=== PATIENT | female | born 1975 | race Hispanic/Latino ===

== ENCOUNTER 2017-11-12 22:22 | Emergency (ER) | payer MEDICAID ==
[~2017-11-12 22:22] MED LIST: AEC81 PO; ATOR10 PO; CANA300T PO; FENO48TA4 PO; HUMALOG 70/30 SQ; INSU100V12 SQ; LINA5TAB PO; LOSA100T29 PO; METF10004 PO; PRAV20TA4 PO; SERT50TA12 PO
[2017-11-12 23:42] LABS: BASOPHILS % (AUTO) 0.5 % (0.0-5.0); EOSINOPHILS % (AUTO) 3.3 % (0.0-8.0); HEMATOCRIT 39.7 % (36-48); LYMPHOCYTES % (AUTO) 34.2 % (21.0-51.0); MEAN CORPUSCULAR HEMOGLOBIN 29.8 pg (27.0-33.0); MEAN CORPUSCULAR HGB CONC 34.5 g/dL (32.0-36.0); MEAN CORPUSCULAR VOLUME 86.3 fL (79-99); MONOCYTES % (AUTO) 7.9 % (3.0-13.0); NEUTROPHILS % (AUTO) 54.1 % (40.0-77.0); PLATELET COUNT (AUTO) 168 K/uL (130-400); RED CELL DISTRIBUTION WIDTH 12.6 % (11.0-15.5); WHITE BLOOD COUNT (AUTO) 5.4 K/uL (4.8-10.8)
[2017-11-12] MEDS ORDERED: KETOROLAC TROMETHAMINE 30MG/ML ONE (23:54)
[2017-11-12] MEDS ORDERED: ONDANSETRON HCL 4 MG/2 ML VIAL ONE (23:54)
[2017-11-13 00:01] LABS: ALBUMIN 3.3 g/dL (3.5-5.0); BILIRUBIN,TOTAL 0.3 mg/dL (0.2-1.0); CREATININE 1.2 mg/dL (0.5-1.5); POTASSIUM 4.4 mmol/L (3.5-5.1); TOTAL PROTEIN, SERUM 7.6 g/dL (6.0-8.3)
[2017-11-13] MEDS ORDERED: SODIUM CHLORIDE 0.9% 1000ML 1,000 ML IV ONE (00:46)
[2017-11-13] MEDS ORDERED: INSULIN HUMULIN R 100 UNIT/ML 3ML ONE ×2 (00:48→02:50)
[2017-11-13 01:38] LABS: APPEARANCE,URINE Clear (CLEAR); BILIRUBIN,URINE Negative (NEGATIVE); COLOR,URINE Yellow (YELLOW); GLUCOSE, URINE (UA) >=1000 mg/dL (NEGATIVE); KETONES,URINE Negative (NEGATIVE); LEUKOCYTE ESTERASE ,URINE Negative (NEGATIVE); NITRATE,URINE Negative (NEGATIVE); OCCULT BLOOD,URINE Negative (NEGATIVE); PROTEIN,URINE Negative (NEGATIVE); UROBILINOGEN,URINE 0.2 mg/dL (0.2-1.0)
[2017-11-13 01:52] LABS: BACTERIA,URINE None Seen /HPF (None Seen); RBC,URINE None Seen /HPF (0-1); SQUAMOUS EPITHELIAL CELL,UR Few /LPF (0-2); WBC,URINE None Seen /HPF (0-1); YEAST,URINE BUDDING None Seen /HPF (None Seen)
== END 2017-11-13 03:59 | disposition home or self-care (01) ==
LOC: EDH 22:22
DX: E11.65 Type 2 diabetes mellitus with hyperglycemia (principal); E11.9 Type 2 diabetes mellitus without complications; I10 Essential (primary) hypertension; Z87.442 Personal history of urinary calculi; Z88.0 Allergy status to penicillin; Z88.1 Allergy status to other antibiotic agents
CPT/HCPCS: 36415; 74176; 80053; 81001; 82009; 82948 ×3; 85025; 96374; 96375; 96376; 99285; J1815 ×2; J1885; J2405; J7030

== ENCOUNTER 2017-12-05 18:20 | Emergency (ER) | payer MEDICAID ==
[2017-12-05] MEDS ORDERED: ASPIRIN 325 MG TABLET ONE (18:35)
[2017-12-05 19:01] LABS: BASOPHILS % (AUTO) 0.6 % (0.0-5.0); EOSINOPHILS % (AUTO) 1.5 % (0.0-8.0); LYMPHOCYTES % (AUTO) 34.8 % (21.0-51.0); MEAN CORPUSCULAR HEMOGLOBIN 29.8 pg (27.0-33.0); MEAN CORPUSCULAR HGB CONC 35.4 g/dL (32.0-36.0); MEAN CORPUSCULAR VOLUME 84.3 fL (79-99); MONOCYTES % (AUTO) 7.9 % (3.0-13.0); NEUTROPHILS % (AUTO) 55.2 % (40.0-77.0); NUCLEATED RED BLOOD CELLS 0.1 % (0.0-0.19); PLATELET COUNT (AUTO) 190 K/uL (130-400); RED BLOOD CELL COUNT(AUTO) 4.27 MIL/uL (4.00-5.50)
[2017-12-05 19:10] LABS: CARBON DIOXIDE 26 mmol/L (21-32); CHLORIDE 99 mmol/L (101-111); CREATININE 1.6 mg/dL (0.5-1.5); GLOMERULAR FILTR. RATE CALC 38 mL/min (>60); GLUCOSE,RANDOM 236 mg/dL (70-105); POTASSIUM 3.6 mmol/L (3.5-5.1); SODIUM SERUM 136 mmol/L (136-145); UREA NITROGEN, BLOOD 30 mg/dL (7-18)
[2017-12-05 19:11] LABS: APPEARANCE,URINE Clear (CLEAR); BILIRUBIN,URINE Negative (NEGATIVE); COLOR,URINE Yellow (YELLOW); GLUCOSE, URINE (UA) 250 mg/dL (NEGATIVE); KETONES,URINE Trace mg/dL (NEGATIVE); LEUKOCYTE ESTERASE ,URINE Moderate (NEGATIVE); NITRATE,URINE Negative (NEGATIVE); OCCULT BLOOD,URINE Negative (NEGATIVE); PROTEIN,URINE Trace (NEGATIVE)
[2017-12-05 19:12] LABS: INR 0.87 (0.85-1.15); PARTIAL THROMBOPLASTIN TIME 23.6 SEC (26.3-35.5); PROTHROMBIN TIME 9.2 SEC (9.6-11.6)
[2017-12-05 19:18] LABS: AMPHET/METH SCREEN,URINE NEGATIVE (NEGATIVE); BARBITURATE SCREEN, URINE NEGATIVE (NEGATIVE); BENZODIAZEPINES SCREEN,URINE NEGATIVE (NEGATIVE); CANNABINOID SCREEN,URINE NEGATIVE (NEGATIVE); COCAINE SCREEN,URINE NEGATIVE (NEGATIVE); OPIATE SCREEN,URINE NEGATIVE (NEGATIVE); PHENCYCLIDINE SCREEN,URINE NEGATIVE (NEGATIVE)
[2017-12-05 19:24] LABS: ALANINE AMINOTRANSFERASE 30 U/L (12-78); ASPARTATE AMINOTRANSFERASE 22 U/L (10-37); BILIRUBIN,TOTAL 0.3 mg/dL (0.2-1.0); CREATINE KINASE MB < 0.5 ng/mL (0.5-3.6); CREATINE KINASE, TOTAL 94 U/L (21-232); MYOGLOBIN 29 ng/mL (10-92); TOTAL PROTEIN, SERUM 7.2 g/dL (6.0-8.3)
[2017-12-05 19:52] LABS: BACTERIA,URINE Few /HPF (None Seen); RBC,URINE 0-1 /HPF (0-1); SQUAMOUS EPITHELIAL CELL,UR Moderate /LPF (0-2)
[2017-12-05 19:53] LABS: MUCUS,URINE Rare LPF (None Seen)
== END 2017-12-05 23:29 | disposition home or self-care (01) ==
LOC: EDH 18:20
DX: R07.89 Other chest pain (principal); R55 Syncope and collapse; I10 Essential (primary) hypertension; E11.9 Type 2 diabetes mellitus without complications; Z87.442 Personal history of urinary calculi; Z90.710 Acquired absence of both cervix and uterus; Z88.0 Allergy status to penicillin; Z88.8 Allergy status to other drugs, medicaments and biological substances
CPT/HCPCS: 36415; 70450; 71045; 80053; 80305; 81001; 82550; 82553; 83874; 84484; 85025; 85378; 85610; 85730; 93005

== ENCOUNTER 2018-09-29 23:59 | Observation (INO) | payer MEDICAID ==
[~2018-09-29] VITALS: Ht 154.9 cm; Wt 95.3 kg
[~2018-09-29 23:59] MED LIST changes: +ACET325C5 PO; -CANA300T PO; +HUM10VIA SQ; -HUMALOG 70/30 SQ; -INSU100V12 SQ; +LISI1TAB13 PO; -LOSA100T29 PO; -METF10004 PO; -PRAV20TA4 PO; +PREG75 PO
[2018-09-30] MEDS ORDERED: DEXTROSE 50%-WATER 25 GM/50 ML VIAL ONE (00:37)
[2018-09-30] MEDS ORDERED: DEXTROSE 10%-WATER 1,000 ML IV ONE (00:38)
[2018-09-30 01:10] LABS: BASOPHILS % (AUTO) 0.3 % (0.0-5.0); EOSINOPHILS % (AUTO) 1.7 % (0.0-8.0); LYMPHOCYTES % (AUTO) 35.3 % (21.0-51.0); MEAN CORPUSCULAR HEMOGLOBIN 28.5 pg (27.0-33.0); MEAN CORPUSCULAR HGB CONC 33.4 g/dL (32.0-36.0); MEAN CORPUSCULAR VOLUME 85.2 fL (79-99); MONOCYTES % (AUTO) 8.9 % (3.0-13.0); NEUTROPHILS % (AUTO) 53.8 % (40.0-77.0); NUCLEATED RED BLOOD CELLS 0.1 % (0.0-0.19); PLATELET COUNT (AUTO) 198 K/uL (130-400); RED BLOOD CELL COUNT(AUTO) 4.34 MIL/uL (4.00-5.50); RED CELL DISTRIBUTION WIDTH 13.1 % (11.0-15.5); WHITE BLOOD COUNT (AUTO) 8.2 K/uL (4.8-10.8)
[2018-09-30 01:26] LABS: ALBUMIN 2.9 g/dL (3.5-5.0); BILIRUBIN,TOTAL 0.3 mg/dL (0.2-1.0); CREATININE 1.1 mg/dL (0.5-1.5); POTASSIUM 4.1 mmol/L (3.5-5.1); TOTAL PROTEIN, SERUM 7.1 g/dL (6.0-8.3)
[2018-09-30 01:29] LABS: INR 0.87 (0.85-1.15); PROTHROMBIN TIME 9.2 SEC (9.6-11.6)
[2018-09-30] MEDS ORDERED: DEXTROSE 10 % IN WATER 500 ML IV SCH (05:00)
[2018-09-30] MEDS ORDERED: DEXTROSE 10%-WATER 1,000 ML IV SCH (05:00)
[2018-09-30 08:00] VITALS: BP 127/63
[2018-09-30] MEDS ORDERED: ACETAMINOPHEN 325 MG TAB PO PRN (10:00)
[2018-09-30 11:37] VITALS: BP 148/78
[2018-09-30] MEDS: HYDROCHLOROTHIAZIDE 25 MG TABLET PO SCH (15:14)
[2018-09-30] MEDS: ASPIRIN 81 MG EC TAB PO SCH (15:14)
[2018-09-30] MEDS: LISINOPRIL 20 MG TABLET PO SCH (15:14)
[2018-09-30] MEDS: FENOFIBRATE NANOCRYSTALLIZED 48 MG TAB PO SCH (15:15)
[2018-09-30] MEDS: PREGABALIN 75 MG CAPSULE PO SCH (15:16)
[2018-09-30 15:49] VITALS: BP 144/93
[2018-09-30 20:00] VITALS: BP 158/83
[2018-09-30] MEDS: SERTRALINE HCL 50 MG TABLET PO SCH (21:18)
[2018-09-30] MEDS: ATORVASTATIN CALCIUM 10 MG TABLET PO SCH (21:18)
[2018-09-30 23:30] VITALS: BP 153/171
[2018-10-01 03:55] VITALS: BP 140/76
[2018-10-01 04:46] LABS: HEMATOCRIT 33.6 % (36-48); MEAN CORPUSCULAR HEMOGLOBIN 29.2 pg (27.0-33.0); MEAN CORPUSCULAR HGB CONC 34.3 g/dL (32.0-36.0); NUCLEATED RED BLOOD CELLS 0.1 % (0.0-0.19); PLATELET COUNT (AUTO) 170 K/uL (130-400); RED BLOOD CELL COUNT(AUTO) 3.95 MIL/uL (4.00-5.50); RED CELL DISTRIBUTION WIDTH 12.7 % (11.0-15.5); WHITE BLOOD COUNT (AUTO) 7.3 K/uL (4.8-10.8)
[2018-10-01 04:50] LABS: CREATININE 0.9 mg/dL (0.5-1.5); POTASSIUM 4.5 mmol/L (3.5-5.1)
[2018-10-01 05:33] LABS: BASOPHILS % (MANUAL) 1 % (0-2); EOSINOPHILS % (MANUAL) 2 % (1-6); LYMPHOCYTES % (MANUAL) 44 % (22-44); MONOCYTES % (MANUAL) 7 % (2-9); REACTIVE LYMPHOCYTES 4 % (0-0); SEGMENTED NEUTROPHILS % 42 % (40-70)
[2018-10-01 05:34] LABS: MAN.DIFF COMMENT-IMPRESSION MANUAL DIFFERENTIAL; PLATELET MORPHOLOGY COMMENT ADEQUATE
[2018-10-01 07:30] VITALS: BP 145/69
[2018-10-01] MEDS: FENOFIBRATE NANOCRYSTALLIZED 48 MG TAB PO SCH (08:43)
[2018-10-01] MEDS: ASPIRIN 81 MG EC TAB PO SCH (08:43)
[2018-10-01] MEDS: HYDROCHLOROTHIAZIDE 25 MG TABLET PO SCH (08:44)
[2018-10-01] MEDS: LISINOPRIL 20 MG TABLET PO SCH (08:44)
[2018-10-01] MEDS: PREGABALIN 75 MG CAPSULE PO SCH (08:44)
[2018-10-01 11:00] VITALS: BP 131/75
[2018-10-01 13:07] LABS: APPEARANCE,URINE Clear (CLEAR); BILIRUBIN,URINE Negative (NEGATIVE); COLOR,URINE Yellow (YELLOW); GLUCOSE, URINE (UA) 500 mg/dL (NEGATIVE); KETONES,URINE Negative (NEGATIVE); LEUKOCYTE ESTERASE ,URINE Negative (NEGATIVE); NITRATE,URINE Negative (NEGATIVE); OCCULT BLOOD,URINE Negative (NEGATIVE); PROTEIN,URINE Trace (NEGATIVE); UROBILINOGEN,URINE 0.2 mg/dL (0.2-1.0)
[2018-10-01 13:08] LABS: BACTERIA,URINE Rare /HPF (None Seen); RBC,URINE 0-1 /HPF (0-1); SQUAMOUS EPITHELIAL CELL,UR Rare /HPF (0-2); WBC,URINE 0-1 /HPF (0-1)
[2018-10-01 13:14] LABS: AMPHET/METH SCREEN,URINE NEGATIVE (NEGATIVE); BARBITURATE SCREEN, URINE NEGATIVE (NEGATIVE); BENZODIAZEPINES SCREEN,URINE NEGATIVE (NEGATIVE); CANNABINOID SCREEN,URINE NEGATIVE (NEGATIVE); COCAINE SCREEN,URINE NEGATIVE (NEGATIVE); OPIATE SCREEN,URINE NEGATIVE (NEGATIVE); PHENCYCLIDINE SCREEN,URINE NEGATIVE (NEGATIVE)
[2018-10-01 16:00] VITALS: BP 140/80
[2018-10-01] MEDS ORDERED: INSULIN HUMULIN 70/30 100 UNIT/ML 3ML SQ ONE (18:15)
[2018-10-01 20:00] VITALS: BP 137/81
[2018-10-01] MEDS: ATORVASTATIN CALCIUM 10 MG TABLET PO SCH (20:24)
[2018-10-01] MEDS: SERTRALINE HCL 50 MG TABLET PO SCH (20:24)
[2018-10-02] VITALS: BP 128/98
[2018-10-02 04:00] VITALS: BP 125/72
[2018-10-02] MEDS ORDERED: INSULIN HUMULIN 70/30 100 UNIT/ML 3ML SQ ONE (07:30)
[2018-10-02 08:00] VITALS: BP 112/75
[2018-10-02] MEDS: ASPIRIN 81 MG EC TAB PO SCH (10:13)
[2018-10-02] MEDS: HYDROCHLOROTHIAZIDE 25 MG TABLET PO SCH (10:13)
[2018-10-02] MEDS: FENOFIBRATE NANOCRYSTALLIZED 48 MG TAB PO SCH (10:14)
[2018-10-02] MEDS: PREGABALIN 75 MG CAPSULE PO SCH (10:14)
[2018-10-02] MEDS: LISINOPRIL 20 MG TABLET PO SCH (10:14)
[2018-10-02 11:58] VITALS: BP 127/76
[2018-10-02] MEDS ORDERED: INSU100I35 SQ ×2 (14:10→14:11)
== END 2018-10-02 15:45 | disposition home or self-care (01) ==
LOC: EDH 23:59 → EDHIP 09-30 01:55 → 3DH 09-30 04:21
PROVIDERS: ADMIT Internal Medicine Nephrology; ATTEND Internal Medicine Nephrology
DX: E11.649 Type 2 diabetes mellitus with hypoglycemia without coma (principal); E11.51 Type 2 diabetes mellitus with diabetic peripheral angiopathy without gangrene; E11.65 Type 2 diabetes mellitus with hyperglycemia; I10 Essential (primary) hypertension; E78.00 Pure hypercholesterolemia, unspecified; Z88.0 Allergy status to penicillin; Z90.49 Acquired absence of other specified parts of digestive tract; Z90.710 Acquired absence of both cervix and uterus; Z82.49 Family history of ischemic heart disease and other diseases of the circulatory system; Z83.3 Family history of diabetes mellitus; Z91.19 Patient's noncompliance with other medical treatment and regimen
CPT/HCPCS: 36415 ×2; 80048; 80053; 80305; 81001; 82550; 82948 ×28; 84484; 85025 ×2; 85610; 85730; 93005; 96372; 99291; A4510; G0378 ×62; J1815 ×2; J3490; J7070

== ENCOUNTER 2018-10-02 20:37 | Emergency (ER) | payer MEDICAID ==
[~2018-10-02 20:37] MED LIST changes: +INSU100I35 SQ; -LINA5TAB PO
[2018-10-02 21:06] LABS: APPEARANCE,URINE Clear (CLEAR); BILIRUBIN,URINE Negative (NEGATIVE); COLOR,URINE Yellow (YELLOW); GLUCOSE, URINE (UA) Negative (NEGATIVE); KETONES,URINE Negative (NEGATIVE); LEUKOCYTE ESTERASE ,URINE Negative (NEGATIVE); NITRATE,URINE Negative (NEGATIVE); OCCULT BLOOD,URINE Negative (NEGATIVE); PH,URINE 5.5 (5.0-8.0); PROTEIN,URINE POS 1+ (NEGATIVE)
[2018-10-02 21:14] LABS: BACTERIA,URINE Rare /HPF (None Seen); RBC,URINE None Seen /HPF (0-1); SQUAMOUS EPITHELIAL CELL,UR 0-2 /HPF (0-2); WBC,URINE 0-1 /HPF (0-1)
[2018-10-02] MEDS ORDERED: DEXTROSE 50%-WATER 50 ML DISP.SYRIN IV ONE (21:28)
[2018-10-02 21:42] LABS: BASOPHILS % (AUTO) 0.9 % (0.0-5.0); HEMATOCRIT 37.3 % (36-48); LYMPHOCYTES % (AUTO) 23.8 % (21.0-51.0); MEAN CORPUSCULAR HEMOGLOBIN 29.1 pg (27.0-33.0); MEAN CORPUSCULAR HGB CONC 34.5 g/dL (32.0-36.0); MEAN CORPUSCULAR VOLUME 84.6 fL (79-99); MONOCYTES % (AUTO) 3.8 % (3.0-13.0); NEUTROPHILS % (AUTO) 70.5 % (40.0-77.0); PLATELET COUNT (AUTO) 223 K/uL (130-400); RED BLOOD CELL COUNT(AUTO) 4.41 MIL/uL (4.00-5.50); RED CELL DISTRIBUTION WIDTH 13.2 % (11.0-15.5); WHITE BLOOD COUNT (AUTO) 9.3 K/uL (4.8-10.8)
[2018-10-02 21:57] LABS: ALBUMIN 3.3 g/dL (3.5-5.0); BILIRUBIN,TOTAL 0.3 mg/dL (0.2-1.0); POTASSIUM 3.7 mmol/L (3.5-5.1); TOTAL PROTEIN, SERUM 7.8 g/dL (6.0-8.3)
== END 2018-10-03 00:46 | disposition home or self-care (01) ==
LOC: EDH 20:37
DX: E10.649 Type 1 diabetes mellitus with hypoglycemia without coma (principal); I10 Essential (primary) hypertension; Z87.442 Personal history of urinary calculi; Z90.710 Acquired absence of both cervix and uterus; Z90.49 Acquired absence of other specified parts of digestive tract; Z88.0 Allergy status to penicillin; Z88.1 Allergy status to other antibiotic agents
CPT/HCPCS: 36415; 80053; 81001; 82948 ×4; 85025; 96374; 99283; J7070

== ENCOUNTER 2018-10-03 05:22 | Emergency (ER) | payer MEDICAID ==
[~2018-10-03 05:22] MED LIST changes: -HUM10VIA SQ
[2018-10-03 05:40] LABS: BASOPHILS % (AUTO) 0.5 % (0.0-5.0); EOSINOPHILS % (AUTO) 1.9 % (0.0-8.0); HEMATOCRIT 37.6 % (36-48); LYMPHOCYTES % (AUTO) 26.7 % (21.0-51.0); MEAN CORPUSCULAR HEMOGLOBIN 28.4 pg (27.0-33.0); MEAN CORPUSCULAR HGB CONC 33.9 g/dL (32.0-36.0); MEAN CORPUSCULAR VOLUME 83.9 fL (79-99); MONOCYTES % (AUTO) 7.7 % (3.0-13.0); NEUTROPHILS % (AUTO) 63.2 % (40.0-77.0); PLATELET COUNT (AUTO) 194 K/uL (130-400); RED BLOOD CELL COUNT(AUTO) 4.49 MIL/uL (4.00-5.50); RED CELL DISTRIBUTION WIDTH 13.2 % (11.0-15.5); WHITE BLOOD COUNT (AUTO) 8.8 K/uL (4.8-10.8)
[2018-10-03] MEDS ORDERED: ONDANSETRON ODT 4 MG TAB ONE (06:02)
[2018-10-03 06:16] LABS: CARBON DIOXIDE 29 mmol/L (21-32); CHLORIDE 101 mmol/L (101-111); GLOMERULAR FILTR. RATE CALC 65 mL/min (>60); GLUCOSE,RANDOM 97 mg/dL (70-105); SODIUM SERUM 139 mmol/L (136-145); UREA NITROGEN, BLOOD 22 mg/dL (7-18)
[2018-10-03 06:21] LABS: ALANINE AMINOTRANSFERASE 26 U/L (12-78); ASPARTATE AMINOTRANSFERASE 21 U/L (10-37); BILIRUBIN,DIRECT < 0.1 mg/dL (0.0-0.3); BILIRUBIN,TOTAL 0.2 mg/dL (0.2-1.0); LIPASE 412 U/L (114-286); TOTAL PROTEIN, SERUM 7.3 g/dL (6.0-8.3)
== END 2018-10-03 07:00 | disposition home or self-care (01) ==
LOC: EDH 05:22
DX: E11.649 Type 2 diabetes mellitus with hypoglycemia without coma (principal); I10 Essential (primary) hypertension; Z88.1 Allergy status to other antibiotic agents; Z88.0 Allergy status to penicillin; Z90.710 Acquired absence of both cervix and uterus; Z98.890 Other specified postprocedural states
CPT/HCPCS: 36415; 80048; 80076; 82948; 83690; 84484; 84681; 85025; 93005

== ENCOUNTER 2019-02-11 19:20 | Emergency (ER) | payer MEDICAID ==
[2019-02-11] MEDS ORDERED: LIDOCAINE 2%-EPI 1:200,000 20 ML VIAL IJ ONE (19:40)
== END 2019-02-11 20:44 | disposition home or self-care (01) ==
LOC: EDH 19:20
DX: N76.4 Abscess of vulva (principal); N76.2 Acute vulvitis; A49.02 Methicillin resistant Staphylococcus aureus infection, unspecified site; I10 Essential (primary) hypertension; E11.9 Type 2 diabetes mellitus without complications; Z87.442 Personal history of urinary calculi; Z88.0 Allergy status to penicillin; Z88.1 Allergy status to other antibiotic agents; Z90.49 Acquired absence of other specified parts of digestive tract; Z90.710 Acquired absence of both cervix and uterus; Z79.4 Long term (current) use of insulin
CPT/HCPCS: 56405; 99284; J3490; 10060

== ENCOUNTER 2019-03-28 02:28 | Observation (INO) | payer MEDICAID ==
[~2019-03-28] VITALS: Ht 154.9 cm; Wt 92.0 kg
[2019-03-28 03:12] LABS: BASOPHILS % (AUTO) 0.4 % (0.0-5.0); EOSINOPHILS % (AUTO) 2.5 % (0.0-8.0); LYMPHOCYTES % (AUTO) 31.1 % (21.0-51.0); MEAN CORPUSCULAR HEMOGLOBIN 30.4 pg (27.0-33.0); MEAN CORPUSCULAR HGB CONC 34.9 g/dL (32.0-36.0); MEAN CORPUSCULAR VOLUME 87.1 fL (79-99); MONOCYTES % (AUTO) 7.8 % (3.0-13.0); NEUTROPHILS % (AUTO) 58.2 % (40.0-77.0); PLATELET COUNT (AUTO) 209 K/uL (130-400); RED BLOOD CELL COUNT(AUTO) 3.79 MIL/uL (4.00-5.50); RED CELL DISTRIBUTION WIDTH 13.4 % (11.0-15.5); WHITE BLOOD COUNT (AUTO) 7.5 K/uL (4.8-10.8)
[2019-03-28 03:27] LABS: ALBUMIN 2.4 g/dL (3.5-5.0); BILIRUBIN,TOTAL 0.1 mg/dL (0.2-1.0); CREATININE 1.3 mg/dL (0.5-1.5); POTASSIUM 3.5 mmol/L (3.5-5.1); TOTAL PROTEIN, SERUM 5.6 g/dL (6.0-8.3)
[2019-03-28 04:04] LABS: CREATININE 1.2 mg/dL (0.5-1.5); POTASSIUM 4.1 mmol/L (3.5-5.1)
[2019-03-28 04:09] LABS: ALBUMIN 2.7 g/dL (3.5-5.0); BILIRUBIN,TOTAL 0.1 mg/dL (0.2-1.0); TOTAL PROTEIN, SERUM 6.5 g/dL (6.0-8.3)
[2019-03-28 04:30] LABS: APPEARANCE,URINE Clear (CLEAR); BILIRUBIN,URINE Negative (NEGATIVE); COLOR,URINE Yellow (YELLOW); GLUCOSE, URINE (UA) Negative (NEGATIVE); KETONES,URINE Negative (NEGATIVE); LEUKOCYTE ESTERASE ,URINE Negative (NEGATIVE); NITRATE,URINE Negative (NEGATIVE); OCCULT BLOOD,URINE Negative (NEGATIVE); PROTEIN,URINE POS 1+ mg/dL (NEGATIVE); UROBILINOGEN,URINE 0.2 mg/dL (0.2-1.0)
[2019-03-28] MEDS ORDERED: DEXTROSE 50%-WATER 50 ML DISP.SYRIN IV ONE (04:36)
[2019-03-28 04:37] LABS: AMPHET/METH SCREEN,URINE NEGATIVE (NEGATIVE); BARBITURATE SCREEN, URINE NEGATIVE (NEGATIVE); BENZODIAZEPINES SCREEN,URINE NEGATIVE (NEGATIVE); CANNABINOID SCREEN,URINE NEGATIVE (NEGATIVE); COCAINE SCREEN,URINE POSITIVE (NEGATIVE); OPIATE SCREEN,URINE NEGATIVE (NEGATIVE); PHENCYCLIDINE SCREEN,URINE NEGATIVE (NEGATIVE)
[2019-03-28 04:43] LABS: BACTERIA,URINE Few /HPF (None Seen); MUCUS,URINE Rare LPF (None Seen); RBC,URINE None Seen /HPF (0-1); WBC,URINE 0-1 /HPF (0-1)
[2019-03-28] MEDS ORDERED: DEXTROSE 10%-WATER 1,000 ML IV ONE (06:45)
[2019-03-28] MEDS ORDERED: ACETAMINOPHEN 325 MG TAB PO PRN (07:15)
[2019-03-28] MEDS ORDERED: DEXTROSE 10%-WATER 1,000 ML IV SCH (07:15)
[2019-03-28] MEDS ORDERED: ONDANSETRON HCL 4 MG/2 ML VIAL IVP PRN (07:15)
[2019-03-28] MEDS ORDERED: PANTOPRAZOLE SODIUM 40 MG TABLET.DR PO SCH (07:30)
[2019-03-28 08:00] VITALS: BP 143/91
--- NOTE | 2019-03-28 08:20 | NUR ---
REFUSING TELEMETRY MONITORING PATIENT IS ALERT AND ORIENTED X3, REFUSES TO TELEMETRY MONITORING. Addendum: 03/28/19 at 1118 by GABRIEL ASHLEY RN RN PATIENT SIGNED REFUSAL TO SUBMIT TO TELEMETRY MONITORING FORM. PLACED IN PATIENT CHART.
[2019-03-28] MEDS ORDERED: DEXTROSE 50%-WATER 50 ML DISP.SYRIN IV PRN (08:45)
[2019-03-28] MEDS ORDERED: GLUCAGON 1MG KIT 1 MG ML IM PRN (08:45)
--- NOTE | 2019-03-28 10:45 | NUR ---
PAGERekha SAUL PAGED PRIMARY MD DR. SAUL BECAUSE EKG ABNORMAL RESULTS DONE IN ER 03/28/19 AT 0245 IS "ACUTE ME, UNCONFIRMED DIAGNOSIS." REVIEWED ER TRIAGE NOTE AND NOT CLEAR IF MD IS AWARE.
--- NOTE | 2019-03-28 10:58 | NUR ---
DR. SAUL INFORMED OF ER EKG RESULTS, MD DOES STATE HE WAS NOT AWARE AND PLACED ORDERS.
[2019-03-28 11:00] VITALS: BP_SYST 126; BP_SYST 133; BP_DIAS 67; BP_DIAS 79
[2019-03-28 12:32] LABS: CREATINE KINASE, TOTAL 104 U/L (21-232); MYOGLOBIN 25 ng/mL (10-92); TROPONIN I < 0.04 ng/mL (0.00-0.06)
[2019-03-28] MEDS ORDERED: SODIUM CHLORIDE 0.9% 1000ML 1,000 ML IV SCH (13:15)
[2019-03-28 13:30] LABS: CREATININE 1.2 mg/dL (0.5-1.5); POTASSIUM 4.4 mmol/L (3.5-5.1)
[2019-03-28 13:33] LABS: HEMOGLOBIN A1C 10.9 % (4.0-6.0)
[2019-03-28 13:44] LABS: THYROID STIMULATING HORMONE 1.43 uIU/mL (0.36-3.74); URIC ACID 7.6 mg/dL (2.6-7.2)
[2019-03-28 16:00] VITALS: BP 142/74
--- NOTE | 2019-03-28 17:10 | NUR ---
AMA PATIENT STATES SHE HAS TO LEAVE HOSPITAL FOR FAMILY EMERGENCY. PATIENT WILLINGLY LEAVING HOSPITAL AGAINST MEDICAL ADVICE. INFORMED PATIENT OF RISKS OF LEAVING AMA. PATIENT ALERT AND ORIENTED X3, SIGNED AMA FORMED. REMOVED 20G IV FROM LEFT AC, CATHETER INTACT.
--- NOTE | 2019-03-28 17:25 | NUR ---
DR. SAUL AWARE SPOKE TO MD VIA TELEPHONE, MD AWARE OF PATIENT LEAVING HOSPITAL AMA.
== END 2019-03-28 17:14 | disposition left against medical advice (07) ==
LOC: EDH 02:28 → EDHIP 02:29 → 4AH 07:43
PROVIDERS: ADMIT Internal Medicine Nephrology; ATTEND Internal Medicine Nephrology
DX: E11.649 Type 2 diabetes mellitus with hypoglycemia without coma (principal); E11.65 Type 2 diabetes mellitus with hyperglycemia; E11.21 Type 2 diabetes mellitus with diabetic nephropathy; E87.1 Hypo-osmolality and hyponatremia; I10 Essential (primary) hypertension; Z87.442 Personal history of urinary calculi; Z90.710 Acquired absence of both cervix and uterus; Z91.19 Patient's noncompliance with other medical treatment and regimen; Z90.49 Acquired absence of other specified parts of digestive tract
CPT/HCPCS: 36415; 80053 ×2; 80305; 81001; 82550 ×2; 82948 ×6; 83036; 83874; 83935; 84300; 84443; 84484 ×2; 84550; 85025; 93005; 96360; 96361; 99284; G0378 ×15; J3490; J7070; 80048

== ENCOUNTER 2020-03-15 23:40 | Emergency (ER) | payer MEDICAID ==
[~2020-03-15 23:40] MED LIST changes: -ACET325C5 PO; +ACET325C6 PO; -FENO48TA4 PO; +FENO48TA9 PO; -LISI1TAB13 PO; +LISI1TAB29 PO
[2020-03-16] MEDS ORDERED: IPRATROPIUM/ALBUTEROL SULFATE 3 ML SOLUTION IH ONE (00:11)
== END 2020-03-16 00:59 | disposition home or self-care (01) ==
LOC: EDH 23:40
DX: J45.909 Unspecified asthma, uncomplicated (principal); E11.9 Type 2 diabetes mellitus without complications; I10 Essential (primary) hypertension; Z90.49 Acquired absence of other specified parts of digestive tract; Z90.710 Acquired absence of both cervix and uterus; Z98.890 Other specified postprocedural states; Z88.6 Allergy status to analgesic agent; Z88.0 Allergy status to penicillin
CPT/HCPCS: 94640

== ENCOUNTER 2020-11-13 21:51 | Emergency (ER) | payer MEDICAID ==
[2020-11-13] MEDS ORDERED: ACETAMINOPHEN EXTRA STRENGTH 500 MG TABLET ONE (22:10)
[2020-11-13 22:19] LABS: BASOPHILS % (AUTO) 0.4 % (0.0-5.0); EOSINOPHILS % (AUTO) 1.6 % (0.0-8.0); MEAN CORPUSCULAR HEMOGLOBIN 29.1 pg (27.0-33.0); MEAN CORPUSCULAR HGB CONC 34.7 g/dL (32.0-36.0); MEAN CORPUSCULAR VOLUME 83.7 fL (79-99); MONOCYTES % (AUTO) 6.8 % (3.0-13.0); NEUTROPHILS % (AUTO) 56.7 % (40.0-77.0); PLATELET COUNT (AUTO) 235 K/uL (130-400); RED CELL DISTRIBUTION WIDTH 12.5 % (11.0-15.5); WHITE BLOOD COUNT (AUTO) 7.5 K/uL (4.8-10.8)
[2020-11-13 22:34] LABS: ALBUMIN 3.1 g/dL (3.5-5.0); BILIRUBIN,TOTAL 0.3 mg/dL (0.2-1.0); CREATININE 2.1 mg/dL (0.5-1.5); POTASSIUM 4.6 mmol/L (3.5-5.1)
[2020-11-13] MEDS ORDERED: INSULIN HUMULIN R 100 UNIT/ML 3ML ONE (22:58)
[2020-11-13] MEDS ORDERED: SODIUM CHLORIDE 0.9% 1000ML 1,000 ML IV ONE (22:58)
[2020-11-13] MEDS ORDERED: CEFTRIAXONE SODIUM 1 GM ONE (23:27)
[2020-11-13] MEDS ORDERED: SODIUM CHLORIDE 0.9% 50 ML IV ONE (23:28)
[2020-11-13 23:48] LABS: APPEARANCE,URINE Clear (CLEAR); BILIRUBIN,URINE Negative (NEGATIVE); COLOR,URINE Yellow (YELLOW); GLUCOSE, URINE (UA) >=1000 mg/dL (NEGATIVE); KETONES,URINE Negative (NEGATIVE); LEUKOCYTE ESTERASE ,URINE Negative (NEGATIVE); NITRATE,URINE Negative (NEGATIVE); OCCULT BLOOD,URINE Negative (NEGATIVE); PH,URINE 5.5 (5.0-8.0); PROTEIN,URINE POS 2+ mg/dL (NEGATIVE); UROBILINOGEN,URINE 0.2 mg/dL (0.2-1.0)
[2020-11-13] MEDS ORDERED: MORPHINE SULFATE 2 MG/ML 1ML SYG ONE (23:51)
== END 2020-11-14 03:39 | disposition home or self-care (01) ==
LOC: EDH 21:51
DX: G44.319 Acute post-traumatic headache, not intractable (principal); E11.65 Type 2 diabetes mellitus with hyperglycemia; Z20.828 Contact with and (suspected) exposure to other viral communicable diseases; J45.909 Unspecified asthma, uncomplicated; I10 Essential (primary) hypertension; Z90.49 Acquired absence of other specified parts of digestive tract; Z90.710 Acquired absence of both cervix and uterus; Z98.890 Other specified postprocedural states; Z88.0 Allergy status to penicillin; Z88.1 Allergy status to other antibiotic agents; W01.0XXA Fall on same level from slipping, tripping and stumbling without subsequent striking against object, initial encounter; Y93.89 Activity, other specified; Y92.89 Other specified places as the place of occurrence of the external cause; Y99.8 Other external cause status
CPT/HCPCS: 36415 ×2; 70450; 74176; 80053; 81003; 82948 ×2; 83605 ×2; 84145; 84484 ×2; 85025; 87040 ×2; 87088; 87426; 93005; 96365; 96375; 99285; J0696; J1815; J7030; U0003

== ENCOUNTER 2021-01-08 13:13 | Emergency (ER) | payer MEDICAID ==
[~2021-01-08 13:13] MED LIST changes: +SERT-439 PO; -SERT50TA12 PO
[2021-01-08] MEDS ORDERED: KETOROLAC TROMETHAMINE 60 MG/2 ML VIAL ONE (13:43)
[2021-01-08] MEDS ORDERED: CYCLOBENZAPRINE HCL 10 MG TABLET ONE (13:43)
[2021-01-08] MEDS ORDERED: HYDROCODONE/ACETAMINOPHEN 10/325 MG TAB ONE (13:44)
== END 2021-01-08 14:43 | disposition home or self-care (01) ==
LOC: EDH 13:13
DX: S70.01XA Contusion of right hip, initial encounter (principal); S39.012A Strain of muscle, fascia and tendon of lower back, initial encounter; W18.39XA Other fall on same level, initial encounter; Y93.01 Activity, walking, marching and hiking; Y92.89 Other specified places as the place of occurrence of the external cause; Y99.8 Other external cause status
CPT/HCPCS: 72100; 73502; 96372; 99284; J1885

== ENCOUNTER 2021-01-17 05:22 | Inpatient (IN) | payer MEDICAID ==
[2021-01-17] VITALS (10 sets, daily range): BP systolic 98–170; BP diastolic 56–106
[~2021-01-17] VITALS: Ht 154.9 cm; Wt 105.7 kg
[~2021-01-17 05:22] MED LIST changes: +FENO48TA10 PO; -FENO48TA9 PO; -LISI1TAB29 PO; +LISI1TAB53 PO
[2021-01-17] MEDS ORDERED: ASPIRIN 325 MG TABLET ONE (05:54)
[2021-01-17] MEDS ORDERED: IPRATROPIUM/ALBUTEROL SULFATE 3 ML SOLUTION IH ONE (06:06)
[2021-01-17 06:10] LABS: BASOPHILS % (AUTO) 0.6 % (0.0-5.0); EOSINOPHILS % (AUTO) 4.8 % (0.0-8.0); HEMATOCRIT 37.5 % (36-48); LYMPHOCYTES % (AUTO) 23.4 % (21.0-51.0); MEAN CORPUSCULAR HEMOGLOBIN 28.2 pg (27.0-33.0); MEAN CORPUSCULAR HGB CONC 33.1 g/dL (32.0-36.0); MEAN CORPUSCULAR VOLUME 85.2 fL (79-99); NEUTROPHILS % (AUTO) 64.9 % (40.0-77.0); PLATELET COUNT (AUTO) 255 K/uL (130-400); RED CELL DISTRIBUTION WIDTH 12.7 % (11.0-15.5); WHITE BLOOD COUNT (AUTO) 10.8 K/uL (4.8-10.8)
[2021-01-17 06:30] LABS: ABG BASE EXCESS -1.1 mmol/L (-2.0-3.0); ABG OXYGEN SATURATION 91.4 % (95.0-99.0); ABG PCO2 42 mmHg (32-45)
[2021-01-17 06:30] LABS: ALBUMIN 2.6 g/dL (3.5-5.0); BILIRUBIN,TOTAL 0.2 mg/dL (0.2-1.0); CREATININE 1.8 mg/dL (0.5-1.5); POTASSIUM 4.6 mmol/L (3.5-5.1); TOTAL PROTEIN, SERUM 7.1 g/dL (6.0-8.3)
[2021-01-17] MEDS ORDERED: LORAZEPAM 2 MG/ML 1 ML VIAL ONE ×2 (06:34→22:17)
[2021-01-17 06:45] LABS: B-TYPE NATRIURETIC PEPTIDE 562 pg/mL (0-100)
[2021-01-17] MEDS ORDERED: 0.9%NACL 1000ML 1,000 ML IV ONE (06:50)
[2021-01-17] MEDS ORDERED: INSULIN HUMULIN R 100 UNIT/ML 3ML ONE ×4 (06:50→12:55)
[2021-01-17] MEDS ORDERED: NITROGLYCERIN 0.4 MG SL TAB SL ONE (07:03)
[2021-01-17] MEDS ORDERED: CLOPIDOGREL 300MG TAB ONE (07:03)
[2021-01-17] MEDS ORDERED: INSULIN GLARGINE 100 UNITS/ML 10 ML VIAL SQ SCH (08:45)
[2021-01-17] MEDS: INSULIN HUMULIN R 100 UNIT/ML 3ML SQ SCH ×3 (08:45→21:56)
[2021-01-17] MEDS ORDERED: DOXYCYCLINE 100MG+NS 250ML 250 ML IV SCH (08:45)
[2021-01-17] MEDS ORDERED: PHARMACY COMMUNICATION MISC SCH (08:45)
[2021-01-17] MEDS ORDERED: NITROGLYCERIN 0.4 MG SL TAB SL PRN (09:00)
[2021-01-17] MEDS ORDERED: MORPHINE 2 MG SYG IVP PRN (09:00)
[2021-01-17] MEDS ORDERED: DOXYCYCLINE 100MG+NS 250ML 250 ML IV ONE (09:19)
[2021-01-17 09:36] LABS: CRP QUANTITATIVE 5.5 mg/L (0.00-9.0)
[2021-01-17 09:48] LABS: HEMOGLOBIN A1C 13.8 % (4.0-6.0)
[2021-01-17] MEDS ORDERED: VANCOMYCIN PROTOCOL PER PHARMACY IV SCH (10:00)
[2021-01-17] MEDS: AZTREONAM 1 GM VIAL IVP SCH ×2 (10:00→18:59)
[2021-01-17] MEDS ORDERED: INSULIN HUMULIN R 100 UNIT/ML 3ML IV SCH (10:15)
[2021-01-17] MEDS ORDERED: VANCOMYCIN 1G/250ML KIT 250 ML IV SCH (10:30)
[2021-01-17] MEDS ORDERED: HEPARIN 5,000 UNIT VIAL ONE (10:41)
[2021-01-17 11:17] LABS: APPEARANCE,URINE Clear (CLEAR); BILIRUBIN,URINE Negative (NEGATIVE); COLOR,URINE Yellow (YELLOW); GLUCOSE, URINE (UA) >=1000 mg/dL (NEGATIVE); KETONES,URINE Negative (NEGATIVE); LEUKOCYTE ESTERASE ,URINE Negative (NEGATIVE); NITRATE,URINE Negative (NEGATIVE); OCCULT BLOOD,URINE Small (NEGATIVE); PROTEIN,URINE 300 mg/dL (NEGATIVE); UROBILINOGEN,URINE 0.2 mg/dL (0.2-1.0)
[2021-01-17 11:23] LABS: AMPHET/METH SCREEN,URINE NEGATIVE (NEGATIVE); BARBITURATE SCREEN, URINE NEGATIVE (NEGATIVE); BENZODIAZEPINES SCREEN,URINE NEGATIVE (NEGATIVE); CANNABINOID SCREEN,URINE NEGATIVE (NEGATIVE); COCAINE SCREEN,URINE POSITIVE (NEGATIVE); OPIATE SCREEN,URINE NEGATIVE (NEGATIVE); PHENCYCLIDINE SCREEN,URINE NEGATIVE (NEGATIVE)
[2021-01-17 11:47] LABS: BACTERIA,URINE Few /HPF (None Seen); RBC,URINE 0-1 /HPF (0-1); SQUAMOUS EPITHELIAL CELL,UR Rare /HPF (0-2)
[2021-01-17] MEDS ORDERED: COMPOUND IV REFRIGERATED 1 EACH IVSOLN MISC PRN (12:30)
[2021-01-17] MEDS ORDERED: VANCOMYCIN 1G 2 GM in 0.9% NACL 500ML IV.SOLN 500 ML IV ONE (12:30)
[2021-01-17] MEDS ORDERED: HEPARIN 10,000 UNIT/10ML (1,000 UNIT/ML) VIAL IV ONE (12:42)
[2021-01-17] MEDS ORDERED: HEPARIN 10,000 UNIT/10ML (1,000 UNIT/ML) VIAL ONE (12:55)
[2021-01-17] MEDS ORDERED: NITROGLYCERIN 2 MG VIAL IV ONE (12:55)
[2021-01-17] MEDS ORDERED: NICARDIPINE 25MG INJ IV ONE (12:55)
[2021-01-17] MEDS ORDERED: IOHEXOL 350 MG/ML 100ML INFUS..BTL IV ONE (12:55)
[2021-01-17] MEDS ORDERED: MIDAZOLAM HCL 1 MG/ML 2ML VIAL ONE (12:57)
[2021-01-17] MEDS ORDERED: LIDOCAINE HCL 400MG/20ML VIAL ONE (12:57)
[2021-01-17] MEDS ORDERED: FENTANYL CITRATE PF 50 MCG/1 ML 2ML VIAL ONE (12:57)
[2021-01-17] MEDS ORDERED: IOHEXOL-350 75 ML VIAL IV ONE (13:56)
[2021-01-17] MEDS ORDERED: MORPHINE 2 MG SYG ONE (14:09)
[2021-01-17] MEDS ORDERED: 0.9%NACL 1000ML 1,000 ML IV SCH (14:30)
[2021-01-17 16:26] LABS: INR 1.01 (0.85-1.15)
[2021-01-17] MEDS: DOXYCYCLINE 100MG+NS 250ML 250 ML IV SCH (21:41)
[2021-01-17] MEDS: INSULIN GLARGINE 100 UNITS/ML 10 ML VIAL SQ SCH (21:57)
[2021-01-17] MEDS: LORAZEPAM 2 MG/ML 1 ML VIAL IVP PRN (22:32)
[2021-01-18] VITALS (11 sets, daily range): BP systolic 95–141; BP diastolic 56–78
[2021-01-18] MEDS: AZTREONAM 1 GM VIAL IVP SCH ×3 (03:39→17:49)
[2021-01-18 06:32] LABS: ALBUMIN 2.2 g/dL (3.5-5.0); BILIRUBIN,TOTAL 0.2 mg/dL (0.2-1.0); CREATININE 1.7 mg/dL (0.5-1.5); CRP QUANTITATIVE 11.2 mg/L (0.00-9.0); POTASSIUM 3.9 mmol/L (3.5-5.1)
[2021-01-18] MEDS: INSULIN HUMULIN R 100 UNIT/ML 3ML SQ SCH ×7 (06:44→20:14)
[2021-01-18 06:57] LABS: BASOPHILS % (AUTO) 0.3 % (0.0-5.0); EOSINOPHILS % (AUTO) 1.4 % (0.0-8.0); HEMATOCRIT 32.1 % (36-48); LYMPHOCYTES % (AUTO) 23.4 % (21.0-51.0); MEAN CORPUSCULAR HEMOGLOBIN 29.5 pg (27.0-33.0); MEAN CORPUSCULAR HGB CONC 34.3 g/dL (32.0-36.0); MEAN CORPUSCULAR VOLUME 86.1 fL (79-99); MONOCYTES % (AUTO) 6.5 % (3.0-13.0); PLATELET COUNT (AUTO) 212 K/uL (130-400); RED BLOOD CELL COUNT(AUTO) 3.73 MIL/uL (4.00-5.50); RED CELL DISTRIBUTION WIDTH 13.1 % (11.0-15.5); WHITE BLOOD COUNT (AUTO) 11.5 K/uL (4.8-10.8)
[2021-01-18 07:02] LABS: INR 0.91 (0.85-1.15)
[2021-01-18 07:03] LABS: PARTIAL THROMBOPLASTIN TIME 22.7 SEC (26.3-35.5)
[2021-01-18] MEDS ORDERED: INSULIN HUMULIN R 100 UNIT/ML 3ML SQ SCH (07:30)
[2021-01-18] MEDS ORDERED: INSULIN GLARGINE 100 UNITS/ML 10 ML VIAL SQ SCH (08:00)
[2021-01-18] MEDS: HEPARIN 25,000 UNITS/250ML D5W 250 ML IV PRN ×2 (08:19→19:34)
[2021-01-18] MEDS ORDERED: PHARMACY COMMUNICATION MISC SCH (08:30)
[2021-01-18] MEDS ORDERED: HEPARIN 5,000 UNIT VIAL SQ SCH (08:30)
[2021-01-18] MEDS: INSULIN GLARGINE 100 UNITS/ML 10 ML VIAL SQ SCH (08:32)
[2021-01-18] MEDS ORDERED: CLOPIDOGREL 75MG TAB PO SCH (09:00)
[2021-01-18] MEDS: ATORVASTATIN 40 MG TABLET PO SCH (09:55)
[2021-01-18] MEDS: METOPROLOL SUCCINATE 50 MG TAB.SR.24H PO SCH (09:55)
[2021-01-18] MEDS: ASPIRIN 81MG CHEW TAB PO SCH (09:57)
[2021-01-18] MEDS: DOXYCYCLINE 100MG+NS 250ML 250 ML IV SCH ×2 (11:00→19:24)
[2021-01-18] MEDS: VANCOMYCIN 1G/250ML KIT 250 ML IV SCH (12:34)
[2021-01-18] MEDS ORDERED: OMEP20CA12 PO (15:52)
[2021-01-18] MEDS ORDERED: FURO20TA6 PO (15:53)
[2021-01-18] MEDS ORDERED: MECL-160 PO (15:55)
[2021-01-18] MEDS ORDERED: INSU100I35 SQ (15:56)
[2021-01-18] MEDS ORDERED: FLUT220HFA IH (15:57)
[2021-01-18] MEDS ORDERED: DOXY100V2 IV (15:59)
[2021-01-18] MEDS ORDERED: HEPARIN 5,000 UNIT VIAL IV STA (18:12)
[2021-01-18] MEDS ORDERED: LORAZEPAM 2 MG/ML 1 ML VIAL ONE (21:07)
[2021-01-19] MEDS: AZTREONAM 1 GM VIAL IVP SCH ×3 (00:03→18:55)
[2021-01-19 00:44] LABS: INR 0.96 (0.85-1.15); PROTHROMBIN TIME 10.5 SEC (9.6-11.6)
[2021-01-19 00:46] LABS: PARTIAL THROMBOPLASTIN TIME 43.7 SEC (26.3-35.5)
[2021-01-19 04:00] VITALS: BP 120/55
[2021-01-19 05:21] LABS: HEMATOCRIT 29.7 % (36-48); MEAN CORPUSCULAR HEMOGLOBIN 29.4 pg (27.0-33.0); MEAN CORPUSCULAR VOLUME 86.6 fL (79-99); NUCLEATED RED BLOOD CELLS 0.2 % (0.0-0.19); RED BLOOD CELL COUNT(AUTO) 3.43 MIL/uL (4.00-5.50); RED CELL DISTRIBUTION WIDTH 13.2 % (11.0-15.5); WHITE BLOOD COUNT (AUTO) 8.8 K/uL (4.8-10.8)
[2021-01-19 05:33] LABS: INR 0.93 (0.85-1.15); PROTHROMBIN TIME 10.2 SEC (9.6-11.6)
[2021-01-19 05:34] LABS: PARTIAL THROMBOPLASTIN TIME 42.9 SEC (26.3-35.5)
[2021-01-19 05:36] LABS: CREATININE 2.3 mg/dL (0.5-1.5); MAGNESIUM 1.6 mg/dL (1.80-2.40); POTASSIUM 4.1 mmol/L (3.5-5.1)
[2021-01-19] MEDS: INSULIN HUMULIN R 100 UNIT/ML 3ML SQ SCH ×8 (05:46→19:32)
[2021-01-19 07:42] LABS: INR 0.92 (0.85-1.15); PROTHROMBIN TIME 10.1 SEC (9.6-11.6)
[2021-01-19 07:43] LABS: PARTIAL THROMBOPLASTIN TIME 44.6 SEC (26.3-35.5)
[2021-01-19] MEDS: ATORVASTATIN 40 MG TABLET PO SCH (09:00)
[2021-01-19] MEDS: ASPIRIN 81MG CHEW TAB PO SCH (09:00)
[2021-01-19] MEDS: INSULIN GLARGINE 100 UNITS/ML 10 ML VIAL SQ SCH (09:25)
[2021-01-19] MEDS: METOPROLOL SUCCINATE 50 MG TAB.SR.24H PO SCH (09:31)
[2021-01-19] MEDS: DOXYCYCLINE 100MG+NS 250ML 250 ML IV SCH ×2 (09:31→19:32)
[2021-01-19 09:40] VITALS: BP 139/39
[2021-01-19] MEDS ORDERED: LORAZEPAM 2 MG/ML 1 ML VIAL ONE ×2 (10:51→20:31)
[2021-01-19] MEDS: LORAZEPAM 2 MG/ML 1 ML VIAL IVP PRN ×2 (10:54→20:37)
[2021-01-19] MEDS ORDERED: NOREPINEPHRINE BITARTRATE 8 MG in DEXTROSE 5%-WATER 250 ML IV PRN (12:15)
[2021-01-19] MEDS ORDERED: AMINOCAPROIC ACID 5,000MG VIAL 15,000 MG in 0.9% NACL 500ML IV.SOLN 420 ML IV PRN (12:15)
[2021-01-19] MEDS: VANCOMYCIN 1G/250ML KIT 250 ML IV SCH (12:50)
[2021-01-19 14:35] VITALS: BP 125/103
[2021-01-19] MEDS ORDERED: CLINDAMYCIN IVPB 900MG/50ML 50 ML IV SCH (15:00)
[2021-01-19] MEDS: MAGNESIUM 2GM PREMIX 50ML 50 ML IV PRN (19:46)
[2021-01-19 19:54] VITALS: BP 159/81
[2021-01-19 23:36] VITALS: BP 138/61
[2021-01-20] VITALS (27 sets, daily range): BP systolic 94–156; BP diastolic 43–81
[2021-01-20] MEDS: AZTREONAM 1 GM VIAL IVP SCH ×3 (00:22→19:02)
[2021-01-20] MEDS: INSULIN HUMULIN R 100 UNIT/ML 3ML SQ SCH ×5 (05:33→12:19)
[2021-01-20] MEDS: MAGNESIUM 2GM PREMIX 50ML 50 ML IV PRN ×2 (05:55→19:41)
[2021-01-20] MEDS: DOXYCYCLINE 100MG+NS 250ML 250 ML IV SCH ×2 (08:41→20:04)
[2021-01-20] MEDS: METOPROLOL SUCCINATE 50 MG TAB.SR.24H PO SCH (08:42)
[2021-01-20] MEDS: ATORVASTATIN 40 MG TABLET PO SCH (08:42)
[2021-01-20] MEDS: ASPIRIN 81MG CHEW TAB PO SCH (08:42)
[2021-01-20] MEDS: INSULIN GLARGINE 100 UNITS/ML 10 ML VIAL SQ SCH (08:45)
[2021-01-20] MEDS ORDERED: LORAZEPAM 2 MG/ML 1 ML VIAL ONE (09:34)
[2021-01-20] MEDS: LORAZEPAM 2 MG/ML 1 ML VIAL IVP PRN (09:35)
[2021-01-20 09:53] LABS: CREATININE 1.8 mg/dL (0.5-1.5); POTASSIUM 4.6 mmol/L (3.5-5.1)
[2021-01-20 09:57] LABS: ALBUMIN 2.4 g/dL (3.5-5.0); BILIRUBIN,TOTAL 0.2 mg/dL (0.2-1.0); TOTAL PROTEIN, SERUM 6.4 g/dL (6.0-8.3)
[2021-01-20] MEDS: VANCOMYCIN 1G/250ML KIT 250 ML IV SCH (12:17)
[2021-01-20] MEDS ORDERED: CLINDAMYCIN 900MG/6ML INJ ONE (12:26)
[2021-01-20] MEDS ORDERED: PAPAVERINE HCL 30 MG/ML 2ML VIAL ONE (12:27)
[2021-01-20] MEDS ORDERED: ESMOLOL HCL 10 MG/ML 10 ML VIAL ONE (12:32)
[2021-01-20] MEDS ORDERED: HEPARIN 10,000 UNIT/10ML (1,000 UNIT/ML) VIAL ONE (12:32)
[2021-01-20] MEDS ORDERED: LIDOCAINE PF 100MG/5ML (2%) SYRINGE 5ML ONE (12:32)
[2021-01-20] MEDS ORDERED: NITROGLYCERIN 50MG/D5W 250ML 1 BOT ONE (12:32)
[2021-01-20] MEDS ORDERED: FENTANYL CITRATE PF 50 MCG/1 ML 20ML VIAL IJ ONE (12:33)
[2021-01-20] MEDS ORDERED: ROCURONIUM 10MG/1ML SYR 10 MG/ML ML ONE (12:33)
[2021-01-20] MEDS ORDERED: NOREPINEPHRINE BITARTRATE 1 MG/1 ML ML IV ONE (12:33)
[2021-01-20] MEDS ORDERED: EPINEPHRINE PF 1MG AMP ONE (12:33)
[2021-01-20] MEDS ORDERED: SODIUM BICARB 50MEQ 50ML VIAL 150 ML ONE (12:33)
[2021-01-20] MEDS ORDERED: PROPOFOL 10 MG/ML 20ML VIAL IV ONE (12:33)
[2021-01-20] MEDS ORDERED: AMINOCAPROIC ACID 5,000MG VIAL ONE (12:33)
[2021-01-20] MEDS ORDERED: MIDAZOLAM HCL 1 MG/ML 2ML VIAL ONE (12:33)
[2021-01-20] MEDS ORDERED: KETAMINE HCL 100 MG/ML 5ML VIAL IJ ONE (12:36)
[2021-01-20] MEDS ORDERED: 0.9%NACL 1000ML 1,000 ML IV ONE (12:41)
[2021-01-20 15:16] LABS: ABG BASE EXCESS -5.2 mmol/L (-2.0-3.0); ABG HCO3 19.9 mmol/L (21.0-28.0); ABG OXYGEN SATURATION 99.1 % (95.0-99.0); ABG PCO2 37 mmHg (32-45)
[2021-01-20] MEDS ORDERED: ONDANSETRON 4MG INJ IV PRN (15:30)
[2021-01-20] MEDS ORDERED: TRAMADOL HCL 50 MG TABLET PO PRN (15:30)
[2021-01-20] MEDS ORDERED: MORPHINE 2 MG SYG IV PRN ×2 (15:30)
[2021-01-20] MEDS ORDERED: AMINOCAPROIC ACID 5,000MG VIAL 15,000 MG in 0.9% NACL 250ML 250 ML IV SCH (15:30)
[2021-01-20] MEDS ORDERED: ACETAMINOPHEN 650 MG SUPPOSITORY RC PRN (15:30)
[2021-01-20] MEDS ORDERED: NOREPINEPHRIN 4MG/NS 250ML 250 ML IV PRN (15:30)
[2021-01-20] MEDS ORDERED: 0.9%NACL 10ML VIAL IVP PRN (15:30)
[2021-01-20] MEDS ORDERED: NITROGLYCERIN 50MG/D5W 250ML 250 BOT IV SCH (15:30)
[2021-01-20] MEDS ORDERED: ALBUMIN (HUMAN) 5% 250 ML IV PRN (15:30)
[2021-01-20] MEDS ORDERED: ACETAMINOPHEN 325 MG TAB PO PRN (15:30)
[2021-01-20] MEDS ORDERED: POTASSIUM PHOS 15 mMOL+NS250ML 250 ML IV PRN (15:30)
[2021-01-20] MEDS ORDERED: GLUCAGON 1MG KIT 1 MG ML IM PRN (15:30)
[2021-01-20] MEDS ORDERED: 0.9% NACL 500ML IV.SOLN 500 ML IV SCH (15:30)
[2021-01-20] MEDS ORDERED: MAGNESIUM 2GM PREMIX 50ML 50 ML IV PRN (15:30)
[2021-01-20] MEDS ORDERED: PROPOFOL 1000 MG/100 ML 100 ML IV PRN (15:30)
[2021-01-20] MEDS ORDERED: EPINEPHRINE PF 1MG AMP 10 MG in DEXTROSE 5%-WATER 250 ML IV PRN (15:30)
[2021-01-20] MEDS ORDERED: DEXTROSE 50%-WATER 50 ML DISP.SYRIN IV PRN (15:30)
[2021-01-20] MEDS ORDERED: SODIUM BICARB 50MEQ 50ML VIAL IV PRN (15:30)
[2021-01-20] MEDS ORDERED: 0.9%NACL 1000ML 1,000 ML IV SCH (15:30)
[2021-01-20] MEDS ORDERED: CALCIUM GLUC 1GM 1 GM in 0.9%NACL 50ML 50 ML IV PRN (15:30)
[2021-01-20] MEDS ORDERED: PROTAMINE SULFATE 10 MG/ML 5 ML VIAL ONE (16:17)
[2021-01-20 16:32] LABS: ABG BASE EXCESS -0.6 mmol/L (-2.0-3.0); ABG HCO3 23.5 mmol/L (21.0-28.0); ABG OXYGEN SATURATION 98.5 % (95.0-99.0); ABG PCO2 36 mmHg (32-45)
[2021-01-20 17:17] LABS: ABG BASE EXCESS 0.3 mmol/L (-2.0-3.0); ABG HCO3 24.4 mmol/L (21.0-28.0); ABG OXYGEN SATURATION 93.3 % (95.0-99.0); ABG PCO2 37 mmHg (32-45)
[2021-01-20 17:38] LABS: HEMATOCRIT 26.6 % (36-48); MEAN CORPUSCULAR HEMOGLOBIN 28.8 pg (27.0-33.0); MEAN CORPUSCULAR HGB CONC 33.1 g/dL (32.0-36.0); MEAN CORPUSCULAR VOLUME 86.9 fL (79-99); NUCLEATED RED BLOOD CELLS 0.2 % (0.0-0.19); RED BLOOD CELL COUNT(AUTO) 3.06 MIL/uL (4.00-5.50); RED CELL DISTRIBUTION WIDTH 13.2 % (11.0-15.5); WHITE BLOOD COUNT (AUTO) 18.1 K/uL (4.8-10.8)
[2021-01-20 17:46] LABS: CREATININE 1.6 mg/dL (0.5-1.5); INR 1.04 (0.85-1.15); MAGNESIUM 1.9 mg/dL (1.80-2.40); PHOSPHORUS 3.8 mg/dL (2.5-4.9); PROTHROMBIN TIME 11.3 SEC (9.6-11.6)
[2021-01-20 17:48] LABS: PARTIAL THROMBOPLASTIN TIME 21.9 SEC (26.3-35.5)
[2021-01-20] MEDS: POTASSIUM CHLORIDE 20MEQ/100ML 100 ML IV PRN (18:44)
[2021-01-20] MEDS: EPINEPHRINE PF 1MG AMP 10 MG in 0.9% NACL 250ML 240 ML IV PRN (18:44)
[2021-01-20] MEDS: INSULIN REGULAR, HUMAN 3ML 100 UNIT in 0.9%NACL 100ML 99 ML IV SCH ×2 (18:45)
[2021-01-20 18:50] LABS: ABG BASE EXCESS -1.2 mmol/L (-2.0-3.0); ABG HCO3 22.5 mmol/L (21.0-28.0); ABG OXYGEN SATURATION 98.2 % (95.0-99.0); ABG PCO2 33 mmHg (32-45)
[2021-01-20 19:59] LABS: ABG BASE EXCESS -0.6 mmol/L (-2.0-3.0); ABG HCO3 24.3 mmol/L (21.0-28.0); ABG OXYGEN SATURATION 97.7 % (95.0-99.0); ABG PCO2 41 mmHg (32-45)
[2021-01-20 20:57] LABS: ABG BASE EXCESS 0.5 mmol/L (-2.0-3.0); ABG HCO3 25.5 mmol/L (21.0-28.0); ABG OXYGEN SATURATION 97.1 % (95.0-99.0); ABG PCO2 42 mmHg (32-45)
[2021-01-20 22:03] LABS: ABG BASE EXCESS 0.2 mmol/L (-2.0-3.0); ABG HCO3 25.6 mmol/L (21.0-28.0); ABG PCO2 45 mmHg (32-45)
[2021-01-20 23:22] LABS: ABG BASE EXCESS -0.9 mmol/L (-2.0-3.0); ABG OXYGEN SATURATION 96.4 % (95.0-99.0); ABG PCO2 41 mmHg (32-45)
[2021-01-21] VITALS (58 sets, daily range): BP systolic 84–176; BP diastolic 42–83
[2021-01-21] MEDS: AZTREONAM 1 GM VIAL IVP SCH ×3 (01:17→18:19)
[2021-01-21] MEDS: TRAMADOL HCL 50 MG TABLET PO PRN ×2 (01:17→20:40)
[2021-01-21 03:38] LABS: ABG BASE EXCESS -1.1 mmol/L (-2.0-3.0); ABG HCO3 24.1 mmol/L (21.0-28.0); ABG OXYGEN SATURATION 93.6 % (95.0-99.0); ABG PCO2 42 mmHg (32-45)
[2021-01-21 06:09] LABS: BASOPHILS % (AUTO) 0.2 % (0.0-5.0); EOSINOPHILS % (AUTO) 0.1 % (0.0-8.0); HEMATOCRIT 26.1 % (36-48); LYMPHOCYTES % (AUTO) 7.1 % (21.0-51.0); MEAN CORPUSCULAR HEMOGLOBIN 29.5 pg (27.0-33.0); MEAN CORPUSCULAR HGB CONC 33.3 g/dL (32.0-36.0); MEAN CORPUSCULAR VOLUME 88.5 fL (79-99); MONOCYTES % (AUTO) 7.5 % (3.0-13.0); NEUTROPHILS % (AUTO) 84.5 % (40.0-77.0); NUCLEATED RED BLOOD CELLS 0.2 % (0.0-0.19); PLATELET COUNT (AUTO) 207 K/uL (130-400); RED BLOOD CELL COUNT(AUTO) 2.95 MIL/uL (4.00-5.50); RED CELL DISTRIBUTION WIDTH 13.9 % (11.0-15.5); WHITE BLOOD COUNT (AUTO) 17.5 K/uL (4.8-10.8)
[2021-01-21 06:19] LABS: INR 0.98 (0.85-1.15); PROTHROMBIN TIME 10.7 SEC (9.6-11.6)
[2021-01-21 06:20] LABS: CREATININE 1.9 mg/dL (0.5-1.5); MAGNESIUM 2.4 mg/dL (1.80-2.40); PHOSPHORUS 4.7 mg/dL (2.5-4.9); POTASSIUM 4.4 mmol/L (3.5-5.1)
[2021-01-21 06:21] LABS: PARTIAL THROMBOPLASTIN TIME 21.1 SEC (26.3-35.5)
[2021-01-21] MEDS ORDERED: IOHEXOL 350 MG/ML 100ML INFUS..BTL IV ONE (09:11)
[2021-01-21] MEDS: FUROSEMIDE 20MG VIAL IV SCH ×2 (09:53→20:42)
[2021-01-21] MEDS: FAMOTIDINE 20MG VIAL IV SCH (09:53)
[2021-01-21] MEDS: DOXYCYCLINE 100MG+NS 250ML 250 ML IV SCH ×2 (09:54→20:40)
[2021-01-21] MEDS: ATORVASTATIN 40 MG TABLET PO SCH (10:52)
[2021-01-21] MEDS: ASPIRIN 325MG EC TAB PO SCH (10:52)
[2021-01-21] MEDS ORDERED: PHARMACY COMMUNICATION MISC SCH (20:30)
[2021-01-21] MEDS: INSULIN REGULAR, HUMAN 3ML 100 UNIT in 0.9%NACL 100ML 99 ML IV SCH ×2 (22:17)
[2021-01-21] MEDS: EPINEPHRINE PF 1MG AMP 10 MG in 0.9% NACL 250ML 240 ML IV PRN (22:18)
[2021-01-22] VITALS (33 sets, daily range): BP systolic 79–175; BP diastolic 36–152
[2021-01-22] MEDS: AZTREONAM 1 GM VIAL IVP SCH ×3 (03:09→17:20)
[2021-01-22 03:41] LABS: BASOPHILS % (AUTO) 0.3 % (0.0-5.0); EOSINOPHILS % (AUTO) 0.7 % (0.0-8.0); HEMATOCRIT 26.5 % (36-48); LYMPHOCYTES % (AUTO) 10.4 % (21.0-51.0); MEAN CORPUSCULAR HEMOGLOBIN 28.7 pg (27.0-33.0); MEAN CORPUSCULAR HGB CONC 32.5 g/dL (32.0-36.0); MEAN CORPUSCULAR VOLUME 88.3 fL (79-99); MONOCYTES % (AUTO) 7.9 % (3.0-13.0); NEUTROPHILS % (AUTO) 80.2 % (40.0-77.0); NUCLEATED RED BLOOD CELLS 0.3 % (0.0-0.19); PLATELET COUNT (AUTO) 158 K/uL (130-400); WHITE BLOOD COUNT (AUTO) 14.8 K/uL (4.8-10.8)
[2021-01-22 03:51] LABS: CREATININE 1.7 mg/dL (0.5-1.5); POTASSIUM 3.9 mmol/L (3.5-5.1)
[2021-01-22] MEDS ORDERED: 0.9%NACL 100ML 100 ML IV ONE (03:54)
[2021-01-22] MEDS: POTASSIUM CHLORIDE 20MEQ/100ML 100 ML IV PRN (04:06)
[2021-01-22] MEDS: TRAMADOL HCL 50 MG TABLET PO PRN ×2 (05:38→21:02)
[2021-01-22] MEDS: DOXYCYCLINE 100MG+NS 250ML 250 ML IV SCH ×2 (08:55→21:03)
[2021-01-22] MEDS: ASPIRIN 325MG EC TAB PO SCH (08:56)
[2021-01-22] MEDS: FAMOTIDINE 20MG VIAL IV SCH (08:56)
[2021-01-22] MEDS: ATORVASTATIN 40 MG TABLET PO SCH (08:56)
[2021-01-22] MEDS: FUROSEMIDE 20 MG TABLET PO SCH ×2 (08:56→17:20)
[2021-01-22] MEDS: METOPROLOL TARTRATE 25 MG TAB PO SCH ×2 (08:56→21:02)
[2021-01-22] MEDS: INSULIN HUMULIN R 100 UNIT/ML 3ML SQ SCH ×3 (11:30→21:18)
[2021-01-23] VITALS (42 sets, daily range): BP systolic 96–221; BP diastolic 55–107
[2021-01-23] MEDS ORDERED: 0.9%NACL 100ML 100 ML IV ONE (01:18)
[2021-01-23] MEDS: AZTREONAM 1 GM VIAL IVP SCH ×3 (01:20→17:06)
[2021-01-23 03:33] LABS: BASOPHILS % (AUTO) 0.3 % (0.0-5.0); EOSINOPHILS % (AUTO) 1.6 % (0.0-8.0); HEMATOCRIT 25.4 % (36-48); LYMPHOCYTES % (AUTO) 11.7 % (21.0-51.0); MEAN CORPUSCULAR HGB CONC 31.9 g/dL (32.0-36.0); NEUTROPHILS % (AUTO) 79.6 % (40.0-77.0); NUCLEATED RED BLOOD CELLS 0.3 % (0.0-0.19); PLATELET COUNT (AUTO) 173 K/uL (130-400); RED BLOOD CELL COUNT(AUTO) 2.79 MIL/uL (4.00-5.50); RED CELL DISTRIBUTION WIDTH 13.8 % (11.0-15.5); WHITE BLOOD COUNT (AUTO) 13.3 K/uL (4.8-10.8)
[2021-01-23 03:46] LABS: CREATININE 2.1 mg/dL (0.5-1.5); POTASSIUM 4.6 mmol/L (3.5-5.1)
[2021-01-23] MEDS: INSULIN HUMULIN R 100 UNIT/ML 3ML SQ SCH ×5 (07:52→21:00)
[2021-01-23] MEDS ORDERED: INSULIN GLARGINE 100 UNITS/ML 10 ML VIAL SQ ONE (08:00)
[2021-01-23] MEDS: DOXYCYCLINE 100MG+NS 250ML 250 ML IV SCH ×2 (08:04→21:14)
[2021-01-23] MEDS: FAMOTIDINE 20MG VIAL IV SCH (08:04)
[2021-01-23] MEDS: HEPARIN 5,000 UNIT VIAL SQ SCH ×2 (08:05→21:13)
[2021-01-23] MEDS: FUROSEMIDE 20 MG TABLET PO SCH ×2 (08:06→16:39)
[2021-01-23] MEDS: ATORVASTATIN 40 MG TABLET PO SCH (08:06)
[2021-01-23] MEDS: ASPIRIN 325MG EC TAB PO SCH (08:07)
[2021-01-23] MEDS: MIDODRINE HCL 5 MG TABLET PO SCH ×3 (08:49→21:13)
[2021-01-23] MEDS: LISINOPRIL 2.5 MG TABLET PO SCH (10:09)
[2021-01-23] MEDS: TRAMADOL HCL 50 MG TABLET PO PRN (12:03)
[2021-01-24] VITALS (17 sets, daily range): BP systolic 104–158; BP diastolic 52–87
[2021-01-24 04:09] LABS: BASOPHILS % (AUTO) 0.3 % (0.0-5.0); HEMATOCRIT 24.7 % (36-48); LYMPHOCYTES % (AUTO) 13.1 % (21.0-51.0); MEAN CORPUSCULAR HEMOGLOBIN 28.3 pg (27.0-33.0); MEAN CORPUSCULAR VOLUME 88.5 fL (79-99); MONOCYTES % (AUTO) 6.9 % (3.0-13.0); NUCLEATED RED BLOOD CELLS 0.6 % (0.0-0.19); PLATELET COUNT (AUTO) 183 K/uL (130-400); RED BLOOD CELL COUNT(AUTO) 2.79 MIL/uL (4.00-5.50); RED CELL DISTRIBUTION WIDTH 13.5 % (11.0-15.5); WHITE BLOOD COUNT (AUTO) 11.3 K/uL (4.8-10.8)
[2021-01-24] MEDS: AZTREONAM 1 GM VIAL IVP SCH ×3 (04:13→17:01)
[2021-01-24 04:33] LABS: CREATININE 2.1 mg/dL (0.5-1.5); POTASSIUM 3.9 mmol/L (3.5-5.1)
[2021-01-24] MEDS: INSULIN HUMULIN R 100 UNIT/ML 3ML SQ SCH ×7 (07:30→20:09)
[2021-01-24] MEDS: INSULIN GLARGINE 100 UNITS/ML 10 ML VIAL SQ SCH (08:00)
[2021-01-24] MEDS: MIDODRINE HCL 5 MG TABLET PO SCH ×3 (09:00→19:56)
[2021-01-24] MEDS: FAMOTIDINE 20MG VIAL IV SCH (09:00)
[2021-01-24] MEDS: LISINOPRIL 2.5 MG TABLET PO SCH (09:00)
[2021-01-24] MEDS: DOXYCYCLINE 100MG+NS 250ML 250 ML IV SCH ×2 (10:30→19:55)
[2021-01-24] MEDS: HEPARIN 5,000 UNIT VIAL SQ SCH ×2 (10:30→20:08)
[2021-01-24] MEDS: ATORVASTATIN 40 MG TABLET PO SCH (10:30)
[2021-01-24] MEDS ORDERED: ASPIRIN 81MG CHEW TAB ONE (10:39)
[2021-01-24] MEDS ORDERED: CLOPIDOGREL 75MG TAB ONE (10:43)
[2021-01-24] MEDS ORDERED: PHARMACY COMMUNICATION MISC SCH (11:15)
[2021-01-24] MEDS ORDERED: COMPOUND IV MISC 1 EACH IVSOLN MISC PRN (11:30)
[2021-01-24] MEDS: LEVETIRACETAM 250 MG in 0.9%NACL 100ML 100 ML IV SCH (13:19)
[2021-01-25] VITALS (8 sets, daily range): BP systolic 113–166; BP diastolic 68–93
[2021-01-25] MEDS: AZTREONAM 1 GM VIAL IVP SCH ×3 (03:08→16:39)
[2021-01-25 04:33] LABS: ABG BASE EXCESS -4.8 mmol/L (-2.0-3.0); ABG HCO3 18.7 mmol/L (21.0-28.0); ABG PCO2 31 mmHg (32-45)
[2021-01-25 05:09] LABS: HEMATOCRIT 24.4 % (36-48); MEAN CORPUSCULAR HGB CONC 32.8 g/dL (32.0-36.0); MEAN CORPUSCULAR VOLUME 88.4 fL (79-99); NUCLEATED RED BLOOD CELLS 0.5 % (0.0-0.19); RED BLOOD CELL COUNT(AUTO) 2.76 MIL/uL (4.00-5.50); RED CELL DISTRIBUTION WIDTH 13.5 % (11.0-15.5); WHITE BLOOD COUNT (AUTO) 9.2 K/uL (4.8-10.8)
[2021-01-25 05:23] LABS: CREATININE 1.7 mg/dL (0.5-1.5); POTASSIUM 3.8 mmol/L (3.5-5.1)
[2021-01-25] MEDS: INSULIN HUMULIN R 100 UNIT/ML 3ML SQ SCH ×7 (05:40→20:52)
[2021-01-25] MEDS: MIDODRINE HCL 5 MG TABLET PO SCH ×3 (09:00→21:00)
[2021-01-25] MEDS: DOXYCYCLINE 100MG+NS 250ML 250 ML IV SCH ×2 (09:41→20:35)
[2021-01-25] MEDS: INSULIN GLARGINE 100 UNITS/ML 10 ML VIAL SQ SCH (09:41)
[2021-01-25] MEDS: CLOPIDOGREL 75MG TAB PO SCH (09:42)
[2021-01-25] MEDS: HEPARIN 5,000 UNIT VIAL SQ SCH ×2 (09:42→20:38)
[2021-01-25] MEDS: ATORVASTATIN 40 MG TABLET PO SCH (09:42)
[2021-01-25] MEDS: FAMOTIDINE 20MG VIAL IV SCH (09:42)
[2021-01-25] MEDS: LISINOPRIL 2.5 MG TABLET PO SCH (09:43)
[2021-01-25] MEDS: ASPIRIN 81MG CHEW TAB PO SCH (09:43)
[2021-01-25] MEDS: LEVETIRACETAM 250 MG in 0.9%NACL 100ML 100 ML IV SCH ×4 (13:33→23:21)
[2021-01-25] MEDS: DOCUSATE SODIUM 100 MG CAP PO SCH (20:35)
[2021-01-26] MEDS: AZTREONAM 1 GM VIAL IVP SCH ×3 (01:11→16:33)
[2021-01-26 03:30] VITALS: BP 134/64
[2021-01-26] MEDS: INSULIN HUMULIN R 100 UNIT/ML 3ML SQ SCH ×8 (06:17→21:00)
[2021-01-26] MEDS: ASPIRIN 81MG CHEW TAB PO SCH (07:58)
[2021-01-26] MEDS: DOXYCYCLINE 100MG+NS 250ML 250 ML IV SCH ×2 (07:58→21:28)
[2021-01-26] MEDS: MIDODRINE HCL 5 MG TABLET PO SCH ×3 (07:59→21:00)
[2021-01-26] MEDS: ATORVASTATIN 40 MG TABLET PO SCH (07:59)
[2021-01-26] MEDS: DOCUSATE SODIUM 100 MG CAP PO SCH ×2 (07:59→21:28)
[2021-01-26] MEDS: FAMOTIDINE 20MG VIAL IV SCH (08:00)
[2021-01-26] MEDS ORDERED: INSULIN GLARGINE 100 UNITS/ML 10 ML VIAL SQ SCH (08:00)
[2021-01-26] MEDS: CLOPIDOGREL 75MG TAB PO SCH (08:00)
[2021-01-26] MEDS: HEPARIN 5,000 UNIT VIAL SQ SCH ×2 (08:01→21:30)
[2021-01-26 08:09] VITALS: BP 159/88
[2021-01-26] MEDS: LISINOPRIL 2.5 MG TABLET PO SCH (10:50)
[2021-01-26 11:58] VITALS: BP 153/75
[2021-01-26] MEDS: LEVETIRACETAM 250 MG in 0.9%NACL 100ML 100 ML IV SCH ×2 (13:27→23:54)
[2021-01-26 16:13] VITALS: BP 142/72
[2021-01-26 19:05] VITALS: BP 148/51
[2021-01-26 22:58] VITALS: BP 126/75
[2021-01-27] VITALS: BP 146/73
[2021-01-27] MEDS: AZTREONAM 1 GM VIAL IVP SCH ×3 (02:03→18:00)
[2021-01-27 03:47] VITALS: BP 159/75
[2021-01-27 05:31] LABS: BASOPHILS % (AUTO) 0.2 % (0.0-5.0); EOSINOPHILS % (AUTO) 8.3 % (0.0-8.0); HEMATOCRIT 25.6 % (36-48); LYMPHOCYTES % (AUTO) 18.2 % (21.0-51.0); MEAN CORPUSCULAR HEMOGLOBIN 28.2 pg (27.0-33.0); MEAN CORPUSCULAR HGB CONC 31.6 g/dL (32.0-36.0); MEAN CORPUSCULAR VOLUME 89.2 fL (79-99); MONOCYTES % (AUTO) 6.6 % (3.0-13.0); NEUTROPHILS % (AUTO) 65.6 % (40.0-77.0); NUCLEATED RED BLOOD CELLS 0.4 % (0.0-0.19); PLATELET COUNT (AUTO) 234 K/uL (130-400); RED BLOOD CELL COUNT(AUTO) 2.87 MIL/uL (4.00-5.50); RED CELL DISTRIBUTION WIDTH 13.3 % (11.0-15.5); WHITE BLOOD COUNT (AUTO) 9.3 K/uL (4.8-10.8)
[2021-01-27] MEDS: INSULIN HUMULIN R 100 UNIT/ML 3ML SQ SCH ×7 (05:46→20:17)
[2021-01-27 05:53] LABS: ALBUMIN 1.6 g/dL (3.5-5.0); BILIRUBIN,TOTAL 0.4 mg/dL (0.2-1.0); CREATININE 1.3 mg/dL (0.5-1.5); POTASSIUM 3.7 mmol/L (3.5-5.1); TOTAL PROTEIN, SERUM 6.3 g/dL (6.0-8.3)
[2021-01-27 08:00] VITALS: BP 162/86
[2021-01-27] MEDS ORDERED: INSULIN GLARGINE 100 UNITS/ML 10 ML VIAL SQ SCH (08:00)
[2021-01-27] MEDS: FAMOTIDINE 20MG VIAL IV SCH (08:46)
[2021-01-27] MEDS: CLOPIDOGREL 75MG TAB PO SCH (08:46)
[2021-01-27] MEDS: ASPIRIN 81MG CHEW TAB PO SCH (08:46)
[2021-01-27] MEDS: DOCUSATE SODIUM 100 MG CAP PO SCH ×2 (08:46→20:17)
[2021-01-27] MEDS: LISINOPRIL 2.5 MG TABLET PO SCH (08:47)
[2021-01-27] MEDS: HEPARIN 5,000 UNIT VIAL SQ SCH ×2 (08:48→20:17)
[2021-01-27] MEDS: DOXYCYCLINE 100MG+NS 250ML 250 ML IV SCH ×2 (08:50→20:17)
[2021-01-27] MEDS: ATORVASTATIN 40 MG TABLET PO SCH (08:50)
[2021-01-27 12:00] VITALS: BP 114/33
[2021-01-27 16:00] VITALS: BP 175/75
[2021-01-27] MEDS: LEVETIRACETAM 250 MG in 0.9%NACL 100ML 100 ML IV SCH ×2 (17:54→23:25)
[2021-01-27 20:04] VITALS: BP 92/59
[2021-01-28] VITALS: BP 146/73
[2021-01-28] MEDS: AZTREONAM 1 GM VIAL IVP SCH ×2 (02:00→09:21)
[2021-01-28 04:00] VITALS: BP 139/76
[2021-01-28 06:03] LABS: BASOPHILS % (AUTO) 0.1 % (0.0-5.0); EOSINOPHILS % (AUTO) 7.9 % (0.0-8.0); HEMATOCRIT 26.1 % (36-48); MEAN CORPUSCULAR HEMOGLOBIN 29.2 pg (27.0-33.0); MEAN CORPUSCULAR VOLUME 88.5 fL (79-99); MONOCYTES % (AUTO) 7.2 % (3.0-13.0); NEUTROPHILS % (AUTO) 68.6 % (40.0-77.0); PLATELET COUNT (AUTO) 224 K/uL (130-400); RED BLOOD CELL COUNT(AUTO) 2.95 MIL/uL (4.00-5.50); RED CELL DISTRIBUTION WIDTH 13.6 % (11.0-15.5); WHITE BLOOD COUNT (AUTO) 8.6 K/uL (4.8-10.8)
[2021-01-28 06:12] LABS: ALBUMIN 1.6 g/dL (3.5-5.0); BILIRUBIN,TOTAL 0.4 mg/dL (0.2-1.0); CREATININE 1.2 mg/dL (0.5-1.5); POTASSIUM 3.8 mmol/L (3.5-5.1); TOTAL PROTEIN, SERUM 6.1 g/dL (6.0-8.3)
[2021-01-28] MEDS: INSULIN HUMULIN R 100 UNIT/ML 3ML SQ SCH ×4 (07:30→11:18)
[2021-01-28] MEDS: FAMOTIDINE 20MG VIAL IV SCH (07:39)
[2021-01-28] MEDS: DOXYCYCLINE 100MG+NS 250ML 250 ML IV SCH (07:39)
[2021-01-28] MEDS: DOCUSATE SODIUM 100 MG CAP PO SCH (07:39)
[2021-01-28] MEDS: HEPARIN 5,000 UNIT VIAL SQ SCH (07:39)
[2021-01-28] MEDS: LISINOPRIL 2.5 MG TABLET PO SCH (07:39)
[2021-01-28] MEDS: ASPIRIN 81MG CHEW TAB PO SCH (07:39)
[2021-01-28] MEDS: ATORVASTATIN 40 MG TABLET PO SCH (07:39)
[2021-01-28] MEDS: CLOPIDOGREL 75MG TAB PO SCH (07:39)
[2021-01-28 08:00] VITALS: BP 142/78
[2021-01-28] MEDS ORDERED: INSULIN GLARGINE 100 UNITS/ML 10 ML VIAL SQ SCH ×2 (08:00)
[2021-01-28] MEDS: LEVETIRACETAM 250 MG in 0.9%NACL 100ML 100 ML IV SCH (11:18)
== END 2021-01-28 11:41 | disposition left against medical advice (07) | DRG 165 ==
LOC: EDH 05:22 → EDHIP 05:23 → 4CH 14:54 → 2AH 16:57 → 4CH 01-18 16:35 → 2CV 01-20 16:17 → 2CH 01-21 05:55 → 4CH 01-24 18:10
PROVIDERS: ADMIT Internal Medicine; ATTEND Internal Medicine
PROC: 4A023N7 Measurement of Cardiac Sampling and Pressure, Left Heart, Percutaneous Approach (ICD-10-PCS; 2021-01-17)
PROC: B2111ZZ Fluoroscopy of Multiple Coronary Arteries using Low Osmolar Contrast (ICD-10-PCS; 2021-01-17)
PROC: 0BH17EZ Insertion of Endotracheal Airway into Trachea, Via Natural or Artificial Opening (ICD-10-PCS; 2021-01-20)
PROC: 5A1935Z Respiratory Ventilation, Less than 24 Consecutive Hours (ICD-10-PCS; 2021-01-20)
PROC: 06BQ4ZZ Excision of Left Saphenous Vein, Percutaneous Endoscopic Approach (ICD-10-PCS; principal; 2021-01-20 14:12)
PROC: 021009W Bypass Coronary Artery, One Artery from Aorta with Autologous Venous Tissue, Open Approach (ICD-10-PCS; 2021-01-20 14:12)
PROC: 0210099 Bypass Coronary Artery, One Artery from Left Internal Mammary with Autologous Venous Tissue, Open Approach (ICD-10-PCS; 2021-01-20 14:12)
PROC: 30233N1 Transfusion of Nonautologous Red Blood Cells into Peripheral Vein, Percutaneous Approach (ICD-10-PCS; 2021-01-21)
DX: I21.4 Non-ST elevation (NSTEMI) myocardial infarction (principal); J96.01 Acute respiratory failure with hypoxia; I50.43 Acute on chronic combined systolic (congestive) and diastolic (congestive) heart failure; J18.9 Pneumonia, unspecified organism; I13.0 Hypertensive heart and chronic kidney disease with heart failure and stage 1 through stage 4 chronic kidney disease, or unspecified chronic kidney disease; E11.22 Type 2 diabetes mellitus with diabetic chronic kidney disease; E11.42 Type 2 diabetes mellitus with diabetic polyneuropathy; N17.9 Acute kidney failure, unspecified; N18.30 Chronic kidney disease, stage 3 unspecified; F14.10 Cocaine abuse, uncomplicated; Z88.1 Allergy status to other antibiotic agents; E11.65 Type 2 diabetes mellitus with hyperglycemia; I25.10 Atherosclerotic heart disease of native coronary artery without angina pectoris; E87.1 Hypo-osmolality and hyponatremia; I25.5 Ischemic cardiomyopathy; Z91.19 Patient's noncompliance with other medical treatment and regimen; Z82.49 Family history of ischemic heart disease and other diseases of the circulatory system; Z82.5 Family history of asthma and other chronic lower respiratory diseases; Z83.3 Family history of diabetes mellitus; Z82.3 Family history of stroke; Z82.0 Family history of epilepsy and other diseases of the nervous system; Z87.442 Personal history of urinary calculi; Z90.710 Acquired absence of both cervix and uterus; Z98.891 History of uterine scar from previous surgery; E66.01 Morbid (severe) obesity due to excess calories; Z68.41 Body mass index [BMI] 40.0-44.9, adult; Z79.4 Long term (current) use of insulin; Z90.49 Acquired absence of other specified parts of digestive tract; E11.319 Type 2 diabetes mellitus with unspecified diabetic retinopathy without macular edema; E78.00 Pure hypercholesterolemia, unspecified; G93.89 Other specified disorders of brain; Z79.899 Other long term (current) drug therapy; I67.841 Reversible cerebrovascular vasoconstriction syndrome; Z79.02 Long term (current) use of antithrombotics/antiplatelets; Z79.82 Long term (current) use of aspirin; Z20.822 Contact with and (suspected) exposure to COVID-19; Z88.0 Allergy status to penicillin
CPT/HCPCS: 36415; 36430; 36600; 70450; 70496; 70498; 71045; 71250; 74230; 76770; 80048; 80053; 80202; 80305; 81001; 82140; 82435; 82728; 82803; 82947; 82948; 83036; 83605; 83615; 83735; 83880; 84100; 84132; 84145; 84295; 84484; 85018; 85025; 85027; 85347; 85610; 85730; 86140; 86738; 86850; 86900; 86901; 86923; 87088; 87426; 87449; 92522; 92610; 92611; 93005; 93306; 93356; 93454; 93880; 94002; 94010; 94150; 94640; 97039; 99156; 99157; A7048; C1751; C1769; C1894; G0378; J0171; J1644; J1815; J1940; J1953; J2001; J2060; J2250; J2405; J2440; J2704; J2720; J3010; J3370; J3475; J3480; J3490; J7030; J7040; J7050; P9016; Q9967; U0003

== ENCOUNTER 2022-01-31 11:15 | Inpatient (IN) | payer MEDICAID ==
[~2022-01-31] VITALS: Ht 154.9 cm; Wt 103.0 kg
[~2022-01-31 11:15] MED LIST changes: -ACET325C6 PO; -AEC81 PO; -ATOR10 PO; +DOXY100V2 IV; -FENO48TA10 PO; +FLUT220HFA IH; +FURO20TA6 PO; -LISI1TAB53 PO; +MECL-160 PO; +OMEP20CA12 PO; -PREG75 PO; -SERT-439 PO
[2022-01-31 13:54] LABS: BASOPHILS % (AUTO) 0.2 % (0.0-5.0); HEMATOCRIT 29.7 % (36-48); LYMPHOCYTES % (AUTO) 4.6 % (21.0-51.0); MEAN CORPUSCULAR HEMOGLOBIN 29.2 pg (27.0-33.0); MEAN CORPUSCULAR VOLUME 91.4 fL (79-99); MONOCYTES % (AUTO) 3.1 % (3.0-13.0); NEUTROPHILS % (AUTO) 91.5 % (40.0-77.0); PLATELET COUNT (AUTO) 158 K/uL (130-400); RED BLOOD CELL COUNT(AUTO) 3.25 MIL/uL (4.00-5.50); RED CELL DISTRIBUTION WIDTH 16.1 % (11.0-15.5); WHITE BLOOD COUNT (AUTO) 21.9 K/uL (4.8-10.8)
[2022-01-31 14:05] LABS: CREATININE 2.3 mg/dL (0.5-1.5); POTASSIUM 4.5 mmol/L (3.5-5.1)
[2022-01-31 14:10] LABS: ALBUMIN 2.7 g/dL (3.5-5.0); BILIRUBIN,TOTAL 0.7 mg/dL (0.2-1.0); TOTAL PROTEIN, SERUM 7.1 g/dL (6.0-8.3)
[2022-01-31] MEDS ORDERED: 0.9%NACL 1000ML 1,000 ML IV ONE (14:30)
[2022-01-31 14:38] LABS: APPEARANCE,URINE Clear (CLEAR); BILIRUBIN,URINE Negative (NEGATIVE); COLOR,URINE Yellow (YELLOW); GLUCOSE, URINE (UA) Negative (NEGATIVE); KETONES,URINE Negative (NEGATIVE); LEUKOCYTE ESTERASE ,URINE Trace (NEGATIVE); NITRATE,URINE Negative (NEGATIVE); OCCULT BLOOD,URINE Negative (NEGATIVE); PH,URINE 7.5 (5.0-8.0); PROTEIN,URINE POS 2+ mg/dL (NEGATIVE); UROBILINOGEN,URINE 0.2 mg/dL (0.2-1.0)
[2022-01-31 14:47] LABS: AMPHET/METH SCREEN,URINE NEGATIVE (NEGATIVE); BARBITURATE SCREEN, URINE NEGATIVE (NEGATIVE); BENZODIAZEPINES SCREEN,URINE NEGATIVE (NEGATIVE); CANNABINOID SCREEN,URINE NEGATIVE (NEGATIVE); COCAINE SCREEN,URINE NEGATIVE (NEGATIVE); OPIATE SCREEN,URINE NEGATIVE (NEGATIVE); PHENCYCLIDINE SCREEN,URINE NEGATIVE (NEGATIVE)
[2022-01-31 14:50] LABS: BACTERIA,URINE Rare /HPF (None Seen); RBC,URINE 0-1 /HPF (0-1); SQUAMOUS EPITHELIAL CELL,UR Rare /HPF (0-2); WBC,URINE 0-1 /HPF (0-1)
[2022-01-31] MEDS ORDERED: CEFTRIAXONE 1G VIAL IVP ONE ×2 (15:30)
[2022-01-31 16:43] LABS: HEMOGLOBIN A1C 7.7 % (4.0-6.0)
[2022-01-31] MEDS ORDERED: NIFE30TA98 PO (16:49)
[2022-01-31] MEDS ORDERED: POTA10PI IV (16:49)
[2022-01-31] MEDS ORDERED: FOLI0.8T2 PO (16:49)
[2022-01-31] MEDS ORDERED: FERS325 PO (16:49)
[2022-01-31] MEDS ORDERED: METO50TA18 PO (16:49)
[2022-01-31] MEDS ORDERED: VITAD50000 PO (16:49)
[2022-01-31] MEDS ORDERED: ATOR20TA65 PO (16:49)
[2022-01-31] MEDS ORDERED: GABA-529 PO (16:49)
[2022-01-31] MEDS ORDERED: SERT-439 PO (16:49)
[2022-01-31] MEDS ORDERED: CLOP75TA32 PO (16:49)
[2022-01-31] MEDS ORDERED: ASPI-1197 PO (16:49)
[2022-01-31] MEDS ORDERED: MELA10TA7 PO (16:49)
[2022-01-31] MEDS ORDERED: HYDR-3422 PO (16:49)
[2022-01-31] MEDS ORDERED: PANT40GR PO (16:49)
[2022-01-31] MEDS ORDERED: ARIP15TA18 PO (16:49)
[2022-01-31 16:53] LABS: THYROID STIMULATING HORMONE 1.36 uIU/mL (0.36-3.74)
[2022-01-31] MEDS ORDERED: THIAMINE HCL 100 MG/ML 2ML VIAL IVP SCH (17:00)
[2022-01-31] MEDS ORDERED: PANTOPRAZOLE 40 MG TAB DR PO SCH (17:00)
[2022-01-31] MEDS ORDERED: ASPIRIN 81MG CHEW TAB PO SCH (20:45)
[2022-02-01 07:11] LABS: BASOPHILS % (AUTO) 0.5 % (0.0-5.0); EOSINOPHILS % (AUTO) 1.3 % (0.0-8.0); HEMATOCRIT 31.7 % (36-48); LYMPHOCYTES % (AUTO) 16.3 % (21.0-51.0); MEAN CORPUSCULAR HEMOGLOBIN 28.3 pg (27.0-33.0); MEAN CORPUSCULAR HGB CONC 30.3 g/dL (32.0-36.0); MEAN CORPUSCULAR VOLUME 93.5 fL (79-99); NEUTROPHILS % (AUTO) 75.3 % (40.0-77.0); PLATELET COUNT (AUTO) 156 K/uL (130-400); RED BLOOD CELL COUNT(AUTO) 3.39 MIL/uL (4.00-5.50); RED CELL DISTRIBUTION WIDTH 16.1 % (11.0-15.5); WHITE BLOOD COUNT (AUTO) 10.4 K/uL (4.8-10.8)
[2022-02-01 07:26] LABS: ALBUMIN 2.8 g/dL (3.5-5.0); BILIRUBIN,TOTAL 0.5 mg/dL (0.2-1.0); CREATININE 2.3 mg/dL (0.5-1.5); MAGNESIUM 1.3 mg/dL (1.80-2.40); POTASSIUM 4.4 mmol/L (3.5-5.1); TOTAL PROTEIN, SERUM 7.3 g/dL (6.0-8.3)
[2022-02-01] MEDS: ATORVASTATIN 20 MG TABLET PO SCH (08:15)
[2022-02-01] MEDS: FERROUS SULFATE 325 MG TABLET.DR PO SCH ×2 (08:15→19:42)
[2022-02-01] MEDS: ASPIRIN 81MG CHEW TAB PO SCH (08:15)
[2022-02-01] MEDS: METOPROLOL TARTRATE 50 MG TAB PO SCH ×2 (08:15→19:42)
[2022-02-01] MEDS: CLOPIDOGREL 75MG TAB PO SCH (08:16)
[2022-02-01] MEDS: PANTOPRAZOLE 40 MG TAB DR PO SCH (08:16)
[2022-02-01] MEDS: Vitamin B Complex/Vit C/Folic Acid PO SCH (08:16)
[2022-02-01] MEDS: SERTRALINE HCL 50 MG TABLET PO SCH (08:16)
[2022-02-01] MEDS: ARIPIPRAZOLE 5 MG TABLET PO SCH (08:46)
[2022-02-01] MEDS ORDERED: ONDANSETRON 4MG INJ ONE (08:57)
[2022-02-01] MEDS: ONDANSETRON 4MG INJ IVP PRN (08:57)
[2022-02-01] MEDS ORDERED: ERGOCALCIFEROL (VITAMIN D2) 50,000 UNIT CAPSULE PO SCH (09:00)
[2022-02-01] MEDS ORDERED: NON-FORMULARY MEDICATION 1 EACH (Pantoprazole Sodium 40 MG) PO SCH (09:00)
[2022-02-01] MEDS ORDERED: MAG/ALUM/SIMETH 30 ML UDCUP ONE (09:33)
[2022-02-01] MEDS: MAG/ALUM/SIMETH 30 ML UDCUP PO SCH (10:00)
[2022-02-01] MEDS: MAGNESIUM 2GM PREMIX 50ML 50 ML IV SCH (10:00)
[2022-02-01] MEDS ORDERED: VANCOMYCIN PROTOCOL PER PHARMACY IV SCH (13:00)
[2022-02-01] MEDS ORDERED: CEFTRIAXONE 1G VIAL IVP SCH (15:00)
[2022-02-01] MEDS ORDERED: PHARMACY COMMUNICATION MISC SCH ×2 (15:00→16:00)
[2022-02-01] MEDS: LORAZEPAM 0.5 MG TABLET PO SCH (15:01)
[2022-02-01] MEDS ORDERED: LORAZEPAM 2 MG/ML 1 ML VIAL ONE (15:10)
[2022-02-01] MEDS ORDERED: LORAZEPAM 2 MG/ML 1 ML VIAL IVP ONE (15:30)
[2022-02-01] MEDS ORDERED: VANCOMYCIN 1.5GM/NS 250ML IV SCH ×2 (16:00)
[2022-02-01] MEDS ORDERED: COMPOUND IV REFRIGERATED 1 EACH IVSOLN MISC PRN (16:30)
[2022-02-01 18:35] VITALS: BP 106/66
[2022-02-01] MEDS: **HM** MELATONIN 10MG PO SCH (19:46)
[2022-02-01 20:00] VITALS: BP 137/87
[2022-02-02] VITALS (7 sets, daily range): BP systolic 117–159; BP diastolic 54–90
[2022-02-02] MEDS: ACETAMINOPHEN WITH CODEINE 1 TAB TAB PO PRN ×3 (01:52→20:04)
[2022-02-02] MEDS: HYDROXYZINE 25 MG TABLET PO PRN ×2 (01:52→19:48)
[2022-02-02] MEDS: MAGNESIUM 2GM PREMIX 50ML 50 ML IV SCH (04:47)
[2022-02-02] MEDS: ONDANSETRON 4MG INJ IVP PRN ×2 (05:10→19:48)
[2022-02-02] MEDS: METOPROLOL TARTRATE 50 MG TAB PO SCH ×2 (09:28→19:49)
[2022-02-02] MEDS: PANTOPRAZOLE 40 MG TAB DR PO SCH (09:28)
[2022-02-02] MEDS: ATORVASTATIN 20 MG TABLET PO SCH (09:28)
[2022-02-02] MEDS: FERROUS SULFATE 325 MG TABLET.DR PO SCH ×2 (09:28→19:48)
[2022-02-02] MEDS: ARIPIPRAZOLE 5 MG TABLET PO SCH (09:29)
[2022-02-02] MEDS: ASPIRIN 81MG CHEW TAB PO SCH (09:29)
[2022-02-02] MEDS: CLOPIDOGREL 75MG TAB PO SCH (09:30)
[2022-02-02] MEDS: SERTRALINE HCL 50 MG TABLET PO SCH (09:31)
[2022-02-02] MEDS: Vitamin B Complex/Vit C/Folic Acid PO SCH (09:31)
[2022-02-02] MEDS: LORAZEPAM 0.5 MG TABLET PO SCH ×2 (10:00→14:39)
[2022-02-02] MEDS: MAG/ALUM/SIMETH 30 ML UDCUP PO SCH (10:00)
[2022-02-02] MEDS ORDERED: VANCOMYCIN 1G 1.5 GM in 0.9% NACL 250ML 250 ML IV SCH (20:00)
[2022-02-02] MEDS: **HM** MELATONIN 10MG PO SCH (21:00)
[2022-02-02] MEDS ORDERED: HYDROMORPHONE 0.5 MG SYG (0.5MG/0.5ML) IVP ONE (22:00)
[2022-02-03] MEDS: ACETAMINOPHEN WITH CODEINE 1 TAB TAB PO PRN ×2 (02:44→08:39)
[2022-02-03 03:31] VITALS: BP 129/73
[2022-02-03 04:16] LABS: HEMATOCRIT 31.5 % (36-48); MEAN CORPUSCULAR HEMOGLOBIN 28.2 pg (27.0-33.0); MEAN CORPUSCULAR HGB CONC 30.2 g/dL (32.0-36.0); MEAN CORPUSCULAR VOLUME 93.5 fL (79-99); RED BLOOD CELL COUNT(AUTO) 3.37 MIL/uL (4.00-5.50); RED CELL DISTRIBUTION WIDTH 15.5 % (11.0-15.5); WHITE BLOOD COUNT (AUTO) 7.2 K/uL (4.8-10.8)
[2022-02-03 04:39] LABS: MAGNESIUM 1.7 mg/dL (1.80-2.40); POTASSIUM 4.7 mmol/L (3.5-5.1)
[2022-02-03] MEDS: MAGNESIUM 2GM PREMIX 50ML 50 ML IV SCH (05:39)
[2022-02-03 08:18] VITALS: BP 124/64
[2022-02-03] MEDS: ARIPIPRAZOLE 5 MG TABLET PO SCH (08:35)
[2022-02-03] MEDS: ASPIRIN 81MG CHEW TAB PO SCH (08:35)
[2022-02-03] MEDS: SERTRALINE HCL 50 MG TABLET PO SCH (08:35)
[2022-02-03] MEDS: ATORVASTATIN 20 MG TABLET PO SCH (08:35)
[2022-02-03] MEDS: FERROUS SULFATE 325 MG TABLET.DR PO SCH (08:35)
[2022-02-03] MEDS: METOPROLOL TARTRATE 50 MG TAB PO SCH (08:35)
[2022-02-03] MEDS: Vitamin B Complex/Vit C/Folic Acid PO SCH (08:35)
[2022-02-03] MEDS: CLOPIDOGREL 75MG TAB PO SCH (08:36)
[2022-02-03] MEDS: PANTOPRAZOLE 40 MG TAB DR PO SCH (08:36)
[2022-02-03] MEDS: MAG/ALUM/SIMETH 30 ML UDCUP PO SCH (10:00)
[2022-02-03 11:13] VITALS: BP 139/94
== END 2022-02-03 14:47 | disposition home or self-care (01) | DRG 45 ==
LOC: EDH 11:15 → EDHIP 16:51 → 4BH 02-01 18:22
PROVIDERS: ADMIT Internal Medicine; ATTEND Internal Medicine
DX: I63.9 Cerebral infarction, unspecified (principal); G93.49 Other encephalopathy; N17.9 Acute kidney failure, unspecified; I13.0 Hypertensive heart and chronic kidney disease with heart failure and stage 1 through stage 4 chronic kidney disease, or unspecified chronic kidney disease; I24.8 Other forms of acute ischemic heart disease; I50.9 Heart failure, unspecified; E10.22 Type 1 diabetes mellitus with diabetic chronic kidney disease; D72.829 Elevated white blood cell count, unspecified; E66.9 Obesity, unspecified; E78.00 Pure hypercholesterolemia, unspecified; E78.5 Hyperlipidemia, unspecified; F14.10 Cocaine abuse, uncomplicated; G51.0 Bell's palsy; I25.10 Atherosclerotic heart disease of native coronary artery without angina pectoris; N18.4 Chronic kidney disease, stage 4 (severe); Z20.822 Contact with and (suspected) exposure to COVID-19; Z88.0 Allergy status to penicillin; Z88.1 Allergy status to other antibiotic agents; Z95.1 Presence of aortocoronary bypass graft; Z82.3 Family history of stroke; Z82.49 Family history of ischemic heart disease and other diseases of the circulatory system; Z82.5 Family history of asthma and other chronic lower respiratory diseases; Z83.3 Family history of diabetes mellitus; Z86.73 Personal history of transient ischemic attack (TIA), and cerebral infarction without residual deficits; Z82.0 Family history of epilepsy and other diseases of the nervous system; R53.81 Other malaise; E86.0 Dehydration; Z68.41 Body mass index [BMI] 40.0-44.9, adult
CPT/HCPCS: 36415; 70450; 70551; 71045; 74176; 80048; 80053; 80061; 80305; 81001; 81025; 82550; 82948; 83036; 83605; 83690; 83735; 83874; 83880; 84145; 84443; 84484; 84703; 85025; 85027; 85651; 86140; 87040; 87046; 87088; 87177; 87324; 87507; 87635; 87804; 92610; 93005; 93970; 96374; 97039; C9803; G0378; J0696; J1170; J2060; J2405; J3370; J3411; J3475; J3490; J7030; J7050

== ENCOUNTER 2022-03-04 13:29 | Emergency (ER) | payer MEDICAID ==
[~2022-03-04] VITALS: Ht 152.4 cm; Wt 127.5 kg
[~2022-03-04 13:29] MED LIST changes: +ARIP15TA18 PO; +ASPI-1197 PO; +ATOR20TA65 PO; +CLOP75TA32 PO; -DOXY100V2 IV; +FERS325 PO; -FLUT220HFA IH; +FOLI0.8T2 PO; +GABA-529 PO; +HYDR-3422 PO; -INSU100I35 SQ; -MECL-160 PO; +MELA10TA7 PO; +METO50TA18 PO; +NIFE30TA98 PO; -OMEP20CA12 PO; +PANT40GR PO; +SERT-439 PO; +VITAD50000 PO
[2022-03-04] MEDS ORDERED: HYDROCODONE/ACETAMINOPHEN 5/325 MG TAB PO ONE (14:00)
[2022-03-04] MEDS ORDERED: ONDANSETRON 4MG INJ IVP ONE (14:00)
[2022-03-04 14:03] LABS: INFLUENZA TYPE A NEGATIVE FOR TYPE A (NEG); INFLUENZA TYPE B NEGATIVE FOR TYPE B (NEG)
[2022-03-04 14:17] LABS: BASOPHILS % (AUTO) 0.3 % (0.0-5.0); EOSINOPHILS % (AUTO) 0.7 % (0.0-8.0); HEMATOCRIT 36.9 % (36-48); LYMPHOCYTES % (AUTO) 9.1 % (21.0-51.0); MEAN CORPUSCULAR HGB CONC 31.7 g/dL (32.0-36.0); MEAN CORPUSCULAR VOLUME 91.3 fL (79-99); MONOCYTES % (AUTO) 5.9 % (3.0-13.0); NEUTROPHILS % (AUTO) 83.6 % (40.0-77.0); PLATELET COUNT (AUTO) 174 K/uL (130-400); RED BLOOD CELL COUNT(AUTO) 4.04 MIL/uL (4.00-5.50); RED CELL DISTRIBUTION WIDTH 15.7 % (11.0-15.5); WHITE BLOOD COUNT (AUTO) 7.3 K/uL (4.8-10.8)
[2022-03-04 14:31] LABS: CREATININE 4.3 mg/dL (0.5-1.5); POTASSIUM 4.5 mmol/L (3.5-5.1)
[2022-03-04 14:43] LABS: BILIRUBIN,TOTAL 0.6 mg/dL (0.2-1.0); TOTAL PROTEIN, SERUM 7.5 g/dL (6.0-8.3)
[2022-03-04 17:11] VITALS: BP 135/74
== END 2022-03-04 17:15 | disposition home or self-care (01) ==
LOC: EDH 13:29
DX: R18.8 Other ascites (principal); R10.9 Unspecified abdominal pain; E87.70 Fluid overload, unspecified; I13.2 Hypertensive heart and chronic kidney disease with heart failure and with stage 5 chronic kidney disease, or end stage renal disease; E11.22 Type 2 diabetes mellitus with diabetic chronic kidney disease; N18.6 End stage renal disease; I50.84 End stage heart failure; I25.10 Atherosclerotic heart disease of native coronary artery without angina pectoris; Z20.822 Contact with and (suspected) exposure to COVID-19; Z79.899 Other long term (current) drug therapy; Z99.2 Dependence on renal dialysis
CPT/HCPCS: 36415; 71045; 74176; 80053; 83605; 83880; 84484; 85025; 87635; 87804 ×2; 93005 ×2; 96374; 99285; C9803; J2405

== ENCOUNTER 2022-03-06 13:10 | Emergency (ER) | payer MEDICAID ==
[~2022-03-06] VITALS: Ht 152.4 cm; Wt 63.5 kg
[2022-03-06] MEDS ORDERED: CLINDAMYCIN IVPB 600MG/50ML 50 ML IV SCH (13:30)
[2022-03-06] MEDS ORDERED: TETANUS/DIPHTHERIA TOXOID [ADULT] 0.5 ML VIAL IM ONE (13:30)
[2022-03-06 13:52] LABS: BASOPHILS % (AUTO) 0.4 % (0.0-5.0); EOSINOPHILS % (AUTO) 1.7 % (0.0-8.0); HEMATOCRIT 36.1 % (36-48); LYMPHOCYTES % (AUTO) 13.3 % (21.0-51.0); MEAN CORPUSCULAR HGB CONC 31.3 g/dL (32.0-36.0); MEAN CORPUSCULAR VOLUME 89.6 fL (79-99); MONOCYTES % (AUTO) 10.8 % (3.0-13.0); NEUTROPHILS % (AUTO) 73.3 % (40.0-77.0); PLATELET COUNT (AUTO) 184 K/uL (130-400); RED BLOOD CELL COUNT(AUTO) 4.03 MIL/uL (4.00-5.50); RED CELL DISTRIBUTION WIDTH 15.6 % (11.0-15.5); WHITE BLOOD COUNT (AUTO) 7.8 K/uL (4.8-10.8)
[2022-03-06] MEDS ORDERED: MORPHINE 2 MG SYG ONE (14:17)
[2022-03-06] MEDS ORDERED: ONDANSETRON 4MG INJ ONE (14:17)
[2022-03-06] MEDS ORDERED: INSULIN HUMULIN R 100 UNIT/ML 3ML ONE (14:18)
[2022-03-06 14:29] LABS: B-TYPE NATRIURETIC PEPTIDE 2210 pg/mL (0-100)
[2022-03-06] MEDS ORDERED: MORPHINE 2 MG SYG IVP ONE (14:30)
[2022-03-06] MEDS ORDERED: INSULIN HUMULIN R 100 UNIT/ML 3ML SQ ONE (14:30)
[2022-03-06] MEDS ORDERED: ONDANSETRON 4MG INJ IVP ONE (14:30)
[2022-03-06 15:17] LABS: ALBUMIN 2.9 g/dL (3.5-5.0); BILIRUBIN,TOTAL 0.7 mg/dL (0.2-1.0); CREATININE 2.8 mg/dL (0.5-1.5); POTASSIUM 3.6 mmol/L (3.5-5.1); TOTAL PROTEIN, SERUM 7.4 g/dL (6.0-8.3)
[2022-03-06 15:48] VITALS: BP 144/78
[2022-03-06] MEDS ORDERED: CLIN-141 PO (16:08)
[2022-03-06] MEDS ORDERED: DICY20TA2 PO (16:08)
== END 2022-03-06 16:58 | disposition home or self-care (01) ==
LOC: EDH 13:10
DX: S60.414A Abrasion of right ring finger, initial encounter (principal); L03.115 Cellulitis of right lower limb; R10.9 Unspecified abdominal pain; I12.0 Hypertensive chronic kidney disease with stage 5 chronic kidney disease or end stage renal disease; E11.22 Type 2 diabetes mellitus with diabetic chronic kidney disease; M79.661 Pain in right lower leg; N18.6 End stage renal disease; F41.9 Anxiety disorder, unspecified; Z99.2 Dependence on renal dialysis; Z88.1 Allergy status to other antibiotic agents; Z88.0 Allergy status to penicillin; Z79.82 Long term (current) use of aspirin; Z79.899 Other long term (current) drug therapy; X58.XXXA Exposure to other specified factors, initial encounter; Y93.89 Activity, other specified; Y92.89 Other specified places as the place of occurrence of the external cause; Y99.8 Other external cause status
CPT/HCPCS: 36415; 71045; 74176; 80053; 82948; 83880; 84484; 85025; 90471; 90714; 93971; 96365; 96372; 96375; 99285; J1815; J2405; J3490

== ENCOUNTER 2022-03-07 16:03 | Emergency (ER) | payer MEDICAID ==
[~2022-03-07 16:03] MED LIST changes: +CLIN-141 PO; +DICY20TA2 PO
[2022-03-07] MEDS ORDERED: DICYCLOMINE 20MG (10MG/ML) AMP IM STA (16:24)
[2022-03-07] MEDS ORDERED: HYDROCODONE/ACETAMINOPHEN 5/325 MG TAB PO ONE (16:30)
[2022-03-07 16:31] LABS: BASOPHILS % (AUTO) 0.4 % (0.0-5.0); EOSINOPHILS % (AUTO) 1.7 % (0.0-8.0); LYMPHOCYTES % (AUTO) 12.5 % (21.0-51.0); MEAN CORPUSCULAR HEMOGLOBIN 28.3 pg (27.0-33.0); MEAN CORPUSCULAR HGB CONC 31.4 g/dL (32.0-36.0); MEAN CORPUSCULAR VOLUME 90.2 fL (79-99); MONOCYTES % (AUTO) 8.7 % (3.0-13.0); NEUTROPHILS % (AUTO) 76.4 % (40.0-77.0); PLATELET COUNT (AUTO) 195 K/uL (130-400); RED BLOOD CELL COUNT(AUTO) 3.99 MIL/uL (4.00-5.50); WHITE BLOOD COUNT (AUTO) 6.9 K/uL (4.8-10.8)
[2022-03-07 16:43] LABS: CREATININE 2.2 mg/dL (0.5-1.5); POTASSIUM 3.9 mmol/L (3.5-5.1)
[2022-03-07 16:47] LABS: ALBUMIN 2.7 g/dL (3.5-5.0); BILIRUBIN,TOTAL 0.7 mg/dL (0.2-1.0); TOTAL PROTEIN, SERUM 7.2 g/dL (6.0-8.3)
[2022-03-07 17:23] VITALS: BP 136/68
== END 2022-03-07 17:42 | disposition home or self-care (01) ==
LOC: EDH 16:03
DX: R10.30 Lower abdominal pain, unspecified (principal); I12.0 Hypertensive chronic kidney disease with stage 5 chronic kidney disease or end stage renal disease; E11.22 Type 2 diabetes mellitus with diabetic chronic kidney disease; N18.6 End stage renal disease; I25.10 Atherosclerotic heart disease of native coronary artery without angina pectoris; E78.00 Pure hypercholesterolemia, unspecified; Z99.2 Dependence on renal dialysis; Z88.0 Allergy status to penicillin; Z88.1 Allergy status to other antibiotic agents; Z79.899 Other long term (current) drug therapy; Z79.82 Long term (current) use of aspirin
CPT/HCPCS: 36415; 80053; 83690; 84484; 85025; 96372; 99283; J0500

== ENCOUNTER 2022-04-03 22:58 | Emergency (ER) | payer MEDICAID ==
[2022-04-04] MEDS ORDERED: ONDANSETRON 4MG INJ IVP ONE
[2022-04-04] MEDS ORDERED: MORPHINE 2 MG SYG IVP ONE
[2022-04-04 00:46] LABS: BASOPHILS % (AUTO) 0.4 % (0.0-5.0); EOSINOPHILS % (AUTO) 1.6 % (0.0-8.0); HEMATOCRIT 41.4 % (36-48); LYMPHOCYTES % (AUTO) 29.6 % (21.0-51.0); MEAN CORPUSCULAR HGB CONC 32.4 g/dL (32.0-36.0); MEAN CORPUSCULAR VOLUME 86.6 fL (79-99); MONOCYTES % (AUTO) 9.6 % (3.0-13.0); NEUTROPHILS % (AUTO) 58.3 % (40.0-77.0); PLATELET COUNT (AUTO) 242 K/uL (130-400); RED BLOOD CELL COUNT(AUTO) 4.78 MIL/uL (4.00-5.50); RED CELL DISTRIBUTION WIDTH 13.7 % (11.0-15.5); WHITE BLOOD COUNT (AUTO) 9.2 K/uL (4.8-10.8)
[2022-04-04 00:57] LABS: CREATININE 2.3 mg/dL (0.5-1.5); POTASSIUM 3.8 mmol/L (3.5-5.1)
[2022-04-04 01:02] LABS: ALBUMIN 2.9 g/dL (3.5-5.0); BILIRUBIN,TOTAL 0.2 mg/dL (0.2-1.0); TOTAL PROTEIN, SERUM 8.1 g/dL (6.0-8.3)
[2022-04-04 02:27] LABS: APPEARANCE,URINE Clear (CLEAR); BILIRUBIN,URINE Negative (NEGATIVE); COLOR,URINE Yellow (YELLOW); GLUCOSE, URINE (UA) Negative (NEGATIVE); KETONES,URINE Negative (NEGATIVE); LEUKOCYTE ESTERASE ,URINE Trace (NEGATIVE); NITRATE,URINE Negative (NEGATIVE); OCCULT BLOOD,URINE Negative (NEGATIVE); PH,URINE 5.5 (5.0-8.0); PROTEIN,URINE Trace mg/dL (NEGATIVE); UROBILINOGEN,URINE 0.2 mg/dL (0.2-1.0)
[2022-04-04 02:43] LABS: BACTERIA,URINE None Seen /HPF (None Seen); RBC,URINE 0-1 /HPF (0-1); SQUAMOUS EPITHELIAL CELL,UR Few /HPF (0-2)
[2022-04-04 03:09] VITALS: BP 119/55
== END 2022-04-04 03:35 | disposition home or self-care (01) ==
LOC: EDH 22:58
DX: K59.00 Constipation, unspecified (principal); I12.0 Hypertensive chronic kidney disease with stage 5 chronic kidney disease or end stage renal disease; E11.22 Type 2 diabetes mellitus with diabetic chronic kidney disease; N18.6 End stage renal disease; I25.10 Atherosclerotic heart disease of native coronary artery without angina pectoris; E78.00 Pure hypercholesterolemia, unspecified; Z88.0 Allergy status to penicillin; Z88.1 Allergy status to other antibiotic agents; Z99.2 Dependence on renal dialysis; Z79.82 Long term (current) use of aspirin; Z79.899 Other long term (current) drug therapy
CPT/HCPCS: 36415; 74176; 80053; 81001; 83690; 84703; 85025; 96374; 96375; 99284; J2405

== ENCOUNTER → 2022-07-24 | Outpatient (CLI) | payer MEDICAID ==
[~2022-07-24] MED LIST changes: -CLIN-141 PO; -DICY20TA2 PO; -FURO20TA6 PO; -GABA-529 PO; -HYDR-3422 PO; +LIDOCAINE HCL 4% LTA SOL 4 ML VIAL TP ONE; +MELA10TA20 PO; -MELA10TA7 PO; -NIFE30TA98 PO; -PANT40GR PO; -SERT-439 PO; -VITAD50000 PO
== END | disposition home or self-care (01) ==
LOC: WHH 10:05
PROVIDERS: ATTEND Family Medicine
DX: T81.89XA Other complications of procedures, not elsewhere classified, initial encounter (principal); S61.502A Unspecified open wound of left wrist, initial encounter; S81.001A Unspecified open wound, right knee, initial encounter; E11.622 Type 2 diabetes mellitus with other skin ulcer; L98.492 Non-pressure chronic ulcer of skin of other sites with fat layer exposed; E11.65 Type 2 diabetes mellitus with hyperglycemia; E11.10 Type 2 diabetes mellitus with ketoacidosis without coma; E11.22 Type 2 diabetes mellitus with diabetic chronic kidney disease; I12.0 Hypertensive chronic kidney disease with stage 5 chronic kidney disease or end stage renal disease; N18.6 End stage renal disease; E78.5 Hyperlipidemia, unspecified; E66.9 Obesity, unspecified; F20.9 Schizophrenia, unspecified; F41.9 Anxiety disorder, unspecified; F32.A Depression, unspecified; Z68.31 Body mass index [BMI] 31.0-31.9, adult; Z95.1 Presence of aortocoronary bypass graft; Z79.899 Other long term (current) drug therapy; X58.XXXA Exposure to other specified factors, initial encounter; Y93.89 Activity, other specified; Y92.89 Other specified places as the place of occurrence of the external cause; Y99.8 Other external cause status; Y92.238 Other place in hospital as the place of occurrence of the external cause; Y83.8 Other surgical procedures as the cause of abnormal reaction of the patient, or of later complication, without mention of misadventure at the time of the procedure
CPT/HCPCS: 11042; 82948; 11045; A6248; A4450

== ENCOUNTER → 2022-07-31 | Outpatient (CLI) | payer MEDICAID | END | disposition home or self-care (01) | LOC: WHH 10:28 | PROVIDERS: ATTEND Family Medicine | DX: T81.89XD Other complications of procedures, not elsewhere classified, subsequent encounter (principal); S61.502D Unspecified open wound of left wrist, subsequent encounter; S81.001D Unspecified open wound, right knee, subsequent encounter; E11.622 Type 2 diabetes mellitus with other skin ulcer; L98.492 Non-pressure chronic ulcer of skin of other sites with fat layer exposed; E11.65 Type 2 diabetes mellitus with hyperglycemia; E11.10 Type 2 diabetes mellitus with ketoacidosis without coma; E11.22 Type 2 diabetes mellitus with diabetic chronic kidney disease; I12.0 Hypertensive chronic kidney disease with stage 5 chronic kidney disease or end stage renal disease; N18.6 End stage renal disease; E78.5 Hyperlipidemia, unspecified; E66.9 Obesity, unspecified; F20.9 Schizophrenia, unspecified; F41.9 Anxiety disorder, unspecified; F32.A Depression, unspecified; Z68.31 Body mass index [BMI] 31.0-31.9, adult; Z95.1 Presence of aortocoronary bypass graft; Z79.899 Other long term (current) drug therapy; X58.XXXD Exposure to other specified factors, subsequent encounter; Y83.8 Other surgical procedures as the cause of abnormal reaction of the patient, or of later complication, without mention of misadventure at the time of the procedure | CPT/HCPCS: 11042; 82948; 11045; A6248 ==

== ENCOUNTER → 2022-08-07 | Outpatient (CLI) | payer MEDICAID | END | disposition home or self-care (01) | LOC: WHH 10:41 | PROVIDERS: ATTEND Family Medicine | DX: T81.89XD Other complications of procedures, not elsewhere classified, subsequent encounter (principal); S61.502D Unspecified open wound of left wrist, subsequent encounter; S81.001D Unspecified open wound, right knee, subsequent encounter; E11.622 Type 2 diabetes mellitus with other skin ulcer; L98.492 Non-pressure chronic ulcer of skin of other sites with fat layer exposed; E11.65 Type 2 diabetes mellitus with hyperglycemia; E11.10 Type 2 diabetes mellitus with ketoacidosis without coma; E11.22 Type 2 diabetes mellitus with diabetic chronic kidney disease; I12.0 Hypertensive chronic kidney disease with stage 5 chronic kidney disease or end stage renal disease; N18.6 End stage renal disease; E78.5 Hyperlipidemia, unspecified; E66.9 Obesity, unspecified; F20.9 Schizophrenia, unspecified; F41.9 Anxiety disorder, unspecified; F32.A Depression, unspecified; Z68.31 Body mass index [BMI] 31.0-31.9, adult; Z95.1 Presence of aortocoronary bypass graft; Z79.899 Other long term (current) drug therapy; X58.XXXD Exposure to other specified factors, subsequent encounter; Y83.8 Other surgical procedures as the cause of abnormal reaction of the patient, or of later complication, without mention of misadventure at the time of the procedure | CPT/HCPCS: 11042; 11045 ==

== ENCOUNTER → 2022-08-14 | Outpatient (CLI) | payer MEDICAID | END | disposition home or self-care (01) | LOC: WHH 09:23 | PROVIDERS: ATTEND Family Medicine | DX: T81.89XD Other complications of procedures, not elsewhere classified, subsequent encounter (principal); S61.502D Unspecified open wound of left wrist, subsequent encounter; S81.001D Unspecified open wound, right knee, subsequent encounter; E11.622 Type 2 diabetes mellitus with other skin ulcer; L98.492 Non-pressure chronic ulcer of skin of other sites with fat layer exposed; E11.65 Type 2 diabetes mellitus with hyperglycemia; E11.10 Type 2 diabetes mellitus with ketoacidosis without coma; E11.22 Type 2 diabetes mellitus with diabetic chronic kidney disease; I12.0 Hypertensive chronic kidney disease with stage 5 chronic kidney disease or end stage renal disease; N18.6 End stage renal disease; E78.5 Hyperlipidemia, unspecified; E66.9 Obesity, unspecified; F20.9 Schizophrenia, unspecified; F41.9 Anxiety disorder, unspecified; F32.A Depression, unspecified; Z95.1 Presence of aortocoronary bypass graft; Z79.899 Other long term (current) drug therapy; X58.XXXD Exposure to other specified factors, subsequent encounter; Y83.8 Other surgical procedures as the cause of abnormal reaction of the patient, or of later complication, without mention of misadventure at the time of the procedure | CPT/HCPCS: 11042; 11045 ==

== ENCOUNTER → 2022-08-21 | Outpatient (CLI) | payer MEDICAID | END | disposition home or self-care (01) | LOC: WHH 09:46 | PROVIDERS: ATTEND Family Medicine | DX: T81.89XD Other complications of procedures, not elsewhere classified, subsequent encounter (principal); S61.502D Unspecified open wound of left wrist, subsequent encounter; S81.001D Unspecified open wound, right knee, subsequent encounter; E11.65 Type 2 diabetes mellitus with hyperglycemia; E11.10 Type 2 diabetes mellitus with ketoacidosis without coma; E11.22 Type 2 diabetes mellitus with diabetic chronic kidney disease; I12.0 Hypertensive chronic kidney disease with stage 5 chronic kidney disease or end stage renal disease; N18.6 End stage renal disease; L03.115 Cellulitis of right lower limb; E78.5 Hyperlipidemia, unspecified; E66.9 Obesity, unspecified; F20.9 Schizophrenia, unspecified; F41.9 Anxiety disorder, unspecified; F32.A Depression, unspecified; Z95.1 Presence of aortocoronary bypass graft; Z79.899 Other long term (current) drug therapy; Z90.49 Acquired absence of other specified parts of digestive tract; X58.XXXD Exposure to other specified factors, subsequent encounter; Y83.8 Other surgical procedures as the cause of abnormal reaction of the patient, or of later complication, without mention of misadventure at the time of the procedure | CPT/HCPCS: 99214; A6248; A4450 ==

== ENCOUNTER → 2022-08-28 | Outpatient (CLI) | payer MEDICAID ==
[~2022-08-28] MED LIST changes: +ARIP15TA2 PO; +CLOP-31 PO; +DOXY100C5 PO; +FURO20TA4 PO; +GABA100C PO; +MIDO5 PO; +ONDA22I PO; +TRAZ-185 PO; +TRAZ-187 PO; +VENL75 PO; +VITA D PO
== END | disposition home or self-care (01) ==
LOC: WHH 10:42
PROVIDERS: ATTEND Family Medicine
DX: T81.89XD Other complications of procedures, not elsewhere classified, subsequent encounter (principal); E11.65 Type 2 diabetes mellitus with hyperglycemia; E11.10 Type 2 diabetes mellitus with ketoacidosis without coma; E11.22 Type 2 diabetes mellitus with diabetic chronic kidney disease; I12.0 Hypertensive chronic kidney disease with stage 5 chronic kidney disease or end stage renal disease; N18.6 End stage renal disease; L03.115 Cellulitis of right lower limb; E78.5 Hyperlipidemia, unspecified; E66.9 Obesity, unspecified; F20.9 Schizophrenia, unspecified; F41.9 Anxiety disorder, unspecified; F32.A Depression, unspecified; Z68.31 Body mass index [BMI] 31.0-31.9, adult; Z95.1 Presence of aortocoronary bypass graft; Z79.899 Other long term (current) drug therapy; Z90.49 Acquired absence of other specified parts of digestive tract; Y83.8 Other surgical procedures as the cause of abnormal reaction of the patient, or of later complication, without mention of misadventure at the time of the procedure
CPT/HCPCS: 87070; 87077; 87186; 99214; G0463

== ENCOUNTER 2022-09-06 15:12 | Emergency (ER) | payer MEDICAID ==
[~2022-09-06] VITALS: Ht 152.4 cm; Wt 85.3 kg
[~2022-09-06 15:12] MED LIST changes: -ARIP15TA18 PO; -CLOP75TA32 PO; -DOXY100C5 PO; -LIDOCAINE HCL 4% LTA SOL 4 ML VIAL TP ONE; -MELA10TA20 PO; -TRAZ-185 PO
[2022-09-06 15:19] VITALS: BP 176/84
[2022-09-06] MEDS ORDERED: 0.9% NACL 500ML IV.SOLN 500 ML IV SCH (16:00)
[2022-09-06] MEDS ORDERED: VANCOMYCIN 1G VIAL IVPB ONE (16:00)
[2022-09-06] MEDS ORDERED: VANCOMYCIN 1G/250ML KIT 250 ML IV ONE (16:53)
[2022-09-06 16:59] LABS: BASOPHILS % (AUTO) 0.6 % (0.0-5.0); EOSINOPHILS % (AUTO) 1.8 % (0.0-8.0); HEMATOCRIT 36.6 % (36-48); MEAN CORPUSCULAR HEMOGLOBIN 27.4 pg (27.0-33.0); MEAN CORPUSCULAR HGB CONC 32.2 g/dL (32.0-36.0); MEAN CORPUSCULAR VOLUME 85.1 fL (79-99); MONOCYTES % (AUTO) 10.9 % (3.0-13.0); NEUTROPHILS % (AUTO) 61.4 % (40.0-77.0); PLATELET COUNT (AUTO) 264 K/uL (130-400); WHITE BLOOD COUNT (AUTO) 6.5 K/uL (4.8-10.8)
[2022-09-06 17:29] LABS: ALBUMIN 2.9 g/dL (3.5-5.0); POTASSIUM 5.1 mmol/L (3.5-5.1); TOTAL PROTEIN, SERUM 8.2 g/dL (6.0-8.3)
[2022-09-06] MEDS ORDERED: CLINDAMYCIN IVPB 600MG/50ML 50 ML IV SCH (17:30)
[2022-09-06] MEDS ORDERED: INSULIN LISPRO 100 UNIT/ML 3ML SQ SCH (18:00)
== END 2022-09-06 18:58 | disposition home or self-care (01) ==
LOC: EDH 15:12
DX: E11.9 Type 2 diabetes mellitus without complications (principal); L08.9 Local infection of the skin and subcutaneous tissue, unspecified; E66.9 Obesity, unspecified; E78.00 Pure hypercholesterolemia, unspecified; I10 Essential (primary) hypertension; Z79.82 Long term (current) use of aspirin; Z88.0 Allergy status to penicillin; Z88.1 Allergy status to other antibiotic agents; Z95.1 Presence of aortocoronary bypass graft; Z20.822 Contact with and (suspected) exposure to COVID-19
CPT/HCPCS: 99285; 96365; 87635; 84484; 80053; 85025; 87040 ×2; 87076; 87077 ×2; 87186 ×2; 83605; 36415; 73562; 96368; 93005; 96372; 87070; C9803; J7040; J3370; J3490

== ENCOUNTER → 2022-09-11 | Outpatient (CLI) | payer MEDICAID ==
[~2022-09-11] MED LIST changes: +LIDOCAINE HCL 4% LTA SOL 4 ML VIAL TP ONE
== END | disposition home or self-care (01) ==
LOC: WHH 10:06
PROVIDERS: ATTEND Family Medicine
DX: T81.89XD Other complications of procedures, not elsewhere classified, subsequent encounter (principal); S61.502D Unspecified open wound of left wrist, subsequent encounter; S81.001D Unspecified open wound, right knee, subsequent encounter; L03.115 Cellulitis of right lower limb; E11.65 Type 2 diabetes mellitus with hyperglycemia; E11.10 Type 2 diabetes mellitus with ketoacidosis without coma; E11.22 Type 2 diabetes mellitus with diabetic chronic kidney disease; I12.0 Hypertensive chronic kidney disease with stage 5 chronic kidney disease or end stage renal disease; N18.6 End stage renal disease; E78.5 Hyperlipidemia, unspecified; E66.9 Obesity, unspecified; F20.9 Schizophrenia, unspecified; F41.9 Anxiety disorder, unspecified; F32.A Depression, unspecified; Z68.31 Body mass index [BMI] 31.0-31.9, adult; Z95.1 Presence of aortocoronary bypass graft; Z79.899 Other long term (current) drug therapy; Z90.49 Acquired absence of other specified parts of digestive tract; X58.XXXD Exposure to other specified factors, subsequent encounter; Y83.8 Other surgical procedures as the cause of abnormal reaction of the patient, or of later complication, without mention of misadventure at the time of the procedure
CPT/HCPCS: 11042; 11045

== ENCOUNTER 2022-09-16 14:37 | Inpatient (IN) | payer MEDICAID ==
[~2022-09-16] VITALS: Ht 165.1 cm; Wt 79.8 kg
[~2022-09-16 14:37] MED LIST changes: -LIDOCAINE HCL 4% LTA SOL 4 ML VIAL TP ONE
[2022-09-16 15:11] LABS: BASOPHILS % (AUTO) 0.5 % (0.0-5.0); EOSINOPHILS % (AUTO) 2.4 % (0.0-8.0); HEMATOCRIT 30.5 % (36-48); LYMPHOCYTES % (AUTO) 20.2 % (21.0-51.0); MEAN CORPUSCULAR HEMOGLOBIN 27.2 pg (27.0-33.0); MEAN CORPUSCULAR HGB CONC 32.5 g/dL (32.0-36.0); MEAN CORPUSCULAR VOLUME 83.8 fL (79-99); MONOCYTES % (AUTO) 9.6 % (3.0-13.0); NEUTROPHILS % (AUTO) 66.8 % (40.0-77.0); PLATELET COUNT (AUTO) 226 K/uL (130-400); RED BLOOD CELL COUNT(AUTO) 3.64 MIL/uL (4.00-5.50); RED CELL DISTRIBUTION WIDTH 14.2 % (11.0-15.5); WHITE BLOOD COUNT (AUTO) 8.1 K/uL (4.8-10.8)
[2022-09-16 15:17] LABS: ABG BASE EXCESS -3.8 mmol/L (-2.0-3.0); ABG HCO3 20.6 mmol/L (21.0-28.0); ABG OXYGEN SATURATION 94.4 % (95.0-99.0); ABG PCO2 35 mmHg (32-45)
[2022-09-16 15:33] LABS: ALBUMIN 2.7 g/dL (3.5-5.0); CREATININE 3.5 mg/dL (0.5-1.5); POTASSIUM 4.7 mmol/L (3.5-5.1); TOTAL PROTEIN, SERUM 7.9 g/dL (6.0-8.3)
[2022-09-16 15:34] LABS: B-TYPE NATRIURETIC PEPTIDE 2080 pg/mL (0-100)
[2022-09-16] MEDS ORDERED: FUROSEMIDE 40MG VIAL IV ONE (19:00)
[2022-09-16] MEDS ORDERED: GLUCAGON 1MG KIT 1 MG ML IM PRN (19:00)
[2022-09-16] MEDS ORDERED: DEXTROSE 50%-WATER 50 ML DISP.SYRIN IV PRN (19:00)
[2022-09-16] MEDS: HEPARIN 5,000 UNIT VIAL SQ SCH (21:18)
[2022-09-16] MEDS: INSULIN HUMULIN R 100 UNIT/ML 3ML SQ SCH (21:19)
[2022-09-16] MEDS: TRAMADOL HCL 50 MG TABLET PO PRN (23:12)
[2022-09-17] VITALS (17 sets, daily range): BP systolic 124–164; BP diastolic 69–99
[2022-09-17] MEDS ORDERED: LINA5TAB PO (06:31)
[2022-09-17] MEDS ORDERED: PANT40TA54 PO (06:31)
[2022-09-17] MEDS ORDERED: SERT-439 PO (06:31)
[2022-09-17] MEDS ORDERED: HYDR-3422 PO (06:31)
[2022-09-17 07:29] LABS: BILIRUBIN,URINE NEGATIVE (NEGATIVE); GLUCOSE, URINE (UA) NEGATIVE (NEGATIVE); KETONES,URINE NEGATIVE (NEGATIVE); LEUKOCYTE ESTERASE ,URINE NEGATIVE Leu/uL (NEGATIVE); NITRATE,URINE NEGATIVE (NEGATIVE); OCCULT BLOOD,URINE NEGATIVE (NEGATIVE); PH,URINE 5.5 (5.0-8.0); PROTEIN,URINE TRACE mg/dL (NEGATIVE); UROBILINOGEN,URINE 0.2 mg/dL (0.2-1.0)
[2022-09-17] MEDS: INSULIN HUMULIN R 100 UNIT/ML 3ML SQ SCH ×4 (07:30→21:54)
[2022-09-17 07:34] LABS: APPEARANCE,URINE HAZY (CLEAR); COLOR,URINE YELLOW (YELLOW)
[2022-09-17 07:41] LABS: BACTERIA,URINE Rare /HPF (None Seen); RBC,URINE 0-1 /HPF (0-1); WBC,URINE 0-1 /HPF (0-1); YEAST,URINE BUDDING Few /HPF (None Seen)
[2022-09-17 08:00] LABS: BASOPHILS % (AUTO) 0.5 % (0.0-5.0); EOSINOPHILS % (AUTO) 3.6 % (0.0-8.0); HEMATOCRIT 31.9 % (36-48); LYMPHOCYTES % (AUTO) 25.6 % (21.0-51.0); MEAN CORPUSCULAR HEMOGLOBIN 27.2 pg (27.0-33.0); MEAN CORPUSCULAR HGB CONC 33.2 g/dL (32.0-36.0); MONOCYTES % (AUTO) 7.7 % (3.0-13.0); NEUTROPHILS % (AUTO) 61.9 % (40.0-77.0); PLATELET COUNT (AUTO) 275 K/uL (130-400); RED BLOOD CELL COUNT(AUTO) 3.89 MIL/uL (4.00-5.50); RED CELL DISTRIBUTION WIDTH 14.4 % (11.0-15.5); WHITE BLOOD COUNT (AUTO) 9.5 K/uL (4.8-10.8)
[2022-09-17 08:12] LABS: ALBUMIN 2.9 g/dL (3.5-5.0); CREATININE 3.4 mg/dL (0.5-1.5); MAGNESIUM 2.1 mg/dL (1.80-2.40); POTASSIUM 4.4 mmol/L (3.5-5.1); TOTAL PROTEIN, SERUM 8.4 g/dL (6.0-8.3)
[2022-09-17 08:29] LABS: HEMOGLOBIN A1C 12.2 % (4.0-6.0)
[2022-09-17] MEDS: HEPARIN 5,000 UNIT VIAL SQ SCH ×2 (09:00→21:53)
[2022-09-17] MEDS: TRAMADOL HCL 50 MG TABLET PO PRN (18:06)
[2022-09-17] MEDS: HEPARIN 5,000 UNIT VIAL IRRIG PRN (18:22)
[2022-09-17] MEDS: MIDODRINE HCL 5 MG TABLET PO SCH (21:00)
[2022-09-17] MEDS ORDERED: FUROSEMIDE 20 MG TABLET PO SCH (21:00)
[2022-09-17] MEDS: SERTRALINE HCL 50 MG TABLET PO SCH (21:51)
[2022-09-17] MEDS: GABAPENTIN 100 MG CAPSULE PO SCH (21:51)
[2022-09-17] MEDS: FERROUS SULFATE 325 MG TABLET.DR PO SCH (21:51)
[2022-09-17] MEDS: ATORVASTATIN 20 MG TABLET PO SCH (21:51)
[2022-09-17] MEDS: FUROSEMIDE 40MG VIAL IV SCH (21:52)
[2022-09-17] MEDS: METOPROLOL TARTRATE 50 MG TAB PO SCH (21:52)
[2022-09-17] MEDS: TRAZODONE HCL 100 MG TABLET PO SCH (21:52)
[2022-09-18 00:05] VITALS: BP 129/42
[2022-09-18 04:13] VITALS: BP 92/66
[2022-09-18] MEDS: TRAMADOL HCL 50 MG TABLET PO PRN (05:18)
[2022-09-18] MEDS: INSULIN HUMULIN R 100 UNIT/ML 3ML SQ SCH ×4 (05:50→20:21)
[2022-09-18 07:00] VITALS: BP 103/65
[2022-09-18] MEDS: PANTOPRAZOLE 40 MG TAB DR PO SCH (08:47)
[2022-09-18] MEDS: MIDODRINE HCL 5 MG TABLET PO SCH ×3 (08:47→19:46)
[2022-09-18] MEDS: ARIPIPRAZOLE 5 MG TABLET PO SCH (08:47)
[2022-09-18] MEDS: FERROUS SULFATE 325 MG TABLET.DR PO SCH ×2 (08:48→19:45)
[2022-09-18] MEDS: GABAPENTIN 100 MG CAPSULE PO SCH ×2 (08:48→19:45)
[2022-09-18] MEDS: METOPROLOL TARTRATE 50 MG TAB PO SCH ×2 (08:48→19:46)
[2022-09-18] MEDS: SERTRALINE HCL 50 MG TABLET PO SCH ×3 (08:48→19:45)
[2022-09-18] MEDS: CLOPIDOGREL 75MG TAB PO SCH (08:48)
[2022-09-18] MEDS: Vitamin B Complex/Vit C/Folic Acid PO SCH (08:48)
[2022-09-18] MEDS: ASPIRIN 81MG CHEW TAB PO SCH (08:49)
[2022-09-18] MEDS: VENLAFAXINE HCL 75 MG TAB PO SCH (08:51)
[2022-09-18] MEDS: HEPARIN 5,000 UNIT VIAL SQ SCH ×2 (08:52→19:48)
[2022-09-18 11:00] VITALS: BP 97/64
[2022-09-18 16:00] VITALS: BP 116/60
[2022-09-18] MEDS: FUROSEMIDE 40MG VIAL IV SCH (19:46)
[2022-09-18] MEDS: TRAZODONE HCL 100 MG TABLET PO SCH (19:46)
[2022-09-18] MEDS: ATORVASTATIN 20 MG TABLET PO SCH (19:46)
[2022-09-18 20:00] VITALS: BP 118/68
[2022-09-18] MEDS: SODIUM HYPOCHLORITE 0.125% 473 ML SOLUTION TP SCH (20:21)
[2022-09-19] VITALS (22 sets, daily range): BP systolic 121–159; BP diastolic 52–94
[2022-09-19] MEDS: INSULIN HUMULIN R 100 UNIT/ML 3ML SQ SCH ×4 (05:44→21:00)
[2022-09-19 06:17] LABS: HEMATOCRIT 32.4 % (36-48); MEAN CORPUSCULAR HEMOGLOBIN 27.2 pg (27.0-33.0); MEAN CORPUSCULAR HGB CONC 32.1 g/dL (32.0-36.0); MEAN CORPUSCULAR VOLUME 84.6 fL (79-99); RED BLOOD CELL COUNT(AUTO) 3.83 MIL/uL (4.00-5.50); RED CELL DISTRIBUTION WIDTH 14.6 % (11.0-15.5)
[2022-09-19 06:28] LABS: CREATININE 2.9 mg/dL (0.5-1.5); MAGNESIUM 2.1 mg/dL (1.80-2.40); POTASSIUM 4.4 mmol/L (3.5-5.1)
[2022-09-19] MEDS: METOPROLOL TARTRATE 50 MG TAB PO SCH ×2 (09:00→19:33)
[2022-09-19] MEDS: MIDODRINE HCL 5 MG TABLET PO SCH ×3 (09:00→19:33)
[2022-09-19] MEDS: ASPIRIN 81MG CHEW TAB PO SCH (09:16)
[2022-09-19] MEDS: FERROUS SULFATE 325 MG TABLET.DR PO SCH ×2 (09:16→19:33)
[2022-09-19] MEDS: CLOPIDOGREL 75MG TAB PO SCH (09:16)
[2022-09-19] MEDS: GABAPENTIN 100 MG CAPSULE PO SCH ×2 (09:16→19:33)
[2022-09-19] MEDS: PANTOPRAZOLE 40 MG TAB DR PO SCH (09:16)
[2022-09-19] MEDS: Vitamin B Complex/Vit C/Folic Acid PO SCH (09:16)
[2022-09-19] MEDS: SODIUM HYPOCHLORITE 0.125% 473 ML SOLUTION TP SCH (09:17)
[2022-09-19] MEDS: HEPARIN 5,000 UNIT VIAL SQ SCH ×2 (09:25→19:34)
[2022-09-19] MEDS: ARIPIPRAZOLE 5 MG TABLET PO SCH (11:06)
[2022-09-19] MEDS: VENLAFAXINE HCL 75 MG TAB PO SCH (11:06)
[2022-09-19] MEDS: SERTRALINE HCL 50 MG TABLET PO SCH ×3 (11:06→19:33)
[2022-09-19] MEDS: HEPARIN 5,000 UNIT VIAL IRRIG PRN (11:57)
[2022-09-19] MEDS: FUROSEMIDE 40MG VIAL IV SCH (19:32)
[2022-09-19] MEDS: ATORVASTATIN 20 MG TABLET PO SCH (19:32)
[2022-09-19] MEDS: TRAZODONE HCL 100 MG TABLET PO SCH (19:33)
[2022-09-20 04:14] VITALS: BP 130/67
[2022-09-20 05:40] LABS: BASOPHILS % (AUTO) 0.5 % (0.0-5.0); EOSINOPHILS % (AUTO) 2.2 % (0.0-8.0); HEMATOCRIT 34.6 % (36-48); LYMPHOCYTES % (AUTO) 17.7 % (21.0-51.0); MEAN CORPUSCULAR HEMOGLOBIN 26.9 pg (27.0-33.0); MEAN CORPUSCULAR HGB CONC 31.2 g/dL (32.0-36.0); MEAN CORPUSCULAR VOLUME 86.3 fL (79-99); MONOCYTES % (AUTO) 7.7 % (3.0-13.0); NEUTROPHILS % (AUTO) 71.4 % (40.0-77.0); PLATELET COUNT (AUTO) 279 K/uL (130-400); RED BLOOD CELL COUNT(AUTO) 4.01 MIL/uL (4.00-5.50); RED CELL DISTRIBUTION WIDTH 14.5 % (11.0-15.5); WHITE BLOOD COUNT (AUTO) 8.8 K/uL (4.8-10.8)
[2022-09-20 05:57] LABS: ALBUMIN 2.6 g/dL (3.5-5.0); CREATININE 2.1 mg/dL (0.5-1.5); MAGNESIUM 1.6 mg/dL (1.80-2.40); TOTAL PROTEIN, SERUM 7.5 g/dL (6.0-8.3)
[2022-09-20] MEDS: INSULIN HUMULIN R 100 UNIT/ML 3ML SQ SCH ×4 (06:09→21:00)
[2022-09-20 08:00] VITALS: BP 137/61
[2022-09-20] MEDS: PANTOPRAZOLE 40 MG TAB DR PO SCH (10:04)
[2022-09-20] MEDS: CLOPIDOGREL 75MG TAB PO SCH (10:04)
[2022-09-20] MEDS: GABAPENTIN 100 MG CAPSULE PO SCH ×2 (10:04→21:07)
[2022-09-20] MEDS: MIDODRINE HCL 5 MG TABLET PO SCH ×3 (10:04→21:08)
[2022-09-20] MEDS: FERROUS SULFATE 325 MG TABLET.DR PO SCH ×2 (10:04→21:07)
[2022-09-20] MEDS: METOPROLOL TARTRATE 50 MG TAB PO SCH ×2 (10:04→21:07)
[2022-09-20] MEDS: ASPIRIN 81MG CHEW TAB PO SCH (10:04)
[2022-09-20] MEDS: SERTRALINE HCL 50 MG TABLET PO SCH ×3 (10:04→21:07)
[2022-09-20] MEDS: VENLAFAXINE HCL 75 MG TAB PO SCH (10:04)
[2022-09-20] MEDS: Vitamin B Complex/Vit C/Folic Acid PO SCH (10:05)
[2022-09-20] MEDS: SODIUM HYPOCHLORITE 0.125% 473 ML SOLUTION TP SCH (10:06)
[2022-09-20] MEDS: ARIPIPRAZOLE 5 MG TABLET PO SCH (10:06)
[2022-09-20] MEDS: HEPARIN 5,000 UNIT VIAL SQ SCH ×2 (10:12→21:08)
[2022-09-20 11:45] VITALS: BP 145/77
[2022-09-20 16:00] VITALS: BP 133/72
[2022-09-20 20:00] VITALS: BP 122/72
[2022-09-20] MEDS: FUROSEMIDE 40MG VIAL IV SCH (21:06)
[2022-09-20] MEDS: TRAZODONE HCL 100 MG TABLET PO SCH (21:07)
[2022-09-20] MEDS: ATORVASTATIN 20 MG TABLET PO SCH (21:07)
[2022-09-21] VITALS (40 sets, daily range): BP systolic 13–145; BP diastolic 39–86
[2022-09-21 05:06] LABS: INR 1.08 (0.85-1.15); PROTHROMBIN TIME 11.7 SEC (9.6-11.6)
[2022-09-21 05:07] LABS: PARTIAL THROMBOPLASTIN TIME 27.6 SEC (26.3-35.5)
[2022-09-21 05:23] LABS: BASOPHILS % (AUTO) 0.3 % (0.0-5.0); EOSINOPHILS % (AUTO) 3.1 % (0.0-8.0); HEMATOCRIT 32.6 % (36-48); LYMPHOCYTES % (AUTO) 23.8 % (21.0-51.0); MEAN CORPUSCULAR HEMOGLOBIN 27.2 pg (27.0-33.0); MEAN CORPUSCULAR HGB CONC 32.2 g/dL (32.0-36.0); MEAN CORPUSCULAR VOLUME 84.5 fL (79-99); NEUTROPHILS % (AUTO) 60.4 % (40.0-77.0); PLATELET COUNT (AUTO) 281 K/uL (130-400); RED BLOOD CELL COUNT(AUTO) 3.86 MIL/uL (4.00-5.50); RED CELL DISTRIBUTION WIDTH 14.9 % (11.0-15.5); WHITE BLOOD COUNT (AUTO) 6.8 K/uL (4.8-10.8)
[2022-09-21 05:26] LABS: ALBUMIN 2.5 g/dL (3.5-5.0); CREATININE 2.3 mg/dL (0.5-1.5); POTASSIUM 3.8 mmol/L (3.5-5.1); TOTAL PROTEIN, SERUM 7.1 g/dL (6.0-8.3)
[2022-09-21] MEDS: INSULIN HUMULIN R 100 UNIT/ML 3ML SQ SCH ×4 (06:03→23:12)
[2022-09-21] MEDS ORDERED: VANCOMYCIN 1G VIAL ONE (06:15)
[2022-09-21] MEDS ORDERED: LIDOCAINE PF 100MG/5ML (2%) SYRINGE 5ML ONE (07:17)
[2022-09-21] MEDS ORDERED: FENTANYL CITRATE PF 50 MCG/1 ML 2ML VIAL ONE (07:18)
[2022-09-21] MEDS ORDERED: MIDAZOLAM HCL 1 MG/ML 2ML VIAL ONE (07:18)
[2022-09-21] MEDS ORDERED: PROPOFOL 10 MG/ML 20ML VIAL IV ONE (07:18)
[2022-09-21] MEDS ORDERED: ONDANSETRON 4MG INJ ONE ×2 (07:18→09:36)
[2022-09-21] MEDS ORDERED: CLINDAMYCIN IVPB 900MG/50ML 50 ML IV ONE (07:56)
[2022-09-21] MEDS ORDERED: EPHEDRINE SULFATE 50 MG/ML AMPULE ONE (08:32)
[2022-09-21] MEDS: MIDODRINE HCL 5 MG TABLET PO SCH ×3 (09:00→22:48)
[2022-09-21] MEDS: METOPROLOL TARTRATE 50 MG TAB PO SCH ×2 (09:00→22:47)
[2022-09-21] MEDS: PANTOPRAZOLE 40 MG TAB DR PO SCH (09:00)
[2022-09-21] MEDS: ASPIRIN 81MG CHEW TAB PO SCH (09:00)
[2022-09-21] MEDS: HEPARIN 5,000 UNIT VIAL SQ SCH ×2 (09:00→23:12)
[2022-09-21] MEDS: GABAPENTIN 100 MG CAPSULE PO SCH ×2 (09:00→22:48)
[2022-09-21] MEDS: VENLAFAXINE HCL 75 MG TAB PO SCH (09:00)
[2022-09-21] MEDS: Vitamin B Complex/Vit C/Folic Acid PO SCH (09:00)
[2022-09-21] MEDS: FERROUS SULFATE 325 MG TABLET.DR PO SCH ×2 (09:00→22:47)
[2022-09-21] MEDS: SERTRALINE HCL 50 MG TABLET PO SCH ×3 (09:00→22:48)
[2022-09-21] MEDS: CLOPIDOGREL 75MG TAB PO SCH (09:00)
[2022-09-21] MEDS: SODIUM HYPOCHLORITE 0.125% 473 ML SOLUTION TP SCH (09:00)
[2022-09-21] MEDS: ARIPIPRAZOLE 5 MG TABLET PO SCH (09:00)
[2022-09-21] MEDS ORDERED: MEPERIDINE-PF 25 MG/ML SYG ONE (09:37)
[2022-09-21] MEDS: HEPARIN 5,000 UNIT VIAL IRRIG PRN (15:56)
[2022-09-21] MEDS: TRAZODONE HCL 100 MG TABLET PO SCH (22:47)
[2022-09-21] MEDS: ATORVASTATIN 20 MG TABLET PO SCH (22:47)
[2022-09-21] MEDS: FUROSEMIDE 40MG VIAL IV SCH (22:48)
[2022-09-21] MEDS: TRAMADOL HCL 50 MG TABLET PO PRN (23:38)
[2022-09-22] VITALS (7 sets, daily range): BP systolic 111–165; BP diastolic 64–76
[2022-09-22] MEDS: INSULIN HUMULIN R 100 UNIT/ML 3ML SQ SCH ×4 (05:45→20:53)
[2022-09-22] MEDS: SODIUM HYPOCHLORITE 0.125% 473 ML SOLUTION TP SCH (09:00)
[2022-09-22] MEDS: ARIPIPRAZOLE 5 MG TABLET PO SCH (09:58)
[2022-09-22] MEDS: SERTRALINE HCL 50 MG TABLET PO SCH ×3 (09:59→20:48)
[2022-09-22] MEDS: CLOPIDOGREL 75MG TAB PO SCH (09:59)
[2022-09-22] MEDS: FERROUS SULFATE 325 MG TABLET.DR PO SCH ×2 (09:59→20:48)
[2022-09-22] MEDS: PANTOPRAZOLE 40 MG TAB DR PO SCH (09:59)
[2022-09-22] MEDS: GABAPENTIN 100 MG CAPSULE PO SCH ×2 (09:59→20:48)
[2022-09-22] MEDS: Vitamin B Complex/Vit C/Folic Acid PO SCH (09:59)
[2022-09-22] MEDS: METOPROLOL TARTRATE 50 MG TAB PO SCH ×2 (09:59→20:48)
[2022-09-22] MEDS: VENLAFAXINE HCL 75 MG TAB PO SCH (09:59)
[2022-09-22] MEDS: ASPIRIN 81MG CHEW TAB PO SCH (10:00)
[2022-09-22] MEDS: HEPARIN 5,000 UNIT VIAL SQ SCH ×2 (10:01→20:52)
[2022-09-22] MEDS: TRAMADOL HCL 50 MG TABLET PO PRN (15:05)
[2022-09-22] MEDS: ATORVASTATIN 20 MG TABLET PO SCH (20:48)
[2022-09-22] MEDS: TRAZODONE HCL 100 MG TABLET PO SCH (20:49)
[2022-09-22] MEDS: FUROSEMIDE 40MG VIAL IV SCH (20:49)
[2022-09-23] MEDS: TRAMADOL HCL 50 MG TABLET PO PRN ×2 (02:31→21:33)
[2022-09-23 04:12] VITALS: BP 129/67
[2022-09-23 04:19] LABS: MEAN CORPUSCULAR HEMOGLOBIN 27.2 pg (27.0-33.0); MEAN CORPUSCULAR HGB CONC 31.6 g/dL (32.0-36.0); MEAN CORPUSCULAR VOLUME 86.3 fL (79-99); RED BLOOD CELL COUNT(AUTO) 3.71 MIL/uL (4.00-5.50); WHITE BLOOD COUNT (AUTO) 6.8 K/uL (4.8-10.8)
[2022-09-23 04:22] LABS: CREATININE 3.5 mg/dL (0.5-1.5); MAGNESIUM 1.7 mg/dL (1.80-2.40); POTASSIUM 4.1 mmol/L (3.5-5.1)
[2022-09-23] MEDS: INSULIN HUMULIN R 100 UNIT/ML 3ML SQ SCH ×4 (06:42→21:37)
[2022-09-23 08:00] VITALS: BP 126/76
[2022-09-23] MEDS: SODIUM HYPOCHLORITE 0.125% 473 ML SOLUTION TP SCH (09:00)
[2022-09-23] MEDS: VENLAFAXINE HCL 75 MG TAB PO SCH (09:38)
[2022-09-23] MEDS: PANTOPRAZOLE 40 MG TAB DR PO SCH (09:38)
[2022-09-23] MEDS: ASPIRIN 81MG CHEW TAB PO SCH (09:39)
[2022-09-23] MEDS: CLOPIDOGREL 75MG TAB PO SCH (09:39)
[2022-09-23] MEDS: ARIPIPRAZOLE 5 MG TABLET PO SCH (09:40)
[2022-09-23] MEDS: SERTRALINE HCL 50 MG TABLET PO SCH ×3 (09:40→21:34)
[2022-09-23] MEDS: METOPROLOL TARTRATE 50 MG TAB PO SCH ×2 (09:40→21:38)
[2022-09-23] MEDS: FERROUS SULFATE 325 MG TABLET.DR PO SCH ×2 (09:41→21:34)
[2022-09-23] MEDS: GABAPENTIN 100 MG CAPSULE PO SCH ×2 (09:41→21:34)
[2022-09-23] MEDS: Vitamin B Complex/Vit C/Folic Acid PO SCH (09:41)
[2022-09-23] MEDS: HEPARIN 5,000 UNIT VIAL SQ SCH ×2 (09:48→21:36)
[2022-09-23 11:00] VITALS: BP 108/51
[2022-09-23 16:00] VITALS: BP 102/58
[2022-09-23 20:02] VITALS: BP 109/65
[2022-09-23] MEDS: ATORVASTATIN 20 MG TABLET PO SCH (21:33)
[2022-09-23] MEDS: FUROSEMIDE 40MG VIAL IV SCH (21:34)
[2022-09-23] MEDS: TRAZODONE HCL 100 MG TABLET PO SCH (21:34)
[2022-09-23] MEDS: LINEZOLID 600 MG/ISO-OSM 300 ML IV SCH (21:35)
[2022-09-23 23:38] VITALS: BP 135/83
[2022-09-24] VITALS (20 sets, daily range): BP systolic 116–151; BP diastolic 70–90
[2022-09-24] MEDS: INSULIN HUMULIN R 100 UNIT/ML 3ML SQ SCH ×4 (07:30→21:47)
[2022-09-24] MEDS: VITA D PO SCH (09:00)
[2022-09-24] MEDS: HEPARIN 5,000 UNIT VIAL SQ SCH ×2 (09:00→21:48)
[2022-09-24] MEDS: METOPROLOL TARTRATE 50 MG TAB PO SCH ×2 (09:00→21:47)
[2022-09-24] MEDS: HEPARIN 5,000 UNIT VIAL IRRIG PRN (12:20)
[2022-09-24] MEDS: LINEZOLID 600 MG/ISO-OSM 300 ML IV SCH ×2 (12:57→21:45)
[2022-09-24] MEDS: FERROUS SULFATE 325 MG TABLET.DR PO SCH ×2 (12:57→21:45)
[2022-09-24] MEDS: PANTOPRAZOLE 40 MG TAB DR PO SCH (12:58)
[2022-09-24] MEDS: SERTRALINE HCL 50 MG TABLET PO SCH ×3 (12:58→21:48)
[2022-09-24] MEDS: Vitamin B Complex/Vit C/Folic Acid PO SCH (12:59)
[2022-09-24] MEDS: GABAPENTIN 100 MG CAPSULE PO SCH ×2 (12:59→21:46)
[2022-09-24] MEDS: CLOPIDOGREL 75MG TAB PO SCH (12:59)
[2022-09-24] MEDS: ASPIRIN 81MG CHEW TAB PO SCH (13:00)
[2022-09-24] MEDS: VENLAFAXINE HCL 75 MG TAB PO SCH (13:00)
[2022-09-24] MEDS: ARIPIPRAZOLE 5 MG TABLET PO SCH (13:00)
[2022-09-24] MEDS ORDERED: MORPHINE 2 MG SYG IVP ONE (16:30)
[2022-09-24] MEDS: METRONIDAZOLE 500 MG TABLET PO SCH (17:56)
[2022-09-24] MEDS: ATORVASTATIN 20 MG TABLET PO SCH (21:45)
[2022-09-24] MEDS: FUROSEMIDE 40MG VIAL IV SCH (21:45)
[2022-09-24] MEDS: TRAZODONE HCL 100 MG TABLET PO SCH (21:45)
[2022-09-25] VITALS: BP 131/62
[2022-09-25] MEDS: METRONIDAZOLE 500 MG TABLET PO SCH ×3 (01:43→17:57)
[2022-09-25 04:00] VITALS: BP 111/71
[2022-09-25] MEDS: INSULIN HUMULIN R 100 UNIT/ML 3ML SQ SCH ×4 (06:25→21:33)
[2022-09-25 07:30] VITALS: BP 117/63
[2022-09-25] MEDS: LINEZOLID 600 MG/ISO-OSM 300 ML IV SCH (10:43)
[2022-09-25] MEDS: Vitamin B Complex/Vit C/Folic Acid PO SCH (10:44)
[2022-09-25] MEDS: PANTOPRAZOLE 40 MG TAB DR PO SCH (10:44)
[2022-09-25] MEDS: ARIPIPRAZOLE 5 MG TABLET PO SCH (10:44)
[2022-09-25] MEDS: GABAPENTIN 100 MG CAPSULE PO SCH ×2 (10:44→21:31)
[2022-09-25] MEDS: FERROUS SULFATE 325 MG TABLET.DR PO SCH ×2 (10:44→21:31)
[2022-09-25] MEDS: VENLAFAXINE HCL 75 MG TAB PO SCH (10:44)
[2022-09-25] MEDS: METOPROLOL TARTRATE 50 MG TAB PO SCH ×2 (10:45→21:31)
[2022-09-25] MEDS: CLOPIDOGREL 75MG TAB PO SCH (10:45)
[2022-09-25] MEDS: ASPIRIN 81MG CHEW TAB PO SCH (10:46)
[2022-09-25] MEDS: SERTRALINE HCL 50 MG TABLET PO SCH ×3 (10:48→21:31)
[2022-09-25] MEDS: HEPARIN 5,000 UNIT VIAL SQ SCH ×2 (10:50→21:32)
[2022-09-25 11:00] VITALS: BP 125/63
[2022-09-25] MEDS ORDERED: ZYVOX 600 MG TAB PO SCH (12:00)
[2022-09-25 15:30] VITALS: BP 139/82
[2022-09-25 20:00] VITALS: BP 122/72
[2022-09-25] MEDS: ZYVOX 600 MG TAB PO SCH (21:31)
[2022-09-25] MEDS: FUROSEMIDE 40MG VIAL IV SCH (21:31)
[2022-09-25] MEDS: ATORVASTATIN 20 MG TABLET PO SCH (21:31)
[2022-09-25] MEDS: TRAZODONE HCL 100 MG TABLET PO SCH (21:31)
[2022-09-25] MEDS: TRAMADOL HCL 50 MG TABLET PO PRN (21:35)
[2022-09-26] VITALS (23 sets, daily range): BP systolic 97–127; BP diastolic 52–80
[2022-09-26] MEDS: METRONIDAZOLE 500 MG TABLET PO SCH ×3 (00:56→17:38)
[2022-09-26] MEDS: INSULIN HUMULIN R 100 UNIT/ML 3ML SQ SCH ×4 (06:18→21:39)
[2022-09-26] MEDS: Vitamin B Complex/Vit C/Folic Acid PO SCH (09:15)
[2022-09-26] MEDS: ZYVOX 600 MG TAB PO SCH ×2 (09:15→21:32)
[2022-09-26] MEDS: ARIPIPRAZOLE 5 MG TABLET PO SCH (09:15)
[2022-09-26] MEDS: VENLAFAXINE HCL 75 MG TAB PO SCH (09:15)
[2022-09-26] MEDS: SERTRALINE HCL 50 MG TABLET PO SCH ×3 (09:16→21:32)
[2022-09-26] MEDS: CLOPIDOGREL 75MG TAB PO SCH (09:16)
[2022-09-26] MEDS: ASPIRIN 81MG CHEW TAB PO SCH (09:16)
[2022-09-26] MEDS: PANTOPRAZOLE 40 MG TAB DR PO SCH (09:16)
[2022-09-26] MEDS: FERROUS SULFATE 325 MG TABLET.DR PO SCH ×2 (09:16→21:32)
[2022-09-26] MEDS: METOPROLOL TARTRATE 50 MG TAB PO SCH ×2 (09:16→21:34)
[2022-09-26] MEDS: GABAPENTIN 100 MG CAPSULE PO SCH ×2 (09:16→21:32)
[2022-09-26] MEDS: HEPARIN 5,000 UNIT VIAL SQ SCH ×2 (09:17→21:38)
[2022-09-26] MEDS: FUROSEMIDE 40MG VIAL IV SCH (21:28)
[2022-09-26] MEDS: TRAZODONE HCL 100 MG TABLET PO SCH (21:32)
[2022-09-26] MEDS: ATORVASTATIN 20 MG TABLET PO SCH (21:32)
[2022-09-27] VITALS: BP 99/58
[2022-09-27 04:00] VITALS: BP 102/48
[2022-09-27] MEDS: METRONIDAZOLE 500 MG TABLET PO SCH ×3 (05:08→17:53)
[2022-09-27 05:25] LABS: HEMATOCRIT 37.6 % (36-48); MEAN CORPUSCULAR HEMOGLOBIN 26.7 pg (27.0-33.0); MEAN CORPUSCULAR HGB CONC 31.4 g/dL (32.0-36.0); MEAN CORPUSCULAR VOLUME 85.1 fL (79-99); RED BLOOD CELL COUNT(AUTO) 4.42 MIL/uL (4.00-5.50); RED CELL DISTRIBUTION WIDTH 14.5 % (11.0-15.5); WHITE BLOOD COUNT (AUTO) 6.8 K/uL (4.8-10.8)
[2022-09-27 05:37] LABS: CREATININE 3.7 mg/dL (0.5-1.5); MAGNESIUM 1.7 mg/dL (1.80-2.40); POTASSIUM 4.1 mmol/L (3.5-5.1)
[2022-09-27] MEDS: INSULIN HUMULIN R 100 UNIT/ML 3ML SQ SCH ×4 (06:34→20:48)
[2022-09-27 07:30] VITALS: BP 147/91
[2022-09-27] MEDS: METOPROLOL TARTRATE 50 MG TAB PO SCH ×2 (08:43→20:41)
[2022-09-27] MEDS: ARIPIPRAZOLE 5 MG TABLET PO SCH (08:43)
[2022-09-27] MEDS: ASPIRIN 81MG CHEW TAB PO SCH (08:43)
[2022-09-27] MEDS: Vitamin B Complex/Vit C/Folic Acid PO SCH (08:44)
[2022-09-27] MEDS: FERROUS SULFATE 325 MG TABLET.DR PO SCH ×2 (08:44→20:42)
[2022-09-27] MEDS: SERTRALINE HCL 50 MG TABLET PO SCH ×3 (08:44→20:42)
[2022-09-27] MEDS: PANTOPRAZOLE 40 MG TAB DR PO SCH (08:44)
[2022-09-27] MEDS: CLOPIDOGREL 75MG TAB PO SCH (08:44)
[2022-09-27] MEDS: ZYVOX 600 MG TAB PO SCH ×2 (08:44→20:42)
[2022-09-27] MEDS: VENLAFAXINE HCL 75 MG TAB PO SCH (08:44)
[2022-09-27] MEDS: GABAPENTIN 100 MG CAPSULE PO SCH ×2 (08:44→20:41)
[2022-09-27] MEDS: HEPARIN 5,000 UNIT VIAL SQ SCH ×2 (08:47→20:48)
[2022-09-27 11:30] VITALS: BP 114/70
[2022-09-27 15:30] VITALS: BP 12/68
[2022-09-27 20:00] VITALS: BP 113/61
[2022-09-27] MEDS: FUROSEMIDE 40MG VIAL IV SCH (20:38)
[2022-09-27] MEDS: ATORVASTATIN 20 MG TABLET PO SCH (20:42)
[2022-09-27] MEDS: TRAZODONE HCL 100 MG TABLET PO SCH (20:42)
[2022-09-28] VITALS (18 sets, daily range): BP systolic 95–136; BP diastolic 45–83
[2022-09-28] MEDS: METRONIDAZOLE 500 MG TABLET PO SCH ×3 (02:24→18:33)
[2022-09-28] MEDS: INSULIN HUMULIN R 100 UNIT/ML 3ML SQ SCH ×4 (06:16→21:00)
[2022-09-28] MEDS: VENLAFAXINE HCL 75 MG TAB PO SCH (10:05)
[2022-09-28] MEDS: ARIPIPRAZOLE 5 MG TABLET PO SCH (10:06)
[2022-09-28] MEDS: METOPROLOL TARTRATE 50 MG TAB PO SCH ×2 (10:07→21:43)
[2022-09-28] MEDS: ASPIRIN 81MG CHEW TAB PO SCH (10:07)
[2022-09-28] MEDS: GABAPENTIN 100 MG CAPSULE PO SCH ×2 (10:07→21:43)
[2022-09-28] MEDS: CLOPIDOGREL 75MG TAB PO SCH (10:08)
[2022-09-28] MEDS: ZYVOX 600 MG TAB PO SCH ×2 (10:08→21:43)
[2022-09-28] MEDS: SERTRALINE HCL 50 MG TABLET PO SCH ×3 (10:08→21:43)
[2022-09-28] MEDS: FERROUS SULFATE 325 MG TABLET.DR PO SCH ×2 (10:08→21:43)
[2022-09-28] MEDS: PANTOPRAZOLE 40 MG TAB DR PO SCH (10:08)
[2022-09-28] MEDS: HEPARIN 5,000 UNIT VIAL SQ SCH ×2 (10:18→21:41)
[2022-09-28] MEDS: Vitamin B Complex/Vit C/Folic Acid PO SCH (10:20)
[2022-09-28 11:31] LABS: HEMATOCRIT 38.4 % (36-48); MEAN CORPUSCULAR HEMOGLOBIN 27.3 pg (27.0-33.0); MEAN CORPUSCULAR HGB CONC 31.8 g/dL (32.0-36.0); MEAN CORPUSCULAR VOLUME 85.9 fL (79-99); RED BLOOD CELL COUNT(AUTO) 4.47 MIL/uL (4.00-5.50); RED CELL DISTRIBUTION WIDTH 14.2 % (11.0-15.5); WHITE BLOOD COUNT (AUTO) 7.2 K/uL (4.8-10.8)
[2022-09-28 11:54] LABS: CREATININE 4.2 mg/dL (0.5-1.5); POTASSIUM 4.4 mmol/L (3.5-5.1)
[2022-09-28] MEDS: HEPARIN 5,000 UNIT VIAL IRRIG PRN (15:09)
[2022-09-28] MEDS: TRAZODONE HCL 100 MG TABLET PO SCH (21:43)
[2022-09-28] MEDS: ATORVASTATIN 20 MG TABLET PO SCH (21:43)
[2022-09-28] MEDS: FUROSEMIDE 40MG VIAL IV SCH (21:43)
[2022-09-29] MEDS: METRONIDAZOLE 500 MG TABLET PO SCH ×3 (02:38→17:02)
[2022-09-29 04:39] VITALS: BP 99/64
[2022-09-29] MEDS: INSULIN HUMULIN R 100 UNIT/ML 3ML SQ SCH ×4 (06:35→21:18)
[2022-09-29 08:08] VITALS: BP 109/64
[2022-09-29] MEDS: ARIPIPRAZOLE 5 MG TABLET PO SCH (10:01)
[2022-09-29] MEDS: PANTOPRAZOLE 40 MG TAB DR PO SCH (10:01)
[2022-09-29] MEDS: GABAPENTIN 100 MG CAPSULE PO SCH ×2 (10:02→21:13)
[2022-09-29] MEDS: SERTRALINE HCL 50 MG TABLET PO SCH ×3 (10:02→21:13)
[2022-09-29] MEDS: CLOPIDOGREL 75MG TAB PO SCH (10:02)
[2022-09-29] MEDS: METOPROLOL TARTRATE 50 MG TAB PO SCH ×2 (10:02→21:00)
[2022-09-29] MEDS: FERROUS SULFATE 325 MG TABLET.DR PO SCH ×2 (10:02→21:14)
[2022-09-29] MEDS: ZYVOX 600 MG TAB PO SCH ×2 (10:02→21:14)
[2022-09-29] MEDS: Vitamin B Complex/Vit C/Folic Acid PO SCH (10:02)
[2022-09-29] MEDS: ASPIRIN 81MG CHEW TAB PO SCH (10:02)
[2022-09-29] MEDS: HEPARIN 5,000 UNIT VIAL SQ SCH ×2 (10:03→21:17)
[2022-09-29] MEDS: TRAMADOL HCL 50 MG TABLET PO PRN (10:03)
[2022-09-29] MEDS: VENLAFAXINE HCL 75 MG TAB PO SCH (10:04)
[2022-09-29 12:42] VITALS: BP 156/51
[2022-09-29 16:05] VITALS: BP 115/69
[2022-09-29 20:26] VITALS: BP 95/54
[2022-09-29] MEDS: FUROSEMIDE 40MG VIAL IV SCH (21:13)
[2022-09-29] MEDS: TRAZODONE HCL 100 MG TABLET PO SCH (21:14)
[2022-09-29] MEDS: ATORVASTATIN 20 MG TABLET PO SCH (21:14)
[2022-09-29 23:24] VITALS: BP 133/54
[2022-09-30] MEDS: METRONIDAZOLE 500 MG TABLET PO SCH ×3 (02:08→17:31)
[2022-09-30 03:57] VITALS: BP 103/58
[2022-09-30] MEDS: INSULIN HUMULIN R 100 UNIT/ML 3ML SQ SCH ×5 (06:17→22:32)
[2022-09-30 08:40] VITALS: BP 117/74
[2022-09-30] MEDS: ARIPIPRAZOLE 5 MG TABLET PO SCH (10:04)
[2022-09-30] MEDS: ASPIRIN 81MG CHEW TAB PO SCH (10:05)
[2022-09-30] MEDS: METOPROLOL TARTRATE 50 MG TAB PO SCH ×2 (10:05→22:31)
[2022-09-30] MEDS: PANTOPRAZOLE 40 MG TAB DR PO SCH (10:05)
[2022-09-30] MEDS: ZYVOX 600 MG TAB PO SCH ×2 (10:05→22:30)
[2022-09-30] MEDS: Vitamin B Complex/Vit C/Folic Acid PO SCH (10:05)
[2022-09-30] MEDS: GABAPENTIN 100 MG CAPSULE PO SCH ×2 (10:05→22:30)
[2022-09-30] MEDS: CLOPIDOGREL 75MG TAB PO SCH (10:05)
[2022-09-30] MEDS: FERROUS SULFATE 325 MG TABLET.DR PO SCH ×2 (10:05→22:30)
[2022-09-30] MEDS: VENLAFAXINE HCL 75 MG TAB PO SCH (10:05)
[2022-09-30] MEDS: SERTRALINE HCL 50 MG TABLET PO SCH ×3 (10:06→22:31)
[2022-09-30] MEDS: HEPARIN 5,000 UNIT VIAL SQ SCH ×2 (10:15→22:31)
[2022-09-30 11:07] VITALS: BP 110/54
[2022-09-30 16:04] VITALS: BP 126/72
[2022-09-30 20:57] VITALS: BP 110/67
[2022-09-30] MEDS: ATORVASTATIN 20 MG TABLET PO SCH (22:30)
[2022-09-30] MEDS: TRAZODONE HCL 100 MG TABLET PO SCH (22:30)
[2022-09-30] MEDS: FUROSEMIDE 40MG VIAL IV SCH (22:30)
[2022-10-01] VITALS (20 sets, daily range): BP systolic 90–141; BP diastolic 49–81
[2022-10-01] MEDS: METRONIDAZOLE 500 MG TABLET PO SCH ×3 (02:33→17:30)
[2022-10-01 05:45] LABS: HEMATOCRIT 39.4 % (36-48); MEAN CORPUSCULAR HEMOGLOBIN 27.5 pg (27.0-33.0); MEAN CORPUSCULAR VOLUME 85.8 fL (79-99); RED BLOOD CELL COUNT(AUTO) 4.59 MIL/uL (4.00-5.50); WHITE BLOOD COUNT (AUTO) 10.3 K/uL (4.8-10.8)
[2022-10-01 06:00] LABS: CREATININE 5.7 mg/dL (0.5-1.5); MAGNESIUM 2.2 mg/dL (1.80-2.40); POTASSIUM 4.5 mmol/L (3.5-5.1)
[2022-10-01] MEDS: INSULIN HUMULIN R 100 UNIT/ML 3ML SQ SCH ×4 (06:29→21:00)
[2022-10-01] MEDS: METOPROLOL TARTRATE 50 MG TAB PO SCH ×2 (08:49→20:51)
[2022-10-01] MEDS: VITA D PO SCH (09:00)
[2022-10-01] MEDS: Vitamin B Complex/Vit C/Folic Acid PO SCH (09:39)
[2022-10-01] MEDS: PANTOPRAZOLE 40 MG TAB DR PO SCH (09:39)
[2022-10-01] MEDS: ASPIRIN 81MG CHEW TAB PO SCH (09:39)
[2022-10-01] MEDS: VENLAFAXINE HCL 75 MG TAB PO SCH (09:39)
[2022-10-01] MEDS: GABAPENTIN 100 MG CAPSULE PO SCH ×2 (09:39→20:52)
[2022-10-01] MEDS: CLOPIDOGREL 75MG TAB PO SCH (09:39)
[2022-10-01] MEDS: ARIPIPRAZOLE 5 MG TABLET PO SCH (09:39)
[2022-10-01] MEDS: SERTRALINE HCL 50 MG TABLET PO SCH ×3 (09:40→20:51)
[2022-10-01] MEDS: ZYVOX 600 MG TAB PO SCH ×2 (09:40→20:51)
[2022-10-01] MEDS: FERROUS SULFATE 325 MG TABLET.DR PO SCH ×2 (09:40→20:51)
[2022-10-01] MEDS: HEPARIN 5,000 UNIT VIAL SQ SCH ×2 (09:42→20:53)
[2022-10-01] MEDS: HEPARIN 5,000 UNIT VIAL IRRIG PRN (17:29)
[2022-10-01] MEDS ORDERED: HONEY 1 APPL/ML TUBE TP ONE (20:39)
[2022-10-01] MEDS: TRAZODONE HCL 100 MG TABLET PO SCH (20:51)
[2022-10-01] MEDS: ATORVASTATIN 20 MG TABLET PO SCH (20:51)
[2022-10-01] MEDS: FUROSEMIDE 40MG VIAL IV SCH (20:52)
[2022-10-01] MEDS: TRAMADOL HCL 50 MG TABLET PO PRN (21:47)
[2022-10-02] MEDS: METRONIDAZOLE 500 MG TABLET PO SCH ×2 (02:08→09:53)
[2022-10-02 03:50] VITALS: BP 91/53
[2022-10-02] MEDS: INSULIN HUMULIN R 100 UNIT/ML 3ML SQ SCH ×2 (05:50→11:33)
[2022-10-02 07:30] VITALS: BP 91/60
[2022-10-02] MEDS ORDERED: HONEY 1 APPL/ML TUBE TP SCH (09:00)
[2022-10-02] MEDS: METOPROLOL TARTRATE 50 MG TAB PO SCH (09:00)
[2022-10-02] MEDS: Vitamin B Complex/Vit C/Folic Acid PO SCH (09:53)
[2022-10-02] MEDS: ASPIRIN 81MG CHEW TAB PO SCH (09:53)
[2022-10-02] MEDS: GABAPENTIN 100 MG CAPSULE PO SCH (09:54)
[2022-10-02] MEDS: PANTOPRAZOLE 40 MG TAB DR PO SCH (09:54)
[2022-10-02] MEDS: ZYVOX 600 MG TAB PO SCH (09:54)
[2022-10-02] MEDS: VENLAFAXINE HCL 75 MG TAB PO SCH (09:54)
[2022-10-02] MEDS: SERTRALINE HCL 50 MG TABLET PO SCH (09:54)
[2022-10-02] MEDS: FERROUS SULFATE 325 MG TABLET.DR PO SCH (09:54)
[2022-10-02] MEDS: CLOPIDOGREL 75MG TAB PO SCH (09:54)
[2022-10-02] MEDS: ARIPIPRAZOLE 5 MG TABLET PO SCH (09:54)
[2022-10-02] MEDS: HEPARIN 5,000 UNIT VIAL SQ SCH (09:57)
[2022-10-02 11:25] VITALS: BP 97/53
[2022-10-03] MEDS ORDERED: SULF1TAB42 PO (18:26)
== END 2022-10-02 16:02 | disposition home or self-care (01) | DRG 721 ==
LOC: EDH 14:37 → EDHIP 14:38 → 3CH 09-17 12:13
PROVIDERS: ADMIT Internal Medicine Infectious Disease; ATTEND Internal Medicine Infectious Disease
PROC: 5A1D70Z Performance of Urinary Filtration, Intermittent, Less than 6 Hours Per Day (ICD-10-PCS; 2022-09-17)
PROC: 5A1D70Z Performance of Urinary Filtration, Intermittent, Less than 6 Hours Per Day (ICD-10-PCS; 2022-09-19)
PROC: 5A1D70Z Performance of Urinary Filtration, Intermittent, Less than 6 Hours Per Day (ICD-10-PCS; 2022-09-21)
PROC: 0JBN0ZZ Excision of Right Lower Leg Subcutaneous Tissue and Fascia, Open Approach (ICD-10-PCS; principal; 2022-09-21 08:01)
PROC: 5A1D70Z Performance of Urinary Filtration, Intermittent, Less than 6 Hours Per Day (ICD-10-PCS; 2022-09-24)
PROC: 5A1D70Z Performance of Urinary Filtration, Intermittent, Less than 6 Hours Per Day (ICD-10-PCS; 2022-09-26)
PROC: 5A1D70Z Performance of Urinary Filtration, Intermittent, Less than 6 Hours Per Day (ICD-10-PCS; 2022-09-28)
PROC: 5A1D70Z Performance of Urinary Filtration, Intermittent, Less than 6 Hours Per Day (ICD-10-PCS; 2022-10-01)
DX: T81.49XA Infection following a procedure, other surgical site, initial encounter (principal); J81.0 Acute pulmonary edema; G93.41 Metabolic encephalopathy; I13.2 Hypertensive heart and chronic kidney disease with heart failure and with stage 5 chronic kidney disease, or end stage renal disease; J96.91 Respiratory failure, unspecified with hypoxia; M86.8X6 Other osteomyelitis, lower leg; N18.6 End stage renal disease; E11.69 Type 2 diabetes mellitus with other specified complication; E11.22 Type 2 diabetes mellitus with diabetic chronic kidney disease; D64.9 Anemia, unspecified; L97.919 Non-pressure chronic ulcer of unspecified part of right lower leg with unspecified severity; Z20.822 Contact with and (suspected) exposure to COVID-19; E66.01 Morbid (severe) obesity due to excess calories; E78.00 Pure hypercholesterolemia, unspecified; K86.1 Other chronic pancreatitis; K74.60 Unspecified cirrhosis of liver; I25.10 Atherosclerotic heart disease of native coronary artery without angina pectoris; I50.9 Heart failure, unspecified; Z16.24 Resistance to multiple antibiotics; Z91.199 Patient's noncompliance with other medical treatment and regimen due to unspecified reason; Z99.2 Dependence on renal dialysis; Z82.0 Family history of epilepsy and other diseases of the nervous system; Z82.3 Family history of stroke; Z82.49 Family history of ischemic heart disease and other diseases of the circulatory system; Z82.5 Family history of asthma and other chronic lower respiratory diseases; Z83.3 Family history of diabetes mellitus; Z95.1 Presence of aortocoronary bypass graft; Z86.73 Personal history of transient ischemic attack (TIA), and cerebral infarction without residual deficits; Z68.29 Body mass index [BMI] 29.0-29.9, adult
CPT/HCPCS: 36415; 70450; 71045; 73700; 74176; 80048; 80053; 81001; 82435; 82550; 82803; 82947; 82948; 83036; 83605; 83735; 83874; 83880; 84132; 84145; 84295; 84484; 84703; 85018; 85025; 85027; 85610; 85730; 87070; 87076; 87077; 87186; 87205; 87635; 90935; 93005; 97039; C9803; G0378; J1644; J1815; J1940; J2001; J2020; J2175; J2250; J2405; J2704; J3010; J3370; J3490

== ENCOUNTER 2022-10-03 15:39 | Emergency (ER) | payer MEDICAID ==
[~2022-10-03] VITALS: Ht 154.9 cm; Wt 88.9 kg
[~2022-10-03 15:39] MED LIST changes: +HYDR-3422 PO; +LINA5TAB PO; +PANT40TA54 PO; +SERT-439 PO
[2022-10-03 15:55] VITALS: BP 97/55
[2022-10-03 16:40] LABS: BASOPHILS % (AUTO) 0.5 % (0.0-5.0); EOSINOPHILS % (AUTO) 1.3 % (0.0-8.0); HEMATOCRIT 36.9 % (36-48); LYMPHOCYTES % (AUTO) 19.1 % (21.0-51.0); MEAN CORPUSCULAR HEMOGLOBIN 27.5 pg (27.0-33.0); MEAN CORPUSCULAR HGB CONC 31.7 g/dL (32.0-36.0); MEAN CORPUSCULAR VOLUME 86.8 fL (79-99); MONOCYTES % (AUTO) 9.9 % (3.0-13.0); NEUTROPHILS % (AUTO) 69.1 % (40.0-77.0); PLATELET COUNT (AUTO) 226 K/uL (130-400); RED BLOOD CELL COUNT(AUTO) 4.25 MIL/uL (4.00-5.50); RED CELL DISTRIBUTION WIDTH 14.2 % (11.0-15.5); WHITE BLOOD COUNT (AUTO) 7.9 K/uL (4.8-10.8)
[2022-10-03 16:54] LABS: ALBUMIN 2.9 g/dL (3.5-5.0); CREATININE 6.4 mg/dL (0.5-1.5); POTASSIUM 3.3 mmol/L (3.5-5.1)
[2022-10-03 17:10] LABS: TOTAL PROTEIN, SERUM 8.6 g/dL (6.0-8.3)
[2022-10-03 17:54] LABS: APPEARANCE,URINE CLEAR (CLEAR); BILIRUBIN,URINE NEGATIVE (NEGATIVE); COLOR,URINE ORANGE (YELLOW); GLUCOSE, URINE (UA) NEGATIVE (NEGATIVE); KETONES,URINE NEGATIVE (NEGATIVE); LEUKOCYTE ESTERASE ,URINE 250 Leu/uL (NEGATIVE); NITRATE,URINE NEGATIVE (NEGATIVE); OCCULT BLOOD,URINE NEGATIVE (NEGATIVE); PROTEIN,URINE 30 mg/dL (NEGATIVE); UROBILINOGEN,URINE 0.2 mg/dL (0.2-1.0)
[2022-10-03 17:58] LABS: HCG,QUALITATIVE URINE NEGATIVE (NEGATIVE)
[2022-10-03] MEDS ORDERED: INSULIN HUMULIN R 100 UNIT/ML 3ML IV ONE (18:00)
[2022-10-03] MEDS ORDERED: 0.9%NACL 1000ML 1,000 ML IV ONE (18:00)
[2022-10-03 18:13] LABS: BACTERIA,URINE RARE /HPF (None Seen); MUCUS,URINE RARE LPF (None Seen); YEAST,URINE BUDDING FEW /HPF (None Seen)
[2022-10-03] MEDS ORDERED: SULF1TAB42 PO (18:26)
== END 2022-10-03 18:57 | disposition home or self-care (01) ==
LOC: EDH 15:39
DX: N39.0 Urinary tract infection, site not specified (principal); I25.10 Atherosclerotic heart disease of native coronary artery without angina pectoris; E78.00 Pure hypercholesterolemia, unspecified; I13.0 Hypertensive heart and chronic kidney disease with heart failure and stage 1 through stage 4 chronic kidney disease, or unspecified chronic kidney disease; E11.22 Type 2 diabetes mellitus with diabetic chronic kidney disease; N18.9 Chronic kidney disease, unspecified; I50.9 Heart failure, unspecified; Z99.2 Dependence on renal dialysis; Z79.899 Other long term (current) drug therapy; Z79.82 Long term (current) use of aspirin; Z90.710 Acquired absence of both cervix and uterus; Z90.49 Acquired absence of other specified parts of digestive tract; Z98.890 Other specified postprocedural states; Z88.0 Allergy status to penicillin; Z88.1 Allergy status to other antibiotic agents
CPT/HCPCS: 99283; 96374; 96361; 80053; 85025; 87088; 82948; 81001; 81025; 36415; J1815; J7030

== ENCOUNTER → 2022-11-01 | Outpatient (CLI) | payer MEDICAID ==
[~2022-11-01] MED LIST changes: +HONEY 1 APPL/ML TUBE TP ONE; +LIDOCAINE HCL 4% LTA SOL 4 ML VIAL TP ONE; +SULF1TAB42 PO
== END | disposition home or self-care (01) ==
LOC: WHH 08:17
PROVIDERS: ATTEND Family Medicine
DX: T81.89XD Other complications of procedures, not elsewhere classified, subsequent encounter (principal); S81.001D Unspecified open wound, right knee, subsequent encounter; S61.502D Unspecified open wound of left wrist, subsequent encounter; L03.115 Cellulitis of right lower limb; E11.65 Type 2 diabetes mellitus with hyperglycemia; E11.10 Type 2 diabetes mellitus with ketoacidosis without coma; E11.22 Type 2 diabetes mellitus with diabetic chronic kidney disease; I12.0 Hypertensive chronic kidney disease with stage 5 chronic kidney disease or end stage renal disease; N18.6 End stage renal disease; E78.5 Hyperlipidemia, unspecified; E66.9 Obesity, unspecified; F20.9 Schizophrenia, unspecified; F41.9 Anxiety disorder, unspecified; F32.A Depression, unspecified; Z68.31 Body mass index [BMI] 31.0-31.9, adult; Z95.1 Presence of aortocoronary bypass graft; Z79.899 Other long term (current) drug therapy; Z90.49 Acquired absence of other specified parts of digestive tract; X58.XXXD Exposure to other specified factors, subsequent encounter; Y83.8 Other surgical procedures as the cause of abnormal reaction of the patient, or of later complication, without mention of misadventure at the time of the procedure
CPT/HCPCS: 11042; A6209

== ENCOUNTER → 2022-12-27 | Outpatient (CLI) | payer MEDICAID | END | disposition home or self-care (01) | LOC: WHH 08:56 | PROVIDERS: ATTEND Family Medicine | DX: T81.89XD Other complications of procedures, not elsewhere classified, subsequent encounter (principal); S81.001D Unspecified open wound, right knee, subsequent encounter; S61.502D Unspecified open wound of left wrist, subsequent encounter; L03.115 Cellulitis of right lower limb; E11.65 Type 2 diabetes mellitus with hyperglycemia; E11.10 Type 2 diabetes mellitus with ketoacidosis without coma; E11.22 Type 2 diabetes mellitus with diabetic chronic kidney disease; I12.0 Hypertensive chronic kidney disease with stage 5 chronic kidney disease or end stage renal disease; N18.6 End stage renal disease; E78.5 Hyperlipidemia, unspecified; E66.9 Obesity, unspecified; F20.9 Schizophrenia, unspecified; F41.9 Anxiety disorder, unspecified; F32.A Depression, unspecified; Z68.31 Body mass index [BMI] 31.0-31.9, adult; Z95.1 Presence of aortocoronary bypass graft; Z79.899 Other long term (current) drug therapy; Z90.49 Acquired absence of other specified parts of digestive tract; X58.XXXD Exposure to other specified factors, subsequent encounter; Y83.8 Other surgical procedures as the cause of abnormal reaction of the patient, or of later complication, without mention of misadventure at the time of the procedure | CPT/HCPCS: 11042; 82948 ==

== ENCOUNTER → 2023-01-03 | Outpatient (CLI) | payer MEDICARE, MEDICAID ==
[~2023-01-03] MED LIST changes: -HONEY 1 APPL/ML TUBE TP ONE
== END | disposition home or self-care (01) ==
LOC: WHH 09:58
PROVIDERS: ATTEND Family Medicine
DX: T81.89XD Other complications of procedures, not elsewhere classified, subsequent encounter (principal); S81.001D Unspecified open wound, right knee, subsequent encounter; S61.502D Unspecified open wound of left wrist, subsequent encounter; L03.115 Cellulitis of right lower limb; E11.65 Type 2 diabetes mellitus with hyperglycemia; E11.10 Type 2 diabetes mellitus with ketoacidosis without coma; E11.22 Type 2 diabetes mellitus with diabetic chronic kidney disease; I12.0 Hypertensive chronic kidney disease with stage 5 chronic kidney disease or end stage renal disease; N18.6 End stage renal disease; E78.5 Hyperlipidemia, unspecified; E66.9 Obesity, unspecified; F20.9 Schizophrenia, unspecified; F41.9 Anxiety disorder, unspecified; F32.A Depression, unspecified; Z68.31 Body mass index [BMI] 31.0-31.9, adult; Z95.1 Presence of aortocoronary bypass graft; Z79.899 Other long term (current) drug therapy; Z90.49 Acquired absence of other specified parts of digestive tract; X58.XXXD Exposure to other specified factors, subsequent encounter; Y83.8 Other surgical procedures as the cause of abnormal reaction of the patient, or of later complication, without mention of misadventure at the time of the procedure
CPT/HCPCS: 11042; A6209; A4450

== ENCOUNTER → 2023-01-10 | Outpatient (CLI) | payer MEDICARE, MEDICAID | END | disposition home or self-care (01) | LOC: WHH 10:38 | PROVIDERS: ATTEND Family Medicine | DX: T81.89XD Other complications of procedures, not elsewhere classified, subsequent encounter (principal); S81.001D Unspecified open wound, right knee, subsequent encounter; L03.115 Cellulitis of right lower limb; E11.65 Type 2 diabetes mellitus with hyperglycemia; E11.10 Type 2 diabetes mellitus with ketoacidosis without coma; E11.22 Type 2 diabetes mellitus with diabetic chronic kidney disease; I12.0 Hypertensive chronic kidney disease with stage 5 chronic kidney disease or end stage renal disease; N18.6 End stage renal disease; E78.5 Hyperlipidemia, unspecified; E66.9 Obesity, unspecified; F20.9 Schizophrenia, unspecified; F32.A Depression, unspecified; F41.9 Anxiety disorder, unspecified; Z68.31 Body mass index [BMI] 31.0-31.9, adult; Z95.1 Presence of aortocoronary bypass graft; Z79.899 Other long term (current) drug therapy; Z90.49 Acquired absence of other specified parts of digestive tract; X58.XXXD Exposure to other specified factors, subsequent encounter; Y83.8 Other surgical procedures as the cause of abnormal reaction of the patient, or of later complication, without mention of misadventure at the time of the procedure | CPT/HCPCS: 11042; A6209 ==

== ENCOUNTER 2023-01-14 08:31 | Emergency (ER) | payer MEDICAID ==
[~2023-01-14] VITALS: Ht 154.9 cm; Wt 85.7 kg
[~2023-01-14 08:31] MED LIST changes: -LIDOCAINE HCL 4% LTA SOL 4 ML VIAL TP ONE
[2023-01-14 09:02] LABS: BASOPHILS % (AUTO) 0.4 % (0.0-5.0); EOSINOPHILS % (AUTO) 0.4 % (0.0-8.0); HEMATOCRIT 39.5 % (36-48); LYMPHOCYTES % (AUTO) 16.3 % (21.0-51.0); MEAN CORPUSCULAR HEMOGLOBIN 27.8 pg (27.0-33.0); MEAN CORPUSCULAR HGB CONC 31.6 g/dL (32.0-36.0); MONOCYTES % (AUTO) 5.4 % (3.0-13.0); NEUTROPHILS % (AUTO) 77.1 % (40.0-77.0); PLATELET COUNT (AUTO) 197 K/uL (130-400); RED BLOOD CELL COUNT(AUTO) 4.49 MIL/uL (4.00-5.50); RED CELL DISTRIBUTION WIDTH 13.9 % (11.0-15.5); WHITE BLOOD COUNT (AUTO) 5.5 K/uL (4.8-10.8)
[2023-01-14 09:14] LABS: ALBUMIN 3.3 g/dL (3.5-5.0); CREATININE 2.9 mg/dL (0.5-1.5); POTASSIUM 4.9 mmol/L (3.5-5.1); TOTAL PROTEIN, SERUM 8.4 g/dL (6.0-8.3)
[2023-01-14 10:03] LABS: INR 0.93 (0.85-1.15); PROTHROMBIN TIME 9.8 SEC (9.6-11.6)
[2023-01-14 13:26] VITALS: BP 155/89
== END 2023-01-14 13:34 | disposition home or self-care (01) ==
LOC: EDH 08:31
DX: K29.70 Gastritis, unspecified, without bleeding (principal); K74.60 Unspecified cirrhosis of liver; E11.22 Type 2 diabetes mellitus with diabetic chronic kidney disease; N18.6 End stage renal disease; E78.00 Pure hypercholesterolemia, unspecified; E66.9 Obesity, unspecified; Z68.35 Body mass index [BMI] 35.0-35.9, adult; Z79.82 Long term (current) use of aspirin; Z79.84 Long term (current) use of oral hypoglycemic drugs; Z79.899 Other long term (current) drug therapy; Z88.0 Allergy status to penicillin; Z88.1 Allergy status to other antibiotic agents; Z99.2 Dependence on renal dialysis
CPT/HCPCS: 36415; 76705; 80053; 83690; 85025; 85610

== ENCOUNTER 2023-03-24 18:51 | Emergency (ER) | payer OTHER, MEDICAID ==
[~2023-03-24] VITALS: Ht 154.9 cm; Wt 88.9 kg
[2023-03-24 19:18] LABS: BASOPHILS % (AUTO) 0.5 % (0.0-5.0); EOSINOPHILS % (AUTO) 1.3 % (0.0-8.0); LYMPHOCYTES % (AUTO) 22.9 % (21.0-51.0); MEAN CORPUSCULAR HGB CONC 32.5 g/dL (32.0-36.0); MEAN CORPUSCULAR VOLUME 86.1 fL (79-99); MONOCYTES % (AUTO) 10.7 % (3.0-13.0); NEUTROPHILS % (AUTO) 64.4 % (40.0-77.0); PLATELET COUNT (AUTO) 261 K/uL (130-400); RED BLOOD CELL COUNT(AUTO) 4.18 MIL/uL (4.00-5.50); RED CELL DISTRIBUTION WIDTH 13.5 % (11.0-15.5); WHITE BLOOD COUNT (AUTO) 8.5 K/uL (4.8-10.8)
[2023-03-24 19:41] LABS: CREATININE 3.3 mg/dL (0.5-1.5); POTASSIUM 4.4 mmol/L (3.5-5.1)
[2023-03-24 19:46] LABS: ALBUMIN 3.6 g/dL (3.5-5.0); TOTAL PROTEIN, SERUM 8.2 g/dL (6.0-8.3)
[2023-03-24] MEDS ORDERED: NITROGLYCERIN 1GM OINT 1 INCH/1GM TD ONE (20:00)
[2023-03-24] MEDS ORDERED: METOCLOPRAMIDE 10 MG/2 ML VIAL IVP ONE (20:00)
[2023-03-24] MEDS ORDERED: 0.9%NACL 1000ML 1,000 ML IV ONE (20:00)
[2023-03-24] MEDS ORDERED: FAMOTIDINE 20MG VIAL IV ONE (20:00)
[2023-03-24] MEDS ORDERED: KETOROLAC 30MG VIAL (30MG/ML) IVP ONE (20:00)
[2023-03-24 20:22] LABS: APPEARANCE,URINE CLEAR (CLEAR); BACTERIA,URINE RARE /HPF (None Seen); BILIRUBIN,URINE 0.5 mg/dL (NEGATIVE); COLOR,URINE YELLOW (YELLOW); GLUCOSE, URINE (UA) NEGATIVE (NEGATIVE); KETONES,URINE 5 mg/dL (NEGATIVE); LEUKOCYTE ESTERASE ,URINE 25 Leu/uL (NEGATIVE); MUCUS,URINE RARE LPF (None Seen); NITRATE,URINE NEGATIVE (NEGATIVE); OCCULT BLOOD,URINE NEGATIVE (NEGATIVE); OTHER CASTS, URINE 1 /LPF (None Seen); PH,URINE 5.5 (5.0-8.0); PROTEIN,URINE 200 mg/dL (NEGATIVE); SQUAMOUS EPITHELIAL CELL,UR RARE /HPF (0-2)
[2023-03-24] MEDS ORDERED: MORPHINE 2 MG SYG IM ONE (21:00)
[2023-03-24 21:11] LABS: THYROID STIMULATING HORMONE 1.64 uIU/mL (0.36-3.74)
[2023-03-24] MEDS ORDERED: MORPHINE 4 MG SYG IVP ONE (21:30)
[2023-03-24] MEDS ORDERED: NITROFURANTOIN MONOHYD/M-CRYST 100 MG CAPSULE PO ONE (22:00)
[2023-03-24] MEDS ORDERED: PHENAZOPYRIDINE HCL 200 MG TABLET PO ONE (22:00)
[2023-03-24] MEDS: LACTULOSE 20 GM/30 ML UDCUP PO ONE ×2 (22:16→22:21)
[2023-03-24 22:34] VITALS: BP 126/66
[2023-03-24] MEDS ORDERED: MACR100 PO (23:18)
== END 2023-03-24 23:27 | disposition home or self-care (01) ==
LOC: EDH 18:51
DX: N39.0 Urinary tract infection, site not specified (principal); K59.00 Constipation, unspecified; I25.118 Atherosclerotic heart disease of native coronary artery with other forms of angina pectoris; I10 Essential (primary) hypertension; E11.9 Type 2 diabetes mellitus without complications; Z79.82 Long term (current) use of aspirin; Z79.899 Other long term (current) drug therapy; Z90.49 Acquired absence of other specified parts of digestive tract; Z90.710 Acquired absence of both cervix and uterus; Z98.890 Other specified postprocedural states; Z95.1 Presence of aortocoronary bypass graft; Z88.0 Allergy status to penicillin; Z88.1 Allergy status to other antibiotic agents
CPT/HCPCS: 99285; 96374; 96361; 96375; 71045; 84443; 83735; 84484 ×2; 80053; 83690; 85025; 81001; 36415; 74018; 93005 ×2; 96372; J3490; J2270 ×2; J7030; J1885; J2765

== ENCOUNTER 2023-04-01 12:52 | Emergency (ER) | payer OTHER, MEDICAID ==
[~2023-04-01 12:52] MED LIST changes: -CLOP75TA32 PO; -GABA-529 PO; -INSU100I35 SQ; -METO5 PO
[2023-04-01] MEDS ORDERED: ATOR20TA65 PO (12:59)
[2023-04-01] MEDS ORDERED: INSU100I35 SQ (12:59)
== END 2023-04-01 13:00 | disposition left against medical advice (07) ==
LOC: EDH 12:52
DX: R73.9 Hyperglycemia, unspecified (principal); Z53.21 Procedure and treatment not carried out due to patient leaving prior to being seen by health care provider

== ENCOUNTER → 2023-04-01 | Outpatient (CLI) | payer OTHER, MEDICARE ==
[~2023-04-01] VITALS: Ht 154.9 cm; Wt 97.0 kg
[~2023-04-01] MED LIST changes: +CLOP75TA32 PO; +GABA-529 PO; +INSU100I35 SQ; +MACR100 PO; +METO5 PO
[2023-04-01 11:44] LABS: BASOPHILS % (AUTO) 0.5 % (0.0-5.0); EOSINOPHILS % (AUTO) 1.5 % (0.0-8.0); HEMATOCRIT 31.4 % (36-48); LYMPHOCYTES % (AUTO) 18.1 % (21.0-51.0); MEAN CORPUSCULAR HEMOGLOBIN 27.7 pg (27.0-33.0); MEAN CORPUSCULAR HGB CONC 30.6 g/dL (32.0-36.0); MEAN CORPUSCULAR VOLUME 90.8 fL (79-99); MONOCYTES % (AUTO) 9.8 % (3.0-13.0); NEUTROPHILS % (AUTO) 69.8 % (40.0-77.0); PLATELET COUNT (AUTO) 200 K/uL (130-400); RED BLOOD CELL COUNT(AUTO) 3.46 MIL/uL (4.00-5.50); RED CELL DISTRIBUTION WIDTH 13.9 % (11.0-15.5); WHITE BLOOD COUNT (AUTO) 6.2 K/uL (4.8-10.8)
[2023-04-01 11:54] LABS: INR 0.94 (0.85-1.15); PROTHROMBIN TIME 10.3 SEC (9.6-11.6)
[2023-04-01 11:55] LABS: PARTIAL THROMBOPLASTIN TIME 29.6 SEC (26.3-35.5)
[2023-04-01 11:58] LABS: ALBUMIN 3.4 g/dL (3.5-5.0); CREATININE 3.5 mg/dL (0.5-1.5); POTASSIUM 4.3 mmol/L (3.5-5.1); TOTAL PROTEIN, SERUM 7.8 g/dL (6.0-8.3)
[2023-04-01 12:34] VITALS: BP 108/62
== END | disposition home or self-care (01) ==
LOC: EDSTATUS 10:00 → DAH 10:00
PROVIDERS: ATTEND Student in an Organized Health Care Education/Training Program
DX: Z01.818 Encounter for other preprocedural examination (principal); J90 Pleural effusion, not elsewhere classified; E11.22 Type 2 diabetes mellitus with diabetic chronic kidney disease; I12.0 Hypertensive chronic kidney disease with stage 5 chronic kidney disease or end stage renal disease; Z53.8 Procedure and treatment not carried out for other reasons; N18.6 End stage renal disease; Z99.2 Dependence on renal dialysis; Z82.49 Family history of ischemic heart disease and other diseases of the circulatory system; Z82.3 Family history of stroke; Z83.3 Family history of diabetes mellitus; Z83.438 Family history of other disorder of lipoprotein metabolism and other lipidemia; Z83.6 Family history of other diseases of the respiratory system; Z79.01 Long term (current) use of anticoagulants; Z79.899 Other long term (current) drug therapy; Z79.4 Long term (current) use of insulin
CPT/HCPCS: 71045; 87426; 80053; 85025; 85610; 85730; 82948; 36415; A6260

== ENCOUNTER 2023-04-02 15:56 | Emergency (ER) | payer OTHER, MEDICARE ==
[~2023-04-02] VITALS: Ht 154.9 cm; Wt 94.8 kg
[~2023-04-02 15:56] MED LIST changes: -HYDR-3422 PO; +INSU100I35 SQ; -METO50TA18 PO; -MIDO5 PO; -SULF1TAB42 PO; -VENL75 PO
[2023-04-02 16:56] LABS: BASOPHILS % (AUTO) 0.4 % (0.0-5.0); EOSINOPHILS % (AUTO) 1.3 % (0.0-8.0); HEMATOCRIT 30.7 % (36-48); LYMPHOCYTES % (AUTO) 24.9 % (21.0-51.0); MEAN CORPUSCULAR HGB CONC 32.2 g/dL (32.0-36.0); MONOCYTES % (AUTO) 9.3 % (3.0-13.0); NEUTROPHILS % (AUTO) 63.7 % (40.0-77.0); PLATELET COUNT (AUTO) 203 K/uL (130-400); RED BLOOD CELL COUNT(AUTO) 3.53 MIL/uL (4.00-5.50); RED CELL DISTRIBUTION WIDTH 13.8 % (11.0-15.5); WHITE BLOOD COUNT (AUTO) 5.3 K/uL (4.8-10.8)
[2023-04-02] MEDS ORDERED: MORPHINE 4 MG SYG IVP ONE (17:30)
[2023-04-02] MEDS ORDERED: ONDANSETRON 4MG INJ IVP ONE (17:30)
[2023-04-02 17:48] LABS: CREATININE 2.1 mg/dL (0.5-1.5); POTASSIUM 3.7 mmol/L (3.5-5.1)
[2023-04-02 17:53] LABS: ALBUMIN 3.2 g/dL (3.5-5.0); TOTAL PROTEIN, SERUM 7.6 g/dL (6.0-8.3)
[2023-04-02 18:44] VITALS: BP 146/84
== END 2023-04-02 19:14 | disposition home or self-care (01) ==
LOC: EDH 15:56
DX: E11.22 Type 2 diabetes mellitus with diabetic chronic kidney disease (principal); I12.0 Hypertensive chronic kidney disease with stage 5 chronic kidney disease or end stage renal disease; N18.6 End stage renal disease; E66.9 Obesity, unspecified; I25.10 Atherosclerotic heart disease of native coronary artery without angina pectoris; M19.90 Unspecified osteoarthritis, unspecified site; J90 Pleural effusion, not elsewhere classified; K64.9 Unspecified hemorrhoids; Z79.4 Long term (current) use of insulin; Z99.2 Dependence on renal dialysis; Z79.82 Long term (current) use of aspirin; Z79.84 Long term (current) use of oral hypoglycemic drugs; Z79.899 Other long term (current) drug therapy; Z88.0 Allergy status to penicillin; Z88.1 Allergy status to other antibiotic agents; Z90.49 Acquired absence of other specified parts of digestive tract; Z95.1 Presence of aortocoronary bypass graft; Z90.710 Acquired absence of both cervix and uterus
CPT/HCPCS: 99285; 74176; 96374; 96375; 82270; 80053; 85025; 36415; J2405; J2270

== ENCOUNTER 2023-04-03 13:28 | Observation (INO) | payer OTHER, MEDICARE ==
[~2023-04-03] VITALS: Ht 154.9 cm; Wt 96.1 kg
[2023-04-03] MEDS ORDERED: MORPHINE 2 MG SYG IVP ONE ×2 (14:30→16:30)
[2023-04-03] MEDS ORDERED: ONDANSETRON 4MG INJ IVP ONE (14:30)
[2023-04-03 15:15] LABS: BASOPHILS % (AUTO) 0.3 % (0.0-5.0); EOSINOPHILS % (AUTO) 0.4 % (0.0-8.0); HEMATOCRIT 35.9 % (36-48); LYMPHOCYTES % (AUTO) 13.4 % (21.0-51.0); MEAN CORPUSCULAR HEMOGLOBIN 27.7 pg (27.0-33.0); MEAN CORPUSCULAR HGB CONC 31.2 g/dL (32.0-36.0); MEAN CORPUSCULAR VOLUME 88.6 fL (79-99); MONOCYTES % (AUTO) 7.2 % (3.0-13.0); NEUTROPHILS % (AUTO) 78.3 % (40.0-77.0); PLATELET COUNT (AUTO) 215 K/uL (130-400); RED BLOOD CELL COUNT(AUTO) 4.05 MIL/uL (4.00-5.50); RED CELL DISTRIBUTION WIDTH 13.8 % (11.0-15.5); WHITE BLOOD COUNT (AUTO) 6.8 K/uL (4.8-10.8)
[2023-04-03 15:32] LABS: ALBUMIN 3.6 g/dL (3.5-5.0); CREATININE 2.9 mg/dL (0.5-1.5); POTASSIUM 5.2 mmol/L (3.5-5.1); TOTAL PROTEIN, SERUM 8.5 g/dL (6.0-8.3)
[2023-04-03] MEDS ORDERED: DIATR MEGLU/DIATRIZOATE SODIUM 30 ML BOTTLE ONE (16:19)
[2023-04-03] MEDS ORDERED: METOCLOPRAMIDE 10 MG/2 ML VIAL IVP ONE ×2 (16:30→22:00)
[2023-04-03] MEDS ORDERED: CALCIUM GLUC 1GM/10ML VIAL IV PRN (20:30)
[2023-04-03] MEDS ORDERED: ACETAMINOPHEN 500 MG TABLET PO ONE (20:30)
[2023-04-03] MEDS ORDERED: ACETAMINOPHEN 325 MG TAB PO PRN (21:30)
[2023-04-03] MEDS ORDERED: KAYEXALATE 15GM/60ML RC ONE (21:30)
[2023-04-03] MEDS ORDERED: DEXTROSE 50%-WATER 50 ML DISP.SYRIN IV PRN (21:30)
[2023-04-03] MEDS ORDERED: GLUCAGON 1MG KIT 1 MG ML IM PRN (21:30)
[2023-04-03] MEDS ORDERED: MORPHINE 4 MG SYG IV PRN (21:30)
[2023-04-03] MEDS ORDERED: ONDANSETRON 4MG INJ IV PRN (21:30)
[2023-04-03] MEDS: FUROSEMIDE 40MG VIAL IV SCH (23:13)
[2023-04-04] MEDS: FUROSEMIDE 40MG VIAL IV SCH ×2 (02:37→20:13)
[2023-04-04 02:39] LABS: HEMOGLOBIN A1C 7.8 % (4.0-6.0)
[2023-04-04] MEDS ORDERED: MORPHINE 5 MG/ML VIAL (5MG OR GREATER DOSE) ONE (03:12)
[2023-04-04] MEDS: HYDROCODONE/ACETAMINOPHEN 5/325 MG TAB PO PRN ×3 (03:59→17:11)
[2023-04-04] MEDS: INSULIN HUMULIN 70/30 100 UNIT/ML 3ML SQ SCH (09:00)
[2023-04-04] MEDS ORDERED: HEPARIN 5,000 UNIT VIAL SQ SCH (09:00)
[2023-04-04] MEDS: PANTOPRAZOLE 40 MG TAB DR PO SCH (09:00)
[2023-04-04] MEDS ORDERED: FAMOTIDINE 20MG TAB PO SCH (09:00)
[2023-04-04] MEDS ORDERED: ONDANSETRON 4MG INJ IV PRN (09:00)
[2023-04-04] MEDS: ASPIRIN 81MG CHEW TAB PO SCH (09:00)
[2023-04-04 10:09] LABS: BASOPHILS % (AUTO) 0.4 % (0.0-5.0); EOSINOPHILS % (AUTO) 2.6 % (0.0-8.0); HEMATOCRIT 31.7 % (36-48); LYMPHOCYTES % (AUTO) 30.4 % (21.0-51.0); MEAN CORPUSCULAR HEMOGLOBIN 27.9 pg (27.0-33.0); MEAN CORPUSCULAR HGB CONC 31.5 g/dL (32.0-36.0); MEAN CORPUSCULAR VOLUME 88.5 fL (79-99); MONOCYTES % (AUTO) 10.1 % (3.0-13.0); NEUTROPHILS % (AUTO) 56.1 % (40.0-77.0); PLATELET COUNT (AUTO) 191 K/uL (130-400); RED BLOOD CELL COUNT(AUTO) 3.58 MIL/uL (4.00-5.50); RED CELL DISTRIBUTION WIDTH 13.7 % (11.0-15.5); WHITE BLOOD COUNT (AUTO) 4.9 K/uL (4.8-10.8)
[2023-04-04 10:29] LABS: POTASSIUM 4.4 mmol/L (3.5-5.1); TOTAL PROTEIN, SERUM 7.1 g/dL (6.0-8.3)
[2023-04-04] MEDS: ARIPIPRAZOLE 5 MG TABLET PO SCH (10:36)
[2023-04-04] MEDS: FUROSEMIDE 20 MG TABLET PO SCH ×2 (10:37→20:21)
[2023-04-04] MEDS: FERROUS SULFATE 325 MG TABLET.DR PO SCH ×2 (10:37→20:12)
[2023-04-04] MEDS: SERTRALINE HCL 50 MG TABLET PO SCH ×3 (10:37→20:12)
[2023-04-04] MEDS: Vitamin B Complex/Vit C/Folic Acid PO SCH (10:38)
[2023-04-04] MEDS: GABAPENTIN 100 MG CAPSULE PO SCH ×2 (10:38→20:12)
[2023-04-04] MEDS ORDERED: LIDOCAINE HCL 2% VISCOUS 30 ML, MAG/ALUM/SIMETH 30ML 30 ML, DICYCLOMINE HCL 20 MG PO PRN ×3 (18:30)
[2023-04-04] MEDS: PANTOPRAZOLE 40 MG/VIAL IVP SCH (20:12)
[2023-04-04] MEDS ORDERED: ATORVASTATIN 20 MG TABLET PO SCH (21:00)
[2023-04-04] MEDS ORDERED: TRAZODONE HCL 100 MG TABLET PO SCH (21:00)
[2023-04-05] VITALS (20 sets, daily range): BP systolic 108–162; BP diastolic 52–92
[2023-04-05] MEDS: HYDROCODONE/ACETAMINOPHEN 5/325 MG TAB PO PRN ×2 (03:19→08:24)
[2023-04-05 07:00] LABS: BASOPHILS % (AUTO) 0.4 % (0.0-5.0); HEMATOCRIT 30.4 % (36-48); LYMPHOCYTES % (AUTO) 30.9 % (21.0-51.0); MEAN CORPUSCULAR HGB CONC 31.9 g/dL (32.0-36.0); MEAN CORPUSCULAR VOLUME 87.9 fL (79-99); MONOCYTES % (AUTO) 10.7 % (3.0-13.0); NEUTROPHILS % (AUTO) 55.6 % (40.0-77.0); PLATELET COUNT (AUTO) 195 K/uL (130-400); RED BLOOD CELL COUNT(AUTO) 3.46 MIL/uL (4.00-5.50); RED CELL DISTRIBUTION WIDTH 13.9 % (11.0-15.5)
[2023-04-05 07:21] LABS: ALANINE AMINOTRANSFERASE 27 U/L (12-78); ALBUMIN 3.3 g/dL (3.5-5.0); AMYLASE 24 U/L (25-115); ASPARTATE AMINOTRANSFERASE 29 U/L (10-37); CARBON DIOXIDE 26 mmol/L (21-32); CHLORIDE 92 mmol/L (101-111); CREATININE 3.3 mg/dL (0.5-1.5); GLOMERULAR FILTR. RATE CALC 17 mL/min (>90); GLUCOSE,RANDOM 163 mg/dL (70-105); POTASSIUM 4.5 mmol/L (3.5-5.1); SODIUM SERUM 128 mmol/L (136-145); TOTAL PROTEIN, SERUM 7.5 g/dL (6.0-8.3); UREA NITROGEN, BLOOD 36 mg/dL (7-18)
[2023-04-05 07:25] LABS: LIPASE < 50 U/L (114-286)
[2023-04-05] MEDS: Vitamin B Complex/Vit C/Folic Acid PO SCH (08:24)
[2023-04-05] MEDS: FUROSEMIDE 20 MG TABLET PO SCH (08:25)
[2023-04-05] MEDS: ARIPIPRAZOLE 5 MG TABLET PO SCH (08:25)
[2023-04-05] MEDS: FERROUS SULFATE 325 MG TABLET.DR PO SCH (08:25)
[2023-04-05] MEDS: SERTRALINE HCL 50 MG TABLET PO SCH ×2 (08:25→15:28)
[2023-04-05] MEDS: PANTOPRAZOLE 40 MG TAB DR PO SCH (08:25)
[2023-04-05] MEDS: GABAPENTIN 100 MG CAPSULE PO SCH (08:26)
[2023-04-05] MEDS: ASPIRIN 81MG CHEW TAB PO SCH (08:31)
[2023-04-05] MEDS: PANTOPRAZOLE 40 MG/VIAL IVP SCH (08:31)
[2023-04-05] MEDS: INSULIN HUMULIN 70/30 100 UNIT/ML 3ML SQ SCH (08:31)
[2023-04-05] MEDS: FUROSEMIDE 40MG VIAL IV SCH (09:30)
[2023-04-05] MEDS ORDERED: HEPARIN 5,000 UNIT VIAL IV SCH (11:30)
[2023-04-05] MEDS ORDERED: METOCLOPRAMIDE 10 MG/2 ML VIAL IVP SCH (11:30)
[2023-04-05] MEDS ORDERED: LACTULOSE 20 GM/30 ML UDCUP PO SCH (15:00)
[2023-04-05] MEDS ORDERED: METO5 PO (16:07)
[2023-04-05 20:54] LABS: HEPATITIS B SURFACE ANTIGEN Non-Reactive (Nonreactive)
== END 2023-04-05 17:30 | disposition home or self-care (01) ==
LOC: EDH 13:28 → EDHIP 21:13 → 3CH 04-04 23:47
PROVIDERS: ADMIT Internal Medicine Critical Care Medicine; ATTEND Internal Medicine Critical Care Medicine
DX: R10.9 Unspecified abdominal pain (principal); E11.65 Type 2 diabetes mellitus with hyperglycemia; E87.1 Hypo-osmolality and hyponatremia; K74.60 Unspecified cirrhosis of liver; J90 Pleural effusion, not elsewhere classified; E11.22 Type 2 diabetes mellitus with diabetic chronic kidney disease; N18.6 End stage renal disease; I44.7 Left bundle-branch block, unspecified; J98.11 Atelectasis; I25.10 Atherosclerotic heart disease of native coronary artery without angina pectoris; R60.0 Localized edema; Z88.0 Allergy status to penicillin; Z99.2 Dependence on renal dialysis; Z90.710 Acquired absence of both cervix and uterus; Z95.1 Presence of aortocoronary bypass graft; Z79.899 Other long term (current) drug therapy
CPT/HCPCS: 96374; 96376 ×3; 96375 ×3; 99285; 83036; 84484; 80053 ×3; 83690 ×2; 85025 ×3; 82948 ×5; 36415 ×3; 71045; 74176; 93005; 93971; 82150; 83735; 86706; 87340; 86704; 84145; G0378 ×43; Q9963; J2270 ×3; J0610; J2405; J1940 ×2; J2765 ×3; C9113; J1644; J1815; 90935

== ENCOUNTER 2023-04-08 06:13 | Observation (INO) | payer OTHER, MEDICARE ==
[2023-04-08] VITALS (16 sets, daily range): BP systolic 132–156; BP diastolic 76–101
[~2023-04-08] VITALS: Ht 154.9 cm; Wt 98.8 kg
[~2023-04-08 06:13] MED LIST changes: +METO5 PO
[2023-04-08] MEDS ORDERED: DEXTROSE 50%-WATER 50 ML DISP.SYRIN IV ONE ×2 (06:21→07:00)
[2023-04-08 06:38] LABS: BASOPHILS % (AUTO) 0.3 % (0.0-5.0); EOSINOPHILS % (AUTO) 1.7 % (0.0-8.0); HEMATOCRIT 30.6 % (36-48); LYMPHOCYTES % (AUTO) 27.9 % (21.0-51.0); MEAN CORPUSCULAR HEMOGLOBIN 28.1 pg (27.0-33.0); MEAN CORPUSCULAR HGB CONC 31.7 g/dL (32.0-36.0); MEAN CORPUSCULAR VOLUME 88.7 fL (79-99); MONOCYTES % (AUTO) 10.6 % (3.0-13.0); NEUTROPHILS % (AUTO) 58.9 % (40.0-77.0); PLATELET COUNT (AUTO) 203 K/uL (130-400); RED BLOOD CELL COUNT(AUTO) 3.45 MIL/uL (4.00-5.50); RED CELL DISTRIBUTION WIDTH 14.7 % (11.0-15.5); WHITE BLOOD COUNT (AUTO) 6.9 K/uL (4.8-10.8)
[2023-04-08 06:57] LABS: ALBUMIN 3.1 g/dL (3.5-5.0); CREATININE 3.8 mg/dL (0.5-1.5); POTASSIUM 3.3 mmol/L (3.5-5.1)
[2023-04-08 06:59] LABS: TOTAL PROTEIN, SERUM 7.2 g/dL (6.0-8.3)
[2023-04-08 07:05] LABS: INR 0.96 (0.85-1.15); PROTHROMBIN TIME 10.5 SEC (9.6-11.6)
[2023-04-08 07:06] LABS: PARTIAL THROMBOPLASTIN TIME 28.7 SEC (26.3-35.5)
[2023-04-08] MEDS ORDERED: GABA-529 PO (07:06)
[2023-04-08] MEDS ORDERED: CLOP75TA32 PO (07:06)
[2023-04-08] MEDS ORDERED: SODIUM CL 4MEQ/ML 30ML 154 MEQ in DEXTROSE 10%-WATER 961.5 ML IV SCH (07:30)
[2023-04-08] MEDS ORDERED: MEROPENEM 500 MG VIAL IVPB SCH (08:00)
[2023-04-08] MEDS ORDERED: ONDANSETRON 4MG INJ IVP ONE ×2 (08:00→10:00)
[2023-04-08] MEDS ORDERED: MORPHINE 2 MG SYG IVP ONE (08:00)
[2023-04-08] MEDS ORDERED: DEXTROSE 10%-WATER 1,000 ML IV SCH (08:00)
[2023-04-08 08:02] LABS: APPEARANCE,URINE CLEAR (CLEAR); BILIRUBIN,URINE NEGATIVE (NEGATIVE); COLOR,URINE YELLOW (YELLOW); GLUCOSE, URINE (UA) NEGATIVE (NEGATIVE); KETONES,URINE NEGATIVE (NEGATIVE); LEUKOCYTE ESTERASE ,URINE 250 Leu/uL (NEGATIVE); NITRATE,URINE NEGATIVE (NEGATIVE); OCCULT BLOOD,URINE NEGATIVE (NEGATIVE); PH,URINE 5.5 (5.0-8.0); PROTEIN,URINE 100 mg/dL (NEGATIVE)
[2023-04-08 08:25] LABS: MUCUS,URINE RARE LPF (None Seen); SQUAMOUS EPITHELIAL CELL,UR FEW /HPF (0-2); TRANSITIONAL EPI CELLS,URINE RARE /HPF (None Seen)
[2023-04-08] MEDS ORDERED: KETOROLAC 15MG/ML VIAL (15MG/ML) IV PRN (12:00)
[2023-04-08] MEDS ORDERED: HYDRALAZINE 20MG/ML VIAL IV PRN (12:00)
[2023-04-08] MEDS ORDERED: MEROPENEM 500 MG VIAL IV SCH (12:00)
[2023-04-08] MEDS: FAMOTIDINE 20MG VIAL IV SCH (21:58)
[2023-04-08] MEDS: HEPARIN 5,000 UNIT VIAL SQ SCH (22:02)
[2023-04-08] MEDS ORDERED: HEPARIN 5,000 UNIT VIAL IV SCH (22:30)
[2023-04-08] MEDS: ONDANSETRON 4MG INJ IVP PRN (22:37)
[2023-04-09] VITALS (8 sets, daily range): BP systolic 108–153; BP diastolic 57–99
[2023-04-09] MEDS: HEPARIN 5,000 UNIT VIAL SQ SCH ×2 (00:15→21:00)
[2023-04-09] MEDS: ACETAMINOPHEN 325 MG TAB PO PRN ×3 (03:33→18:20)
[2023-04-09] MEDS ORDERED: KETOROLAC 60 MG VIAL (30MG/ML) IM ONE (04:00)
[2023-04-09] MEDS ORDERED: TRAZODONE HCL 100 MG TABLET PO SCH ×2 (04:00→21:00)
[2023-04-09 06:05] LABS: BASOPHILS % (AUTO) 0.5 % (0.0-5.0); EOSINOPHILS % (AUTO) 1.9 % (0.0-8.0); HEMATOCRIT 30.5 % (36-48); LYMPHOCYTES % (AUTO) 17.9 % (21.0-51.0); MEAN CORPUSCULAR HGB CONC 31.8 g/dL (32.0-36.0); MEAN CORPUSCULAR VOLUME 88.2 fL (79-99); MONOCYTES % (AUTO) 9.4 % (3.0-13.0); PLATELET COUNT (AUTO) 171 K/uL (130-400); RED BLOOD CELL COUNT(AUTO) 3.46 MIL/uL (4.00-5.50); RED CELL DISTRIBUTION WIDTH 14.6 % (11.0-15.5); WHITE BLOOD COUNT (AUTO) 6.4 K/uL (4.8-10.8)
[2023-04-09 06:21] LABS: HEMOGLOBIN A1C 7.7 % (4.0-6.0)
[2023-04-09 06:29] LABS: ALBUMIN 3.2 g/dL (3.5-5.0); CREATININE 3.2 mg/dL (0.5-1.5); MAGNESIUM 1.6 mg/dL (1.80-2.40); POTASSIUM 4.2 mmol/L (3.5-5.1); THYROID STIMULATING HORMONE 3.44 uIU/mL (0.36-3.74); TOTAL PROTEIN, SERUM 7.4 g/dL (6.0-8.3)
[2023-04-09] MEDS: MEROPENEM 500 MG VIAL IV SCH ×2 (08:00→19:47)
[2023-04-09] MEDS: FAMOTIDINE 20MG VIAL IV SCH ×2 (09:00→21:00)
[2023-04-09] MEDS ORDERED: SERTRALINE HCL 50 MG TABLET PO SCH (09:00)
[2023-04-09] MEDS ORDERED: DIATR MEGLU/DIATRIZOATE SODIUM 30 ML BOTTLE ONE (13:56)
[2023-04-09] MEDS ORDERED: PHARMACY COMMUNICATION MISC SCH (16:00)
[2023-04-09] MEDS: SERTRALINE HCL 50 MG TABLET PO SCH (20:54)
[2023-04-09] MEDS: FERROUS SULFATE 325 MG TABLET.DR PO SCH (20:55)
[2023-04-09] MEDS: CIPROFLOXACIN HCL 500 MG TABLET PO SCH (20:55)
[2023-04-09] MEDS: GABAPENTIN 100 MG CAPSULE PO SCH (20:55)
[2023-04-09] MEDS ORDERED: DIPHENHYDRAMINE HCL 25 MG CAPSULE PO PRN (21:00)
[2023-04-09] MEDS ORDERED: NON-FORMULARY MEDICATION 1 EACH (Ferrous Sulfate 325 MG) PO SCH (21:00)
[2023-04-09] MEDS ORDERED: ATORVASTATIN 20 MG TABLET PO SCH (21:00)
[2023-04-09] MEDS: HYDROCODONE/ACETAMINOPHEN 5/325 MG TAB PO PRN (22:01)
[2023-04-10] VITALS (19 sets, daily range): BP systolic 100–164; BP diastolic 50–96
[2023-04-10] MEDS: ACETAMINOPHEN 325 MG TAB PO PRN (04:18)
[2023-04-10] MEDS: HYDROCODONE/ACETAMINOPHEN 5/325 MG TAB PO PRN ×2 (06:17→14:23)
[2023-04-10] MEDS ORDERED: ASPIRIN 81MG CHEW TAB PO SCH (09:00)
[2023-04-10] MEDS ORDERED: ARIPIPRAZOLE 15 MG PO SCH (09:00)
[2023-04-10] MEDS ORDERED: Vitamin B Complex/Vit C/Folic Acid PO SCH (09:00)
[2023-04-10] MEDS ORDERED: CLOPIDOGREL 75MG TAB PO SCH (09:00)
[2023-04-10] MEDS ORDERED: LINAGLIPTIN 5 MG TABLET PO SCH (09:00)
[2023-04-10] MEDS ORDERED: ARIPIPRAZOLE 5 MG TABLET PO SCH (09:00)
[2023-04-10] MEDS ORDERED: NOVOLIN SQ SCH (09:00)
[2023-04-10] MEDS: FAMOTIDINE 20MG VIAL IV SCH ×2 (09:00→09:27)
[2023-04-10] MEDS ORDERED: PANTOPRAZOLE 40 MG TAB DR PO SCH ×2 (09:00)
[2023-04-10] MEDS ORDERED: NON-FORMULARY MEDICATION 1 EACH (Folic Acid/Vitamin B Comp W-C (Nephro-Vite Tablet) 0.8 MG PO SCH (09:00)
[2023-04-10] MEDS: GABAPENTIN 100 MG CAPSULE PO SCH ×2 (09:25→14:21)
[2023-04-10] MEDS: SERTRALINE HCL 50 MG TABLET PO SCH ×2 (09:26→14:21)
[2023-04-10] MEDS: ONDANSETRON 4MG INJ IVP PRN (09:26)
[2023-04-10] MEDS: CIPROFLOXACIN HCL 500 MG TABLET PO SCH (09:27)
[2023-04-10] MEDS: FERROUS SULFATE 325 MG TABLET.DR PO SCH (09:27)
[2023-04-10] MEDS: HEPARIN 5,000 UNIT VIAL SQ SCH (09:33)
[2023-04-10] MEDS ORDERED: PANT40TA PO (13:56)
[2023-04-10] MEDS ORDERED: FAMO10VI2 IV (13:56)
[2023-04-10] MEDS ORDERED: CIPR250S6 PO (13:56)
[2023-04-10] MEDS ORDERED: FERR324T4 PO (13:56)
[2023-04-10] MEDS ORDERED: ARIP5TAB8 PO (13:56)
[2023-04-10] MEDS ORDERED: INSULIN HUMULIN R 100 UNIT/ML 3ML SQ SCH (16:30)
[2023-04-13] MEDS ORDERED: TRAZ-187 PO (15:49)
[2023-04-13] MEDS ORDERED: ERGO2000 PO (16:02)
[2023-04-13] MEDS ORDERED: FERS325 PO (16:02)
== END 2023-04-10 21:16 | disposition home or self-care (01) ==
LOC: EDH 06:13 → EDHIP 11:41 → 3BH 16:15
PROVIDERS: ADMIT Internal Medicine; ATTEND Internal Medicine
DX: N30.90 Cystitis, unspecified without hematuria (principal); R10.12 Left upper quadrant pain; I12.0 Hypertensive chronic kidney disease with stage 5 chronic kidney disease or end stage renal disease; N18.6 End stage renal disease; E11.22 Type 2 diabetes mellitus with diabetic chronic kidney disease; E11.649 Type 2 diabetes mellitus with hypoglycemia without coma; J90 Pleural effusion, not elsewhere classified; E78.00 Pure hypercholesterolemia, unspecified; K76.0 Fatty (change of) liver, not elsewhere classified; K74.60 Unspecified cirrhosis of liver; Z79.4 Long term (current) use of insulin; Z87.440 Personal history of urinary (tract) infections; Z88.0 Allergy status to penicillin; Z88.1 Allergy status to other antibiotic agents; Z90.710 Acquired absence of both cervix and uterus; Z95.1 Presence of aortocoronary bypass graft; Z99.2 Dependence on renal dialysis; Z79.899 Other long term (current) drug therapy; Z98.890 Other specified postprocedural states; Z79.82 Long term (current) use of aspirin; Z90.49 Acquired absence of other specified parts of digestive tract; Z98.891 History of uterine scar from previous surgery
CPT/HCPCS: 96376; 96372 ×3; 96365; 96375; 99285; 82550 ×2; 84484 ×2; 80053 ×2; 85025 ×2; 85610; 85730; 87040 ×2; 87088; 82948 ×9; 83605 ×2; 81001; 36415 ×2; 71045; 76700; 90935 ×2; 83036; 84443; 83735; 83880; 82140; 82533; 74018; 74176; 84145; G0378 ×51; J3490; J2270; J7070; J2405 ×4; J1644 ×5; J2185; Q9963; J1885; Q0163; J7131

== ENCOUNTER 2023-07-19 12:45 | Observation (INO) | payer OTHER, MEDICARE ==
[~2023-07-19 12:45] MED LIST changes: -ARIP15TA2 PO; +ARIP5TAB8 PO; -ASPI-1197 PO; -CLOP-31 PO; +CLOP75TA32 PO; -FURO20TA4 PO; +GABA-529 PO; -GABA100C PO; -INSU100I35 SQ; -MACR100 PO; -METO5 PO; +ONDA-105 PO; -ONDA22I PO; +PANT40TA PO; -PANT40TA54 PO; +PIOG30TA70 PO; -SERT-439 PO; -VITA D PO
[2023-07-19] MEDS ORDERED: 0.9%NACL 1000ML 1,000 ML IV ONE (14:00)
[2023-07-19] MEDS ORDERED: KETOROLAC 30MG VIAL (30MG/ML) IVP ONE (14:00)
[2023-07-19] MEDS ORDERED: METOCLOPRAMIDE 10 MG/2 ML VIAL IVP ONE (14:00)
[2023-07-19] MEDS ORDERED: FAMOTIDINE 20MG VIAL IV ONE (14:00)
[2023-07-19 14:16] LABS: BASOPHILS # (AUTO) 0.02 K/uL (0.00-0.20); BASOPHILS % (AUTO) 0.4 % (0.0-5.0); EOSINOPHILS # (AUTO) 0.08 K/uL (0.00-0.70); EOSINOPHILS % (AUTO) 1.5 % (0.0-8.0); HEMATOCRIT 36.2 % (36-48); IMMATURE GRANULOCYTE ABSOLUTE 0.02 K/uL (0-1); LYMPHOCYTES # (AUTO) 0.8 K/uL (1.0-4.8); LYMPHOCYTES % (AUTO) 15.4 % (21.0-51.0); MEAN CORPUSCULAR HEMOGLOBIN 28.4 pg (27.0-33.0); MEAN CORPUSCULAR HGB CONC 32.3 g/dL (32.0-36.0); MEAN CORPUSCULAR VOLUME 87.9 fL (79-99); MONOCYTES # (AUTO) 0.4 K/uL (0.1-1.0); MONOCYTES % (AUTO) 6.4 % (3.0-13.0); NEUTROPHILS # (AUTO) 4.1 K/uL (1.8-7.7); NEUTROPHILS % (AUTO) 75.9 % (40.0-77.0); PLATELET COUNT (AUTO) 228 K/uL (130-400); RED BLOOD CELL COUNT(AUTO) 4.12 MIL/uL (4.00-5.50); RED CELL DISTRIBUTION WIDTH 17.8 % (11.0-15.5); WHITE BLOOD COUNT (AUTO) 5.4 K/uL (4.8-10.8)
[2023-07-19 14:58] LABS: ALBUMIN 2.8 g/dL (3.5-5.0); CREATININE 2.4 mg/dL (0.5-1.5); POTASSIUM 4.2 mmol/L (3.5-5.1)
[2023-07-19 15:12] LABS: BILIRUBIN,TOTAL 0.6 mg/dL (0.2-1.0); TOTAL PROTEIN, SERUM 7.8 g/dL (6.0-8.3)
[2023-07-19] MEDS ORDERED: INSULIN HUMULIN R 100 UNIT/ML 3ML IV ONE ×2 (15:30)
[2023-07-19 15:35] LABS: APPEARANCE,URINE CLEAR (CLEAR); BILIRUBIN,URINE NEGATIVE (NEGATIVE); COLOR,URINE LIGHT-YELLOW (YELLOW); GLUCOSE, URINE (UA) >=1000 mg/dL (NEGATIVE); KETONES,URINE NEGATIVE (NEGATIVE); LEUKOCYTE ESTERASE ,URINE NEGATIVE Leu/uL (NEGATIVE); NITRATE,URINE NEGATIVE (NEGATIVE); OCCULT BLOOD,URINE SMALL (NEGATIVE); PROTEIN,URINE 200 mg/dL (NEGATIVE); UROBILINOGEN,URINE 0.2 mg/dL (0.2-1.0)
[2023-07-19 15:36] LABS: ADD UA MICROSCOPIC YES
[2023-07-19 15:38] LABS: MUCUS,URINE RARE LPF (None Seen); SQUAMOUS EPITHELIAL CELL,UR RARE /HPF (0-2)
[2023-07-19 15:43] LABS: ABG OXYGEN SATURATION 67.2 % (95.0-99.0); BASE EXCESS,VENOUS BLOOD GAS -0.1 (-2.0-3.0); HCO3,VENOUS BLOOD GAS 23.3 (21.0-28.0); PCO2,VENOUS BLOOD GAS 35 (32-45); PH,VENOUS BLOOD GAS 7.445 (7.350-7.450); PO2,VENOUS BLOOD GAS 33.3 mmHg (35.0-45.0); VENT MODE, BG RA (ROOM AIR)
[2023-07-19] MEDS ORDERED: INSULIN GLARGINE 100 UNITS/ML 10 ML VIAL SQ ONE (16:55)
[2023-07-19] MEDS ORDERED: CLONIDINE HCL 0.1 MG TABLET PO PRN ×2 (17:00)
[2023-07-19] MEDS ORDERED: ACETAMINOPHEN 325 MG TAB PO PRN (17:00)
[2023-07-19] MEDS ORDERED: ONDANSETRON 4MG INJ IVP PRN (17:00)
[2023-07-19] MEDS ORDERED: HYDROMORPHONE 1 MG INJ IVP PRN (17:00)
[2023-07-19] MEDS ORDERED: ACETAMINOPHEN 650 MG SUPPOSITORY RC PRN (17:00)
[2023-07-19] MEDS ORDERED: LACT10SO5 PO (17:14)
[2023-07-19] MEDS ORDERED: QUET50TA24 PO (17:14)
[2023-07-19] MEDS ORDERED: PANT40TA54 PO (17:14)
[2023-07-19] MEDS ORDERED: ARIP15TA18 PO (17:14)
[2023-07-19] MEDS ORDERED: FURO40TA5 PO (17:14)
[2023-07-19] MEDS ORDERED: CITA-106 PO (17:14)
[2023-07-19] MEDS ORDERED: LACTULOSE 20 GM/30 ML UDCUP PO PRN (17:30)
[2023-07-19] MEDS: 0.9%NACL 1000ML 1,000 ML IV SCH (17:38)
[2023-07-19] MEDS: CEFTRIAXONE 1G VIAL IVPB SCH (17:39)
[2023-07-19] MEDS: SIMVASTATIN 20 MG TABLET PO SCH (20:02)
[2023-07-19] MEDS: INSULIN HUMULIN R 100 UNIT/ML 3ML SQ SCH ×2 (20:02→22:29)
[2023-07-19] MEDS: QUETIAPINE FUMARATE 25 MG TAB PO SCH (20:02)
[2023-07-19] MEDS: INSULIN GLARGINE 100 UNITS/ML 10 ML VIAL SQ SCH (20:02)
[2023-07-19] MEDS ORDERED: NON-FORMULARY MEDICATION 1 EACH (Quetiapine Fumarate 50 MG) PO SCH (21:00)
[2023-07-19] MEDS ORDERED: INSULIN REGULAR, HUMAN 3ML 100 UNIT in 0.9%NACL 100ML 99 ML IV PRN ×2 (21:30)
[2023-07-19 22:20] LABS: AMPHET/METH SCREEN,URINE NEGATIVE (NEGATIVE); BARBITURATE SCREEN, URINE NEGATIVE (NEGATIVE); BENZODIAZEPINES SCREEN,URINE NEGATIVE (NEGATIVE); CANNABINOID SCREEN,URINE NEGATIVE (NEGATIVE); COCAINE SCREEN,URINE NEGATIVE (NEGATIVE); OPIATE SCREEN,URINE NEGATIVE (NEGATIVE); PHENCYCLIDINE SCREEN,URINE NEGATIVE (NEGATIVE)
[2023-07-19] MEDS ORDERED: D5W-1/2 NS/20MEQ KCL 1,000 ML IV ONE (23:42)
[2023-07-20 01:39] LABS: SARS-CoV-2, RNA, NAAT NEGATIVE SARS CoV-2 (NEGATIVE)
[2023-07-20 01:44] LABS: INFLUENZA TYPE A Negative For Type A (NEGATIVE); INFLUENZA TYPE B Negative For Type B (NEGATIVE)
[2023-07-20 02:16] LABS: BASOPHILS # (AUTO) 0.02 K/uL (0.00-0.20); BASOPHILS % (AUTO) 0.5 % (0.0-5.0); EOSINOPHILS # (AUTO) 0.09 K/uL (0.00-0.70); EOSINOPHILS % (AUTO) 2.2 % (0.0-8.0); HEMATOCRIT 34.4 % (36-48); IMMATURE GRANULOCYTE ABSOLUTE 0.01 K/uL (0-1); LYMPHOCYTES # (AUTO) 0.9 K/uL (1.0-4.8); MEAN CORPUSCULAR HGB CONC 31.4 g/dL (32.0-36.0); MEAN CORPUSCULAR VOLUME 89.1 fL (79-99); MONOCYTES # (AUTO) 0.3 K/uL (0.1-1.0); MONOCYTES % (AUTO) 6.2 % (3.0-13.0); NEUTROPHILS # (AUTO) 2.8 K/uL (1.8-7.7); NEUTROPHILS % (AUTO) 69.9 % (40.0-77.0); PLATELET COUNT (AUTO) 197 K/uL (130-400); RED BLOOD CELL COUNT(AUTO) 3.86 MIL/uL (4.00-5.50); RED CELL DISTRIBUTION WIDTH 17.3 % (11.0-15.5); WHITE BLOOD COUNT (AUTO) 4.1 K/uL (4.8-10.8)
[2023-07-20 02:24] LABS: CREATININE 2.5 mg/dL (0.5-1.5); MAGNESIUM 1.6 mg/dL (1.80-2.40); PHOSPHORUS 3.1 mg/dL (2.5-4.9); POTASSIUM 3.9 mmol/L (3.5-5.1)
[2023-07-20 02:42] LABS: B-TYPE NATRIURETIC PEPTIDE 1560 pg/mL (0-100)
[2023-07-20] MEDS ORDERED: MAGNESIUM 2GM PREMIX 50ML 50 ML IV ONE (02:50)
[2023-07-20] MEDS ORDERED: POTASSIUM CHLORIDE 10MEQ/100ML 100 ML IV ONE (02:50)
[2023-07-20] MEDS ORDERED: KCL 20 MEQ ERTAB PO PRN (03:00)
[2023-07-20] MEDS ORDERED: POTASSIUM CHLORIDE 10% ELIXIR 20 MEQ/15 ML UDCUP PO PRN (03:00)
[2023-07-20] MEDS ORDERED: MAGNESIUM 2GM PREMIX 50ML 50 ML IV SCH (03:00)
[2023-07-20] MEDS ORDERED: POTASSIUM CHLORIDE 20MEQ/100ML 100 ML IV PRN (03:00)
[2023-07-20] MEDS ORDERED: AZITHROMYCIN 250 MG TABLET PO SCH ×2 (03:00→16:30)
[2023-07-20] MEDS: 0.9%NACL 1000ML 1,000 ML IV SCH (06:48)
[2023-07-20] MEDS: POLYETHYLENE GLYCOL 3350 17 GM POWD.PACK PO SCH (09:00)
[2023-07-20] MEDS ORDERED: NON-FORMULARY MEDICATION 1 EACH (Folic Acid/Vitamin B Comp W-C (Nephro-Vite Tablet) 0.8 MG PO SCH (09:00)
[2023-07-20] MEDS ORDERED: ARIPIPRAZOLE 15 MG PO SCH (09:00)
[2023-07-20] MEDS ORDERED: LACTULOSE 15 GM PO SCH (09:00)
[2023-07-20] MEDS: INSULIN GLARGINE 100 UNITS/ML 10 ML VIAL SQ SCH ×2 (09:24→22:17)
[2023-07-20] MEDS: PANTOPRAZOLE 40 MG TAB DR PO SCH (09:31)
[2023-07-20] MEDS: FERROUS SULFATE 325 MG TABLET.DR PO SCH (09:31)
[2023-07-20] MEDS: CLOPIDOGREL 75MG TAB PO SCH (09:31)
[2023-07-20] MEDS: AMLODIPINE 5 MG TAB PO SCH (09:31)
[2023-07-20] MEDS: Vitamin B Complex/Vit C/Folic Acid PO SCH (09:31)
[2023-07-20] MEDS: CITALOPRAM 20 MG TABLET PO SCH (09:32)
[2023-07-20] MEDS: ASPIRIN 81MG CHEW TAB PO SCH (09:32)
[2023-07-20] MEDS: ENOXAPARIN SODIUM 40 MG/0.4 ML SYRINGE SQ SCH (09:32)
[2023-07-20] MEDS: ARIPIPRAZOLE 5 MG TABLET PO SCH (09:32)
[2023-07-20] MEDS: INSULIN HUMULIN R 100 UNIT/ML 3ML SQ SCH ×3 (11:52→20:45)
[2023-07-20] MEDS ORDERED: TRAMADOL /APAP 37.5MG/325MG TAB PO SCH (14:00)
[2023-07-20 15:00] VITALS: BP 154/86; PULSE 78; RESP 18
[2023-07-20] MEDS: CEFTRIAXONE 1G VIAL IVPB SCH (16:44)
[2023-07-20] MEDS ORDERED: SODIUM CHLORIDE 3% FOR INHALATION 4 ML/AMP VIAL.NEB IH ONE ×2 (18:16→23:12)
[2023-07-20 20:00] VITALS: BP 157/93; PULSE 76; RESP 18
[2023-07-20] MEDS: SIMVASTATIN 20 MG TABLET PO SCH (20:42)
[2023-07-20] MEDS: QUETIAPINE FUMARATE 25 MG TAB PO SCH (20:42)
[2023-07-20] MEDS: AZITHROMYCIN 250 MG TABLET PO SCH (20:43)
[2023-07-20] MEDS: TRAMADOL /APAP 37.5MG/325MG TAB PO PRN (20:44)
[2023-07-20] MEDS: DIPHENHYDRAMINE HCL 25 MG CAPSULE PO PRN (22:14)
[2023-07-21] VITALS (10 sets, daily range): BP systolic 128–147; BP diastolic 85–92; PULSE 76–84; RESP 16–20; O2SAT 98–99
[2023-07-21] MEDS: DIPHENHYDRAMINE HCL 25 MG CAPSULE PO PRN ×4 (02:21→22:40)
[2023-07-21 04:40] LABS: BASOPHILS # (AUTO) 0.02 K/uL (0.00-0.20); BASOPHILS % (AUTO) 0.3 % (0.0-5.0); EOSINOPHILS # (AUTO) 0.13 K/uL (0.00-0.70); EOSINOPHILS % (AUTO) 2.2 % (0.0-8.0); HEMATOCRIT 36.6 % (36-48); IMMATURE GRANULOCYTE ABSOLUTE 0.03 K/uL (0-1); LYMPHOCYTES # (AUTO) 1.4 K/uL (1.0-4.8); LYMPHOCYTES % (AUTO) 22.4 % (21.0-51.0); MEAN CORPUSCULAR HEMOGLOBIN 27.3 pg (27.0-33.0); MEAN CORPUSCULAR HGB CONC 30.9 g/dL (32.0-36.0); MEAN CORPUSCULAR VOLUME 88.4 fL (79-99); MONOCYTES # (AUTO) 0.4 K/uL (0.1-1.0); MONOCYTES % (AUTO) 6.1 % (3.0-13.0); NEUTROPHILS # (AUTO) 4.1 K/uL (1.8-7.7); NEUTROPHILS % (AUTO) 68.5 % (40.0-77.0); PLATELET COUNT (AUTO) 216 K/uL (130-400); RED BLOOD CELL COUNT(AUTO) 4.14 MIL/uL (4.00-5.50)
[2023-07-21 04:47] LABS: ALBUMIN 2.6 g/dL (3.5-5.0); BILIRUBIN,TOTAL 0.5 mg/dL (0.2-1.0); CREATININE 2.7 mg/dL (0.5-1.5); POTASSIUM 4.6 mmol/L (3.5-5.1); TOTAL PROTEIN, SERUM 7.6 g/dL (6.0-8.3)
[2023-07-21] MEDS ORDERED: SODIUM CHLORIDE 3% FOR INHALATION 4 ML/AMP VIAL.NEB IH ONE (05:50)
[2023-07-21] MEDS: TRAMADOL /APAP 37.5MG/325MG TAB PO PRN ×2 (06:16→16:55)
[2023-07-21] MEDS: INSULIN HUMULIN R 100 UNIT/ML 3ML SQ SCH ×4 (06:21→21:00)
[2023-07-21] MEDS: INSULIN GLARGINE 100 UNITS/ML 10 ML VIAL SQ SCH ×2 (06:22→22:46)
[2023-07-21] MEDS: POLYETHYLENE GLYCOL 3350 17 GM POWD.PACK PO SCH (08:35)
[2023-07-21] MEDS: PANTOPRAZOLE 40 MG TAB DR PO SCH (08:35)
[2023-07-21] MEDS: CLOPIDOGREL 75MG TAB PO SCH (08:35)
[2023-07-21] MEDS: AMLODIPINE 5 MG TAB PO SCH (08:35)
[2023-07-21] MEDS: CITALOPRAM 20 MG TABLET PO SCH (08:35)
[2023-07-21] MEDS: Vitamin B Complex/Vit C/Folic Acid PO SCH (08:35)
[2023-07-21] MEDS: FERROUS SULFATE 325 MG TABLET.DR PO SCH (08:35)
[2023-07-21] MEDS: ARIPIPRAZOLE 5 MG TABLET PO SCH (08:35)
[2023-07-21] MEDS: ASPIRIN 81MG CHEW TAB PO SCH (08:35)
[2023-07-21] MEDS: ENOXAPARIN SODIUM 40 MG/0.4 ML SYRINGE SQ SCH (08:35)
[2023-07-21] MEDS ORDERED: LORAZEPAM 2 MG/ML 1 ML VIAL IVP ONE (10:00)
[2023-07-21] MEDS ORDERED: IPRATROPIUM/ALBUTEROL SULFATE 3 ML SOLUTION IH ONE (10:54)
[2023-07-21] MEDS: IPRATROPIUM/ALBUTEROL SULFATE 3 ML SOLUTION IH SCH ×3 (11:10→23:24)
[2023-07-21] MEDS: CEFTRIAXONE 1G VIAL IVPB SCH (16:47)
[2023-07-21] MEDS ORDERED: CEFD300C3 PO (21:20)
[2023-07-21] MEDS: QUETIAPINE FUMARATE 25 MG TAB PO SCH (22:37)
[2023-07-21] MEDS: SIMVASTATIN 20 MG TABLET PO SCH (22:38)
[2023-07-21] MEDS: AZITHROMYCIN 250 MG TABLET PO SCH (22:41)
[2023-07-22] VITALS (21 sets, daily range): BP systolic 103–141; BP diastolic 55–86; PULSE 74–88; RESP 14–18; TEMP 97.6–97.9; O2SAT 97–99
[2023-07-22] MEDS: TRAMADOL /APAP 37.5MG/325MG TAB PO PRN ×2 (00:32→08:39)
[2023-07-22] MEDS: IPRATROPIUM/ALBUTEROL SULFATE 3 ML SOLUTION IH SCH ×2 (06:23→11:03)
[2023-07-22] MEDS: INSULIN GLARGINE 100 UNITS/ML 10 ML VIAL SQ SCH (06:32)
[2023-07-22] MEDS: INSULIN HUMULIN R 100 UNIT/ML 3ML SQ SCH ×2 (06:32→11:30)
[2023-07-22] MEDS: Vitamin B Complex/Vit C/Folic Acid PO SCH (08:36)
[2023-07-22] MEDS: POLYETHYLENE GLYCOL 3350 17 GM POWD.PACK PO SCH (08:36)
[2023-07-22] MEDS: CITALOPRAM 20 MG TABLET PO SCH (08:36)
[2023-07-22] MEDS: FERROUS SULFATE 325 MG TABLET.DR PO SCH (08:36)
[2023-07-22] MEDS: PANTOPRAZOLE 40 MG TAB DR PO SCH (08:36)
[2023-07-22] MEDS: ARIPIPRAZOLE 5 MG TABLET PO SCH (08:36)
[2023-07-22] MEDS: CLOPIDOGREL 75MG TAB PO SCH (08:36)
[2023-07-22] MEDS: ASPIRIN 81MG CHEW TAB PO SCH (08:36)
[2023-07-22] MEDS: ENOXAPARIN SODIUM 40 MG/0.4 ML SYRINGE SQ SCH (08:37)
[2023-07-22] MEDS: AMLODIPINE 5 MG TAB PO SCH (08:41)
[2023-07-22] MEDS ORDERED: HEPARIN 5,000 UNIT VIAL IJ PRN (10:30)
== END 2023-07-22 16:00 | disposition home or self-care (01) ==
LOC: EDH 12:45 → EDHIP 16:55 → 4BH 07-20 14:20
PROVIDERS: ADMIT Internal Medicine Pulmonary Disease; ATTEND Internal Medicine Pulmonary Disease
DX: K85.90 Acute pancreatitis without necrosis or infection, unspecified (principal); Z20.822 Contact with and (suspected) exposure to COVID-19; J15.9 Unspecified bacterial pneumonia; E11.65 Type 2 diabetes mellitus with hyperglycemia; J90 Pleural effusion, not elsewhere classified; D64.9 Anemia, unspecified; E87.1 Hypo-osmolality and hyponatremia; I13.2 Hypertensive heart and chronic kidney disease with heart failure and with stage 5 chronic kidney disease, or end stage renal disease; E11.22 Type 2 diabetes mellitus with diabetic chronic kidney disease; I50.32 Chronic diastolic (congestive) heart failure; N18.6 End stage renal disease; E66.01 Morbid (severe) obesity due to excess calories; I25.10 Atherosclerotic heart disease of native coronary artery without angina pectoris; F41.8 Other specified anxiety disorders; F20.9 Schizophrenia, unspecified; J98.11 Atelectasis; K74.60 Unspecified cirrhosis of liver; M48.061 Spinal stenosis, lumbar region without neurogenic claudication; N30.00 Acute cystitis without hematuria; Z91.148 Patient's other noncompliance with medication regimen for other reason; Z99.2 Dependence on renal dialysis; Z87.442 Personal history of urinary calculi; Z86.74 Personal history of sudden cardiac arrest; Z88.0 Allergy status to penicillin; Z79.899 Other long term (current) drug therapy; Z91.199 Patient's noncompliance with other medical treatment and regimen due to unspecified reason; Z68.41 Body mass index [BMI] 40.0-44.9, adult; Z95.1 Presence of aortocoronary bypass graft
CPT/HCPCS: 81001; 96361 ×2; 96365; 96375 ×2; 99285; 84484; 80053 ×2; 82803; 80305; 83690; 85025 ×3; 82948 ×19; 82010; 36415 ×3; 71045; 74176; 93005; 36600; 96376; 96372 ×3; 96366; 96367; 83735; 84100; 80048; 83880; 87804 ×2; 87635; 72146; 94640 ×8; 84145; 94664; 90935; J1815 ×4; G0378 ×66; J3490; J1170; J0696 ×3; J3480 ×2; J1885; J2765; Q0163 ×5; J3475; J1650 ×3; J2060; J1644; G0257

== ENCOUNTER 2023-09-18 11:05 | Emergency (ER) | payer OTHER, MEDICARE ==
[~2023-09-18] VITALS: Ht 154.9 cm; Wt 90.7 kg
[~2023-09-18 11:05] MED LIST changes: +ARIP15TA18 PO; -ARIP5TAB8 PO; +CEFD300C3 PO; +CITA-106 PO; -FERS325 PO; +FURO40TA5 PO; -GABA-529 PO; +LACT10SO5 PO; +PANT40TA54 PO; +QUET50TA24 PO; -TRAZ-187 PO
[2023-09-18 11:07] VITALS: BP 178/105; PULSE 86; RESP 18
== END 2023-09-18 11:30 | disposition left against medical advice (07) ==
LOC: EDH 11:05
DX: R55 Syncope and collapse (principal); I12.0 Hypertensive chronic kidney disease with stage 5 chronic kidney disease or end stage renal disease; E11.22 Type 2 diabetes mellitus with diabetic chronic kidney disease; N18.6 End stage renal disease; Z99.2 Dependence on renal dialysis; Z79.02 Long term (current) use of antithrombotics/antiplatelets; Z79.84 Long term (current) use of oral hypoglycemic drugs; Z79.899 Other long term (current) drug therapy; Z88.1 Allergy status to other antibiotic agents; Z88.0 Allergy status to penicillin; Z95.1 Presence of aortocoronary bypass graft

== ENCOUNTER 2023-12-14 20:31 | Emergency (ER) | payer OTHER, MEDICARE ==
[~2023-12-14] VITALS: Ht 152.4 cm; Wt 99.8 kg
[2023-12-14 21:06] LABS: ABG BASE EXCESS -3.8 mmol/L (-2.0-3.0); ABG HCO3 20.4 mmol/L (21.0-28.0); ABG OXYGEN SATURATION 91.8 % (95.0-99.0); ABG PCO2 35 mmHg (32-45); ABG PH 7.383 (7.35-7.450); PO2, ARTERIAL BG 62.4 mmHg (83.0-108.0); VENT MODE, BG ROOM AIR (ROOM AIR)
[2023-12-14 21:09] LABS: BASOPHILS # (AUTO) 0.04 K/uL (0.00-0.20); BASOPHILS % (AUTO) 0.7 % (0.0-5.0); EOSINOPHILS # (AUTO) 0.17 K/uL (0.00-0.70); EOSINOPHILS % (AUTO) 2.9 % (0.0-8.0); HEMATOCRIT 34.4 % (36-48); IMMATURE GRANULOCYTE ABSOLUTE 0.03 K/uL (0-1); LYMPHOCYTES # (AUTO) 0.6 K/uL (1.0-4.8); LYMPHOCYTES % (AUTO) 10.5 % (21.0-51.0); MEAN CORPUSCULAR HEMOGLOBIN 28.7 pg (27.0-33.0); MEAN CORPUSCULAR HGB CONC 33.7 g/dL (32.0-36.0); MEAN CORPUSCULAR VOLUME 85.1 fL (79-99); MONOCYTES # (AUTO) 0.6 K/uL (0.1-1.0); MONOCYTES % (AUTO) 9.7 % (3.0-13.0); NEUTROPHILS # (AUTO) 4.5 K/uL (1.8-7.7); NEUTROPHILS % (AUTO) 75.7 % (40.0-77.0); PLATELET COUNT (AUTO) 163 K/uL (130-400); RED BLOOD CELL COUNT(AUTO) 4.04 MIL/uL (4.00-5.50); RED CELL DISTRIBUTION WIDTH 14.6 % (11.0-15.5); WHITE BLOOD COUNT (AUTO) 5.9 K/uL (4.8-10.8)
[2023-12-14 21:53] LABS: ALBUMIN 2.9 g/dL (3.5-5.0); CREATININE 3.1 mg/dL (0.5-1.5); POTASSIUM 3.9 mmol/L (3.5-5.1); TOTAL PROTEIN, SERUM 7.5 g/dL (6.0-8.3)
[2023-12-14 22:06] LABS: APPEARANCE,URINE CLOUDY (CLEAR); BILIRUBIN,URINE NEGATIVE (NEGATIVE); COLOR,URINE YELLOW (YELLOW); GLUCOSE, URINE (UA) >=1000 mg/dL (NEGATIVE); KETONES,URINE NEGATIVE (NEGATIVE); LEUKOCYTE ESTERASE ,URINE NEGATIVE Leu/uL (NEGATIVE); NITRATE,URINE NEGATIVE (NEGATIVE); OCCULT BLOOD,URINE SMALL (NEGATIVE); PH,URINE 5.5 (5.0-8.0); PROTEIN,URINE 200 mg/dL (NEGATIVE); UROBILINOGEN,URINE 0.2 mg/dL (0.2-1.0)
[2023-12-14 22:07] LABS: ADD UA MICROSCOPIC YES
[2023-12-14 22:09] LABS: BACTERIA,URINE RARE /HPF (None Seen); MUCUS,URINE RARE LPF (None Seen); OTHER CASTS, URINE 3 /LPF (None Seen); SQUAMOUS EPITHELIAL CELL,UR MOD /HPF (0-2); UNCLASSIFIED CRYSTAL 1 /HPF (None Seen)
[2023-12-14] MEDS: INSULIN HUMULIN R 100 UNIT/ML 3ML IV ONE (22:25)
[2023-12-14] MEDS: INSULIN HUMULIN R 100 UNIT/ML 3ML ONE (22:28)
[2023-12-14 23:00] VITALS: BP 156/74; PULSE 76; RESP 16; O2SAT 98
[2023-12-18] MEDS ORDERED: GABA-529 PO (05:18)
[2023-12-18] MEDS ORDERED: ATOR10 PO (05:18)
[2023-12-18] MEDS ORDERED: CLON0.5T4 PO (05:18)
[2023-12-18] MEDS ORDERED: CLOP75TA32 PO (05:18)
[2023-12-18] MEDS ORDERED: HYDR-3422 PO (05:18)
[2023-12-18] MEDS ORDERED: FAMO20TA8 PO (05:18)
== END 2023-12-14 23:06 | disposition home or self-care (01) ==
LOC: EDH 20:31
DX: M25.512 Pain in left shoulder (principal); I12.0 Hypertensive chronic kidney disease with stage 5 chronic kidney disease or end stage renal disease; E11.22 Type 2 diabetes mellitus with diabetic chronic kidney disease; N18.6 End stage renal disease; Z99.2 Dependence on renal dialysis; E78.00 Pure hypercholesterolemia, unspecified; Z88.0 Allergy status to penicillin; Z88.1 Allergy status to other antibiotic agents; Z95.1 Presence of aortocoronary bypass graft
CPT/HCPCS: 99285; 96374; 93971; 71045; 84484; 80053; 82803; 85025; 87040 ×2; 87077; 87088; 87186; 82948; 83605; 81001; 36415; 93005; 36600; J1815